=== PATIENT | female | born 1990 | race African-American/Black ===

== ENCOUNTER 2016-05-12 12:18 | Emergency (ER) | payer OTHER ==
[~2016-05-12 12:18] MED LIST: ABIL5TAB; ALBU83IN IN; ALPR0.5T3 OR; AMBI10TA PO; AMBI5TAB; DULO20CA OR; FLOV44AE INH; HYDR25TA8 PO; IBUP600T OR; MOTR200T44 PO; NABU750T PO; PAIN325T OR; PEPC20TA2 PO; PRED20TA PO; PREG50CA OR; SING10TA31 OR; STUACAP PO; TRAM50TA2 OR; TRAZ50TA OR; TYLE325T5 PO; VOLT1GEL EX; ZOLO50TA; ZOLO50TA OR; drisdol PO
[2016-05-12 14:01] LABS: BASO # 0.1 K/mm3 (0.0-0.2); BASO % 1.3 % (0.0-1.0); EOS # 0.1 K/mm3 (0.0-0.50); EOS % 1.2 % (0.0-3.0); LARGE UNSTAINED CELL # 0.1 K/mm3 (0.0-0.4); LARGE UNSTAINED CELL % 2.7 % (0.0-4.0); LYMPH # 1.7 K/mm3 (1.5-6.5); LYMPH % 29.8 % (24.0-44.0); MEAN CORPUSCULAR HEMOGLOBIN 31.4 pg (27.0-33.0); MEAN CORPUSCULAR HGB CONC 33.5 g/dl (32.0-36.5); MEAN CORPUSCULAR VOLUME 93.9 fl (80.0-96.0); MONO # 0.4 K/mm3 (0.0-0.8); MONO % 7.9 % (0.0-5.0); NEUTROPHILS % 57.1 % (36.0-66.0); PLATELET COUNT, AUTOMATED 241 k/mm3 (150-450); RED CELL DISTRIBUTION WIDTH 12.2 % (11.5-14.5); WHITE BLOOD COUNT 5.3 K/mm3 (4.0-10.0)
[2016-05-12 14:22] LABS: ANION GAP 10 MEQ/L (8-16); BLOOD UREA NITROGEN 7 MG/DL (7-18); CALCIUM LEVEL 9.2 MG/DL (8.5-10.1); CARBON DIOXIDE LEVEL 24 MEQ/L (21-32); CHLORIDE LEVEL 105 MEQ/L (98-107); CREATININE FOR GFR 1.09 MG/DL (0.55-1.02); GLOMERULAR FILTRATION RATE > 60.0 (>60); GLUCOSE, FASTING 78 MG/DL (70-105); SODIUM LEVEL 139 MEQ/L (136-145)
--- NOTE | 2016-05-12 14:56 | EDDOCDS ---
Nurse's Notes [facility] Name: Dayna Orantes Age: 26 yrs Sex: Female : 1990 Arrival Date: 05/12/2016 Time: 12:18 Bed D2 Private MD: [facility] - Adults Diagnosis: Shortness of breath;Dizziness and giddiness;Nausea Presentation: 05/12 12:26 Presenting complaint: Patient states: lightheaded, night sweats and chills for 2 days. srm fever last night. feels weak not eating and drinking- nausea. Adult Sepsis Screening: The patient does not have new or worsening altered mentation. Patient's respiratory rate is less than 22. Systolic blood pressure is greater than 100. Patient has a qSOFA score of 0- Negative Sepsis Screen. Suicide/Homicide risk assessment- the patient denies having any suicidal and/or homicidal ideations and does not present with any other emotional, behavioral or mental health complaints. Status: Patient is not a service specialist or dependent. Transition of care: patient was not received from another setting of care. 12:26 Acuity: MIKO Level 4 srm 12:26 Method Of Arrival: Walkin/Carried/Asstd srm Triage Assessment: 12:27 General: Appears in no apparent distress, Behavior is appropriate for age, cooperative. srm Pain: Pain currently is 7 out of 10 on a pain scale. HIV screening NA for this visit Offered previously. RN WOUND: 12:27 LMP 03/30/2016 srm Historical: - Allergies: no known allergies; - Home Meds: 1. none - PMHx: Seasonal Allergies; Asthma; - PSHx: Orthopedic Surgery; - Social history: Smoking status: Patient states former smoker of tobacco. No barriers to communication noted, The patient speaks fluent Croatian, Speaks appropriately for age. - : The pt / caregiver states he / she is not on anticoagulants. Home medication list is obtained from the patient. - Exposure Risk Screening:: None identified. Screenin:55 Screening information is obtained from the patient. Fall risk: No risks identified. mcp Assistance ADL's: requires no assistance with activities of daily living. Abuse/DV Screen: The patient / caregiver reports he/she is: not in a situation that causes fear, pain or injury. Nutritional screening: No deficits noted. Advance Directives: There is no active DNR order. home support is adequate. Assessment: 14:00 General: Mom refusing to have anything done until baby is discharged.. [facility] 14:10 General: Pt stating that we are taking too long and that she is going to leave. [facility] Vital Signs: 12:21 BP 132 / 78; Pulse 110; Resp 18 S; Temp 98.9(O); Pulse Ox 98% on R/A; Weight 70.31 kg gr2 (R); Height 5 ft. 8 in. (172.72 cm) (R); Pain 7/10; 12:21 Body Mass Index 23.57 (70.31 kg, 172.72 cm) 2 Vitals: 12:21 Log In Time: May 12, 2016 at 12:21. gr2 ED Course: 12:20 Patient visited by Tatiana Zavala. gr2 12:20 [facility] is Private Physician. gr2 12:20 Patient moved to Waiting gr2 12:23 Patient visited by Tatiana Zavala. gr2 12:23 Patient moved to Pre RCE gr2 12:27 Triage Initiated srm 13:11 Patient moved to D2 ar3 13:16 Laurie Shelby,RN is Primary Nurse. srm 13:19 Kyle Fairbanks PA-C is PHCP. ar2 13:19 Saul Saldana MD is Attending Physician. ar2 13:19 Patient visited by Kyle Fairbanks PA-C. ar2 14:42 [facility] is Referral Physician. ar2 Order Results: Lab Order: CBC with Diff; SPEC'M 05/12/16 13:46 Test: WHITE BLOOD COUNT; Value: 5.3; Range: 4.0-10.0; Units: K/mm3; Status: F Test: RED BLOOD COUNT; Value: 4.54; Range: 4.00-5.40; Units: M/mm3; Status: F Test: HEMOGLOBIN; Value: 14.3; Range: 12.0-16.0; Units: g/dl; Status: F Test: HEMATOCRIT; Value: 42.7; Range: 36.0-47.0; Units: %; Status: F Test: MEAN CORPUSCULAR VOLUME; Value: 93.9; Range: 80.0-96.0; Units: fl; Status: F Test: MEAN CORPUSCULAR HEMOGLOBIN; Value: 31.4; Range: 27.0-33.0; Units: pg; Status: F Test: MEAN CORPUSCULAR HGB CONC; Value: 33.5; Range: 32.0-36.5; Units: g/dl; Status: F Test: RED CELL DISTRIBUTION WIDTH; Value: 12.2; Range: 11.5-14.5; Units: %; Status: F Test: PLATELET COUNT, AUTOMATED; Value: 241; Range: 150-450; Units: k/mm3; Status: F Test: NEUTROPHILS %; Value: 57.1; Range: 36.0-66.0; Units: %; Status: F Test: LYMPH %; Value: 29.8; Range: 24.0-44.0; Units: %; Status: F Test: MONO %; Value: 7.9; Range: 0.0-5.0; Abnormal: Above high normal; Units: %; Status: F Test: EOS %; Value: 1.2; Range: 0.0-3.0; Units: %; Status: F Test: BASO %; Value: 1.3; Range: 0.0-1.0; Abnormal: Above high normal; Units: %; Status: F Test: LARGE UNSTAINED CELL %; Value: 2.7; Range: 0.0-4.0; Units: %; Status: F Test: NEUTROPHILS #; Value: 3.0; Range: 1.8-7.7; Units: K/mm3; Status: F Test: LYMPH #; Value: 1.7; Range: 1.5-6.5; Units: K/mm3; Status: F Test: MONO #; Value: 0.4; Range: 0.0-0.8; Units: K/mm3; Status: F Test: EOS #; Value: 0.1; Range: 0.0-0.50; Units: K/mm3; Status: F Test: BASO #; Value: 0.1; Range: 0.0-0.2; Units: K/mm3; Status: F Test: LARGE UNSTAINED CELL #; Value: 0.1; Range: 0.0-0.4; Units: K/mm3; Status: F Lab Order: MED Profile; SPEC'M 05/12/16 13:46 Test: GLUCOSE, FASTING; Value: 78; Range: 70-105; Units: MG/DL; Status: F Test: BLOOD UREA NITROGEN; Value: 7; Range: 7-18; Units: MG/DL; Status: F Test: CREATININE FOR GFR; Value: 1.09; Range: 0.55-1.02; Abnormal: Above high normal; Units: MG/DL; Status: F Test: GLOMERULAR FILTRATION RATE; Value: > 60.0; Range: >60; Status: F Test: SODIUM LEVEL; Value: 139; Range: 136-145; Units: MEQ/L; Status: F Test: POTASSIUM SERUM; Value: 4.0; Range: 3.5-5.1; Units: MEQ/L; Status: F Test: CHLORIDE LEVEL; Value: 105; Range: 98-107; Units: MEQ/L; Status: F Test: CARBON DIOXIDE LEVEL; Value: 24; Range: 21-32; Units: MEQ/L; Status: F Test: ANION GAP; Value: 10; Range: 8-16; Units: MEQ/L; Status: F Test: CALCIUM LEVEL; Value: 9.2; Range: 8.5-10.1; Units: MG/DL; Status: F Test Note: ; Units are mL/min/1.73 m2 Chronic Kidney Disease Staging per NKF: Stage I & II GFR >=60 Normal to Mildly Decreased Stage III GFR 30-59 Moderately Decreased Stage IV GFR 15-29 Severely Decreased Stage V GFR <15 Very Little GFR Left ESRD GFR <15 on ADHESION TESTER Lab Order: D-Dimer Quant; SPEC'M 05/12/16 13:46 Test: D-DIMER QUANT; Value: 535.4; Range: <500; Abnormal: Above high normal; Units: ng/ml; Status: F Lab Order: -Influenza A&B Rapid Antigen - Nose; SPEC'M 05/12/16 13:46 Test: INFLUENZA A RAPID SCR by ICA; Value: INFLUENZA A RESULTS NEGATIVE; Status: F Test: INFLUENZA A RAPID SCR by ICA; Value: Comments:; Status: F Test: INFLUENZA B RAPID SCR by ICA; Value: INFLUENZA B RESULTS NEGATIVE; Status: F Test Note: ; The Influenza test is a direct rapid immunoassay for the qualitative detection of Influenza viral antigen. Cell culture (Viral Culture) testing should be considered to confirm NEGATIVE results and to assist in detecting other viruses that can provide similar clinical symptoms. Please contact the lab within 24 hours ([phone]) if confirmatory testing is desired. Outcome: 14:43 Patient left against medical advice. ar2 14:55 The patient is leaving AMA: AMA form signed, Notification of AMA status is made to the [facility] charge nurse, the social welfare clerk, the ED attending physician. 14:56 Patient left the ED. [facility] Signatures: Neda Wells, RN RN [facility] Arlette Wooten RN RN Kyle Duncan PA-C PA-C ar2 Jocelyn Cristina PCA CODING SPECIALIST ar3 Tatiana Zavala gr2 MTDD
--- NOTE | 2016-05-12 14:56 | EDDOCDS ---
Physician Documentation [facility] Name: Dayna Orantes Age: 26 yrs Sex: Female : 1990 Arrival Date: 05/12/2016 Time: 12:18 Bed D2 Private MD: [facility] - Adults Disposition: 05/12/16 14:43 Patient has left against medical advice. Impression: Shortness of breath, Dizziness and giddiness, Nausea. - Patients states they are going to Home/Self Care. - Condition is Unknown. - Discharge Instructions: AMA. Medication Reconciliation, Local Pharmacy Hours form. Follow up: Emergency Department; Reason: Recheck today's complaints, Worsening of conditions. Follow up: [facility] - Adults; When: Call to arrange an appointment; Reason: Continuance of care. - Problem is new. - Symptoms are unchanged. Historical: - Allergies: no known allergies; - Home Meds: 1. none - PMHx: Seasonal Allergies; Asthma; - PSHx: Orthopedic Surgery; - Social history: Smoking status: Patient states former smoker of tobacco. No barriers to communication noted, The patient speaks fluent Bengali, Speaks appropriately for age. - : The pt / caregiver states he / she is not on anticoagulants. Home medication list is obtained from the patient. - Exposure Risk Screening:: None identified. 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 8 in. (172.72 cm) (R); Pain 7/10; 12:21 Body Mass Index 23.57 (70.31 kg, 172.72 cm) gr2 MDM: 13:37 IV Saline Lock ordered. ar2 13:37 Accucheck ordered. ar2 13:37 UCG by Nursing ordered. ar2 13:37 NS 0.9% 1000 ml IV at bolus once ordered. ar2 13:37 Ondansetron 4 mg IVP once ordered. ar2 13:37 Obtain sample by nasopharyngeal swab ordered. ar2 13:37 Urine Toxicology Ordered. EDMS 13:38 CBC with Diff Ordered. EDMS 13:38 MED Profile Ordered. EDMS 13:38 D-Dimer Quant Ordered. EDMS 13:38 -Influenza A&B Rapid Antigen - Nose Ordered. EDMS 14:07 Financial registration complete. lg 14:20 Consult PFS/PSA/International Account Manager: Safety Concerns ordered. ar2 14:20 CBC with Diff Reviewed. ar2 14:20 D-Dimer Quant Reviewed. ar2 14:40 MED Profile Reviewed. ar2 14:40 -Influenza A&B Rapid Antigen - Nose Reviewed. ar2 Signatures: Dispatcher [employer] EDNeda Godoy, RN RN srm Arlette Wooten RN RN mcp Migue Her, Reg Reg lg Kyle Fairbanks, BEATA COTA ar2 MTDD
--- NOTE | 2016-05-14 15:57 | EDDOCDS ---
Nurse's Notes [facility] Name: Dayna Orantes Age: 26 yrs Sex: Female : 1990 Arrival Date: 05/12/2016 Time: 12:18 Bed D2 Private MD: [facility] - Adults Diagnosis: Shortness of breath;Dizziness and giddiness;Nausea Presentation: 05/12 12:26 Presenting complaint: Patient states: lightheaded, night sweats and chills for 2 days. srm fever last night. feels weak not eating and drinking- nausea. Adult Sepsis Screening: The patient does not have new or worsening altered mentation. Patient's respiratory rate is less than 22. Systolic blood pressure is greater than 100. Patient has a qSOFA score of 0- Negative Sepsis Screen. Suicide/Homicide risk assessment- the patient denies having any suicidal and/or homicidal ideations and does not present with any other emotional, behavioral or mental health complaints. Status: Patient is not a correctional food service supervisor or dependent. Transition of care: patient was not received from another setting of care. 12:26 Acuity: MIKO Level 4 srm 12:26 Method Of Arrival: Walkin/Carried/Asstd srm Triage Assessment: 12:27 General: Appears in no apparent distress, Behavior is appropriate for age, cooperative. srm Pain: Pain currently is 7 out of 10 on a pain scale. HIV screening NA for this visit Offered previously. 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 none - PMHx: Seasonal Allergies; Asthma; - PSHx: Orthopedic Surgery; - Social history: Smoking status: Patient states former smoker of tobacco. No barriers to communication noted, The patient speaks fluent Guinean, Speaks appropriately for age. - : The pt / caregiver states he / she is not on anticoagulants. Home medication list is obtained from the patient. - Exposure Risk Screening:: None identified. Screenin:55 Screening information is obtained from the patient. Fall risk: No risks identified. mcp Assistance ADL's: requires no assistance with activities of daily living. Abuse/DV Screen: The patient / caregiver reports he/she is: not in a situation that causes fear, pain or injury. Nutritional screening: No deficits noted. Advance Directives: There is no active DNR order. home support is adequate. Assessment: 14:00 General: Mom refusing to have anything done until baby is discharged.. [facility] 14:10 General: Pt stating that we are taking too long and that she is going to leave. [facility] Social Work Consult: 19:05 Social Work Note: Pt signed out AMA earlier, test show that her D-Dimer was elevated. Phone # listed for pt is out of service. [place] police contacted, went to pt's home and had her call this sql report writer. Pt declines to return to ED, states that she will get this information from her primary doctor tomorrow. No further intervention required at this time. Vital Signs: 12:21 BP 132 / 78; Pulse 110; Resp 18 S; Temp 98.9(O); Pulse Ox 98% on R/A; Weight 70.31 kg gr2 (R); Height 5 ft. 8 in. (172.72 cm) (R); Pain 7/10; 12:21 Body Mass Index 23.57 (70.31 kg, 172.72 cm) gr2 Vitals: 12:21 Log In Time: May 12, 2016 at 12:21. gr2 ED Course: 12:20 Patient visited by Tatiana Zavala. gr2 12:20 [facility] is Private Physician. gr2 12:20 Patient moved to Waiting gr2 12:23 Patient visited by Tatiana Zavala. gr2 12:23 Patient moved to Pre RCE gr2 12:27 Triage Initiated srm 13:11 Patient moved to D2 ar3 13:16 Laurie Shelby,RN is Primary Nurse. srm 13:19 Kyle Fairbanks PA-C is PHCP. ar2 13:19 Saul Saldana MD is Attending Physician. ar2 13:19 Patient visited by Kyle Fairbanks PA-C. ar2 14:42 [facility] is Referral Physician. ar2 16:03 Patient name changed from Dayna\S\\S\Orantes\S\ to Dayna\S\Eleonora\S\Orantes. EDMS 16:04 [facility] Payment Agreement was scanned into [employer] and attached to record. 05/13 09:27 Refusal of Services was scanned into [employer] and attached to record. 09:27 T-Sheet-- Draft Copy was scanned into [employer] and attached to record. gb Attachments: 05/13 09:27 Refusal of Services gb Order Results: Lab Order: CBC with Diff; SPEC'M 05/12/16 13:46 Test: WHITE BLOOD COUNT; Value: 5.3; Range: 4.0-10.0; Units: K/mm3; Status: F Test: RED BLOOD COUNT; Value: 4.54; Range: 4.00-5.40; Units: M/mm3; Status: F Test: HEMOGLOBIN; Value: 14.3; Range: 12.0-16.0; Units: g/dl; Status: F Test: HEMATOCRIT; Value: 42.7; Range: 36.0-47.0; Units: %; Status: F Test: MEAN CORPUSCULAR VOLUME; Value: 93.9; Range: 80.0-96.0; Units: fl; Status: F Test: MEAN CORPUSCULAR HEMOGLOBIN; Value: 31.4; Range: 27.0-33.0; Units: pg; Status: F Test: MEAN CORPUSCULAR HGB CONC; Value: 33.5; Range: 32.0-36.5; Units: g/dl; Status: F Test: RED CELL DISTRIBUTION WIDTH; Value: 12.2; Range: 11.5-14.5; Units: %; Status: F Test: PLATELET COUNT, AUTOMATED; Value: 241; Range: 150-450; Units: k/mm3; Status: F Test: NEUTROPHILS %; Value: 57.1; Range: 36.0-66.0; Units: %; Status: F Test: LYMPH %; Value: 29.8; Range: 24.0-44.0; Units: %; Status: F Test: MONO %; Value: 7.9; Range: 0.0-5.0; Abnormal: Above high normal; Units: %; Status: F Test: EOS %; Value: 1.2; Range: 0.0-3.0; Units: %; Status: F Test: BASO %; Value: 1.3; Range: 0.0-1.0; Abnormal: Above high normal; Units: %; Status: F Test: LARGE UNSTAINED CELL %; Value: 2.7; Range: 0.0-4.0; Units: %; Status: F Test: NEUTROPHILS #; Value: 3.0; Range: 1.8-7.7; Units: K/mm3; Status: F Test: LYMPH #; Value: 1.7; Range: 1.5-6.5; Units: K/mm3; Status: F Test: MONO #; Value: 0.4; Range: 0.0-0.8; Units: K/mm3; Status: F Test: EOS #; Value: 0.1; Range: 0.0-0.50; Units: K/mm3; Status: F Test: BASO #; Value: 0.1; Range: 0.0-0.2; Units: K/mm3; Status: F Test: LARGE UNSTAINED CELL #; Value: 0.1; Range: 0.0-0.4; Units: K/mm3; Status: F Lab Order: MED Profile; [facility]' 05/12/16 13:46 Test: GLUCOSE, FASTING; Value: 78; Range: 70-105; Units: MG/DL; Status: F Test: BLOOD UREA NITROGEN; Value: 7; Range: 7-18; Units: MG/DL; Status: F Test: CREATININE FOR GFR; Value: 1.09; Range: 0.55-1.02; Abnormal: Above high normal; Units: MG/DL; Status: F Test: GLOMERULAR FILTRATION RATE; Value: > 60.0; Range: >60; Status: F Test: SODIUM LEVEL; Value: 139; Range: 136-145; Units: MEQ/L; Status: F Test: POTASSIUM SERUM; Value: 4.0; Range: 3.5-5.1; Units: MEQ/L; Status: F Test: CHLORIDE LEVEL; Value: 105; Range: 98-107; Units: MEQ/L; Status: F Test: CARBON DIOXIDE LEVEL; Value: 24; Range: 21-32; Units: MEQ/L; Status: F Test: ANION GAP; Value: 10; Range: 8-16; Units: MEQ/L; Status: F Test: CALCIUM LEVEL; Value: 9.2; Range: 8.5-10.1; Units: MG/DL; Status: F Test Note: ; Units are mL/min/1.73 m2 Chronic Kidney Disease Staging per NKF: Stage I & II GFR >=60 Normal to Mildly Decreased Stage III GFR 30-59 Moderately Decreased Stage IV GFR 15-29 Severely Decreased Stage V GFR <15 Very Little GFR Left ESRD GFR <15 on NUCLEAR FUELS RESEARCH ENGINEER Lab Order: D-Dimer Quant; SPEC'M 05/12/16 13:46 Test: D-DIMER QUANT; Value: 535.4; Range: <500; Abnormal: Above high normal; Units: ng/ml; Status: F Lab Order: -Influenza A&B Rapid Antigen - Nose; SPEC'M 05/12/16 13:46 Test: INFLUENZA A RAPID SCR by ICA; Value: INFLUENZA A RESULTS NEGATIVE; Status: F Test: INFLUENZA A RAPID SCR by ICA; Value: Comments:; Status: F Test: INFLUENZA B RAPID SCR by ICA; Value: INFLUENZA B RESULTS NEGATIVE; Status: F Test Note: ; The Influenza test is a direct rapid immunoassay for the qualitative detection of Influenza viral antigen. Cell culture (Viral Culture) testing should be considered to confirm NEGATIVE results and to assist in detecting other viruses that can provide similar clinical symptoms. Please contact the lab within 24 hours ([phone]) if confirmatory testing is desired. Outcome: 05/12 14:43 Patient left against medical advice. ar2 14:55 The patient is leaving AMA: AMA form signed, Notification of AMA status is made to the [facility] charge nurse, the social security benefits interviewer, the ED attending physician. 14:56 Patient left the ED. [facility] Signatures: Dispatcher [employer] EDMS Neda Wells RN RN [facility] Arlette Wooten RN RN [facility] Magdiel Griggs, MAURA PSA ac Pricilla Nicole, Reg Reg gb Migue Her, Reg Reg lg Kyle Fairbanks PA-Matteo PAMonica ar2 Jocelyn Cristina, ISAIAS MANAGER ADVERTISING ar3 Tatiana Zavala gr2 Chart Complete MTDD
--- NOTE | 2016-05-14 15:57 | EDDOCDS ---
Physician Documentation [facility] Name: Dayna Orantes Age: 26 yrs Sex: Female : 1990 Arrival Date: 05/12/2016 Time: 12:18 Bed D2 Private MD: [facility] - Adults Disposition: 05/12/16 14:43 Patient has left against medical advice. Impression: Shortness of breath, Dizziness and giddiness, Nausea. - Patients states they are going to Home/Self Care. - Condition is Unknown. - Discharge Instructions: AMA. Medication Reconciliation, Local Pharmacy Hours form. Follow up: Emergency Department; Reason: Recheck today's complaints, Worsening of conditions. Follow up: [facility] - Adults; When: Call to arrange an appointment; Reason: Continuance of care. - Problem is new. - Symptoms are unchanged. Historical: - Allergies: no known allergies; - Home Meds: 1. none - PMHx: Seasonal Allergies; Asthma; - PSHx: Orthopedic Surgery; - Social history: Smoking status: Patient states former smoker of tobacco. No barriers to communication noted, The patient speaks fluent Wolof, Speaks appropriately for age. - : The pt / caregiver states he / she is not on anticoagulants. Home medication list is obtained from the patient. - Exposure Risk Screening:: None identified. 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 8 in. (172.72 cm) (R); Pain 7/10; 12:21 Body Mass Index 23.57 (70.31 kg, 172.72 cm) gr2 MDM: 13:37 IV Saline Lock ordered. ar2 13:37 Accucheck ordered. ar2 13:37 UCG by Nursing ordered. ar2 13:37 NS 0.9% 1000 ml IV at bolus once ordered. ar2 13:37 Ondansetron 4 mg IVP once ordered. ar2 13:37 Obtain sample by nasopharyngeal swab ordered. ar2 13:37 Urine Toxicology Ordered. EDMS 13:38 CBC with Diff Ordered. EDMS 13:38 MED Profile Ordered. EDMS 13:38 D-Dimer Quant Ordered. EDMS 13:38 -Influenza A&B Rapid Antigen - Nose Ordered. EDMS 14:07 Financial registration complete. lg 14:20 Consult PFS/PSA/Breastfeeding Peer Counselor: Safety Concerns ordered. ar2 14:20 CBC with Diff Reviewed. ar2 14:20 D-Dimer Quant Reviewed. ar2 14:40 MED Profile Reviewed. ar2 14:40 -Influenza A&B Rapid Antigen - Nose Reviewed. ar2 16:04 [facility] Payment Agreement was scanned into [email or web address] and attached to record. lg 05/13 09:27 Refusal of Services was scanned into [employer] and attached to record. gb 09:27 T-Sheet-- Draft Copy was scanned into [employer] and attached to record. gb Signatures: Dispatcher [employer] Neda Parra, Arlette Abernathy RN, RN RN mcp Barnhardt, Gloria, Reg Reg gb Migue Her, Reg Reg lg Kyle Fairbanks, BEATA PAMonica ar2 The chart was reviewed and I authenticate all verbal orders and agree with the evaluation and treatment provided.Attachments: 05/12 16:04 [facility] Payment Agreement lg 09:27 T-Sheet-- Draft Copy gb Chart Complete MTDD
--- NOTE | 2016-05-14 15:57 | EDDOCDS ---
Physician Documentation [facility] Name: Dayna Orantes Age: 26 yrs Sex: Female : 1990 Arrival Date: 05/12/2016 Time: 12:18 Bed D2 Private MD: [facility] Disposition: 05/12/16 14:43 Patient has left against medical advice. Impression: Shortness of breath, Dizziness and giddiness, Nausea. - Patients states they are going to Home/Self Care. - Condition is Unknown. - Discharge Instructions: AMA. Medication Reconciliation, Local Pharmacy Hours form. Follow up: Emergency Department; Reason: Recheck today's complaints, Worsening of conditions. Follow up: [facility]; When: Call to arrange an appointment; Reason: Continuance of care. - Problem is new. - Symptoms are unchanged. Historical: - Allergies: no known allergies; - Home Meds: 1. none - PMHx: Seasonal Allergies; Asthma; - PSHx: Orthopedic Surgery; - Social history: Smoking status: Patient states former smoker of tobacco. No barriers to communication noted, The patient speaks fluent Estonian, Speaks appropriately for age. - : The pt / caregiver states he / she is not on anticoagulants. Home medication list is obtained from the patient. - Exposure Risk Screening:: None identified. 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 8 in. (172.72 cm) (R); Pain 7/10; 12:21 Body Mass Index 23.57 (70.31 kg, 172.72 cm) gr2 MDM: 13:37 IV Saline Lock ordered. ar2 13:37 Accucheck ordered. ar2 13:37 UCG by Nursing ordered. ar2 13:37 NS 0.9% 1000 ml IV at bolus once ordered. ar2 13:37 Ondansetron 4 mg IVP once ordered. ar2 13:37 Obtain sample by nasopharyngeal swab ordered. ar2 13:37 Urine Toxicology Ordered. EDMS 13:38 CBC with Diff Ordered. EDMS 13:38 MED Profile Ordered. EDMS 13:38 D-Dimer Quant Ordered. EDMS 13:38 -Influenza A&B Rapid Antigen - Nose Ordered. EDMS 14:07 Financial registration complete. lg 14:20 Consult PFS/PSA/Jail Manager: Safety Concerns ordered. ar2 14:20 CBC with Diff Reviewed. ar2 14:20 D-Dimer Quant Reviewed. ar2 14:40 MED Profile Reviewed. ar2 14:40 -Influenza A&B Rapid Antigen - Nose Reviewed. ar2 16:04 [facility] [place] was scanned into [employer] and attached to record. lg 05/13 09:27 Refusal of Services was scanned into [employer] and attached to record. gb 09:27 T-Sheet-- Draft Copy was scanned into [employer] and attached to record. gb Signatures: Dispatcher [employer] Neda Parra, Arlette Abernathy RN, RN RN mcp Barnhardt, Gloria, Reg Reg gb Migue Her, Reg Reg lg Kyle Fairbanks, BEATA PAMonica ar2 The chart was reviewed and I authenticate all verbal orders and agree with the evaluation and treatment provided.Attachments: 05/12 16:04 [facility] [place] Agreement lg 09:27 T-Sheet-- Draft Copy gb Chart Complete MTDD
== END 2016-05-12 14:13 | disposition left against medical advice (07) ==
LOC: M ED 12:18
DX: R42 Dizziness and giddiness (principal); R11.0 Nausea; R05 Cough; J45.909 Unspecified asthma, uncomplicated; Z87.891 Personal history of nicotine dependence

== ENCOUNTER → 2016-09-01 | Outpatient (CLI) | payer OTHER ==
--- NOTE | 2016-09-02 05:44 | REP ---
Clinical: Paresthesia. Technique: AP, lateral, bilateral oblique views of the right and left hand. Findings: The osseous structures and joint spaces are intact and normal. There is no evidence for acute fracture or dislocation. Surrounding soft tissues are unremarkable. No subcutaneous emphysema or radiodense foreign body. Impression: Normal examination. No acute fracture or dislocation of the right or left hand. Signed by Ryan Bailey MD 09/02/2016 05:35 A
--- NOTE | 2016-09-02 06:15 | REP ---
Clinical: Paresthesia. Technique: AP, lateral, bilateral oblique views right and left wrist. Findings: The carpal bones, surrounding osseous structures, soft tissues, and joint spaces are normal. There is no evidence for acute fracture or dislocation. No subcutaneous emphysema or radiodense foreign body. Impression: Normal wrist series. No acute fracture or dislocation Signed by Ryan Bailey MD 09/02/2016 06:07 A
[2016-09-04 00:06] LABS: Lyme Disease IgG Ab 18 kDa Ban Absent (.); Lyme Disease IgG Ab 23 kDa Ban Present (.); Lyme Disease IgG Ab 28 kDa Ban Absent (.); Lyme Disease IgG Ab 30 kDa Ban Present (.); Lyme Disease IgG Ab 39 kDa Ban Absent (.); Lyme Disease IgG Ab 41 kDa Ban Present (.); Lyme Disease IgG Ab 45 kDa Ban Absent (.); Lyme Disease IgG Ab 58 kDa Ban Absent (.); Lyme Disease IgG Ab 66 kDa Ban Absent (.); Lyme Disease IgG Ab 93 kDa Ban Absent (.); Lyme Disease IgG West Blot Int Negative (.); Lyme Disease IgG/IgM Antibodie <0.91 ISR (0.00-0.90); Lyme Disease IgM Ab 23 kDa Ban Present (.); Lyme Disease IgM Ab 39 kDa Ban Absent (.); Lyme Disease IgM Ab 41 kDa Ban Present (.); Lyme Disease IgM Ab Quantitati 0.97 index (0.00-0.79); Lyme Disease IgM West Blot Int Positive (.)
== END ==
LOC: M LAB 13:08
PROVIDERS: ATTEND Psychiatry & Neurology Neurology
DX: M25.539 Pain in unspecified wrist (principal); R20.2 Paresthesia of skin; M08.9 Juvenile arthritis, unspecified

== ENCOUNTER 2016-09-24 13:41 | Outpatient (RCR) | payer OTHER | END 2016-09-25 | disposition home or self-care (01) | LOC: M PT 13:41 | PROVIDERS: ATTEND Physician Assistant | DX: Z51.89 Encounter for other specified aftercare (principal); M72.2 Plantar fascial fibromatosis; M76.61 Achilles tendinitis, right leg ==

== ENCOUNTER → 2017-02-09 | Outpatient (REF) | payer OTHER ==
[2017-02-09 16:37] LABS: BASO % 0.6 % (0.0-1.0); EOS # 0.2 10^3/uL (0.0-0.50); EOS % 2.9 % (0.0-3.0); IMMATURE GRANULOCYTE % 0.1 % (0-0); LYMPH # 2.5 10^3/uL (1.5-6.5); LYMPH % 37.2 % (24.0-44.0); MEAN CORPUSCULAR HEMOGLOBIN 30.7 pg (27.0-33.0); MEAN CORPUSCULAR HGB CONC 33.4 g/dl (32.0-36.5); MEAN CORPUSCULAR VOLUME 91.7 fl (80.0-96.0); MONO # 0.5 10^3/uL (0.0-0.8); MONO % 6.6 % (0.0-5.0); NEUTROPHILS # 3.6 10^3/uL (1.8-7.7); NEUTROPHILS % 52.6 % (36.0-66.0); PLATELET COUNT, AUTOMATED 268 10^3/uL (150-450); RED CELL DISTRIBUTION WIDTH 12.3 % (11.5-14.5); WHITE BLOOD COUNT 6.8 10^3/uL (4.0-10.0)
[2017-02-09 16:49] LABS: ALBUMIN 4.1 GM/DL (3.2-5.2); ALBUMIN/GLOBULIN RATIO 1.21 (1.00-1.93); ALKALINE PHOSPHATASE 69 U/L (45-117); ALT/SGPT 14 U/L (12-78); ANION GAP 5 MEQ/L (8-16); AST/SGOT 6 U/L (7-37); BILIRUBIN,TOTAL 0.5 MG/DL (0.2-1.0); BLOOD UREA NITROGEN 10 MG/DL (7-18); CARBON DIOXIDE LEVEL 26 MEQ/L (21-32); CHLORIDE LEVEL 109 MEQ/L (98-107); CREATININE FOR GFR 0.89 MG/DL (0.55-1.02); GLOMERULAR FILTRATION RATE > 60.0 (>60); GLUCOSE, FASTING 88 MG/DL (70-105); POTASSIUM SERUM 3.9 MEQ/L (3.5-5.1); SODIUM LEVEL 140 MEQ/L (136-145); TOTAL PROTEIN 7.5 GM/DL (6.4-8.2)
[2017-02-09 17:23] LABS: ERYTHROCYTE SEDIMENTATION RATE 15 mm/hr (0-20)
== END ==
LOC: M LABDRAW1 15:43
PROVIDERS: ATTEND Internal Medicine Infectious Disease
DX: A69.20 Lyme disease, unspecified (principal); R76.8 Other specified abnormal immunological findings in serum

== ENCOUNTER → 2017-02-12 | Outpatient (REF) | payer OTHER | LOC: M SFHCPLAZ 16:08 | PROVIDERS: ATTEND Nurse Practitioner Family | DX: Z00.00 Encounter for general adult medical examination without abnormal findings (principal); E55.9 Vitamin D deficiency, unspecified; F41.8 Other specified anxiety disorders; Z53.9 Procedure and treatment not carried out, unspecified reason ==

== ENCOUNTER 2017-05-18 09:43 | Emergency (ER) | payer OTHER ==
[2017-05-18] MEDS: IPRATROPIUM 0.5MG/ALBUTEROL 2.5MG INH SOL UD 3ML (DUONEB)(J7620) NEB (10:39)
[2017-05-18 10:55] LABS: APPEARANCE, URINE CLEAR (CLEAR); BACTERIA, URINE AUTO NEGATIVE (NEGATIVE); BILIRUBIN, URINE AUTO NEGATIVE (NEGATIVE); BLOOD, URINE BLOOD NEGATIVE (NEGATIVE); COLOR, URINE YELLOW (YELLOW); GLUCOSE, URINE (UA) AUTO NEGATIVE (NEGATIVE); KETONE, URINE AUTO NEGATIVE (NEGATIVE); LEUKOCYTE ESTERASE, URINE AUTO NEGATIVE (NEGATIVE); MUCUS, URINE SMALL (NEGATIVE); NITRITE, URINE AUTO NEGATIVE (NEGATIVE); PROTEIN, URINE AUTO 1+ mg/dL (NEGATIVE); RBC, URINE AUTO 3 /HPF (0-3); SPECIFIC GRAVITY URINE AUTO 1.023 (1.002-1.035); SQUAMOUS EPITHELIAL CELL UR AU 3 /HPF (0-6); UROBILINOGEN, URINE AUTO 0.2 mg/dL (0.0-2.0); WBC, URINE AUTO 2 /HPF (0-3)
[2017-05-18] MEDS: ONDANSETRON 4MG/2ML VIAL (J2405) IV (10:57)
[2017-05-18] MEDS: NS 1,000 ML IV (10:57)
[2017-05-18] MEDS: ACETAMINOPHEN 325 MG TAB PO (10:58)
[2017-05-18 11:06] LABS: BASO % 0.2 % (0.0-1.0); EOS % 0.2 % (0.0-3.0); HEMATOCRIT 40.5 % (36.0-47.0); HEMOGLOBIN 13.8 g/dl (12.0-16.0); IMMATURE GRANULOCYTE % 0.2 % (0-3.0); LYMPH # 1.4 10^3/uL (1.5-6.5); MEAN CORPUSCULAR HEMOGLOBIN 31.2 pg (27.0-33.0); MEAN CORPUSCULAR HGB CONC 34.1 g/dl (32.0-36.5); MEAN CORPUSCULAR VOLUME 91.6 fl (80.0-96.0); MONO # 0.5 10^3/uL (0.0-0.8); MONO % 8.6 % (0.0-5.0); NEUTROPHILS # 3.6 10^3/uL (1.8-7.7); NEUTROPHILS % 65.8 % (36.0-66.0); PLATELET COUNT, AUTOMATED 256 10^3/uL (150-450); RED BLOOD COUNT 4.42 10^6/uL (4.00-5.40); RED CELL DISTRIBUTION WIDTH 12.4 % (11.5-14.5); WHITE BLOOD COUNT 5.5 10^3/uL (4.0-10.0)
[2017-05-18 11:25] LABS: ANION GAP 10 MEQ/L (8-16); BLOOD UREA NITROGEN 9 MG/DL (7-18); CALCIUM LEVEL 8.8 MG/DL (8.5-10.1); CARBON DIOXIDE LEVEL 24 MEQ/L (21-32); CHLORIDE LEVEL 105 MEQ/L (98-107); GLOMERULAR FILTRATION RATE > 60.0 (>60); GLUCOSE, FASTING 89 MG/DL (70-100); POTASSIUM SERUM 3.5 MEQ/L (3.5-5.1); SODIUM LEVEL 139 MEQ/L (136-145)
[2017-05-18 11:32] LABS: LACTIC ACID SEPSIS PROTOCOL 0.8 MMOL/L (0.4-2.0)
[2017-05-18 11:34] LABS: INFLUENZA A AMPLIFICATION NEGATIVE (NEGATIVE); INFLUENZA B AMPLIFICATION POSITIVE (NEGATIVE)
[2017-05-18] MEDS: ALBUTEROL SULFATE 2.5 MG/0.5 ML INH NEB SOLN NEB (11:47)
== END 2017-05-18 12:25 | disposition home or self-care (01) ==
LOC: M ED 09:43
DX: J10.1 Influenza due to other identified influenza virus with other respiratory manifestations (principal); J45.901 Unspecified asthma with (acute) exacerbation; I45.19 Other right bundle-branch block; R51 Headache; R56.9 Unspecified convulsions; Z87.891 Personal history of nicotine dependence; Z79.3 Long term (current) use of hormonal contraceptives
CPT/HCPCS: J2405

== ENCOUNTER 2018-07-30 14:48 | Emergency (ER) | payer OTHER ==
[~2018-07-30] VITALS: Ht 172.7 cm; Wt 88.1 kg
[2018-07-30 14:48] VITALS: BP 158/93
[~2018-07-30 14:48] MED LIST changes: +ALBU83IN INH; +CYMB1CAP4 OR; -DULO20CA OR; +MEDR1VL IM; +NEBUMIS2 XX; +THERPAK PO; +ZOFR4TAB14 PO
[2018-07-30 15:37] LABS: BASO % 0.4 % (0.0-1.0); EOS # 0.2 10^3/uL (0.0-0.50); EOS % 2.8 % (0.0-3.0); HEMATOCRIT 39.1 % (36.0-47.0); HEMOGLOBIN 13.2 g/dl (12.0-15.5); LYMPH # 3.1 10^3/uL (1.5-6.5); LYMPH % 42.2 % (24.0-44.0); MEAN CORPUSCULAR HEMOGLOBIN 31.4 pg (27.0-33.0); MEAN CORPUSCULAR HGB CONC 33.8 g/dl (32.0-36.5); MEAN CORPUSCULAR VOLUME 93.1 fl (80.0-96.0); MONO # 0.5 10^3/uL (0.0-0.8); MONO % 6.5 % (0.0-5.0); NEUTROPHILS # 3.5 10^3/uL (1.8-7.7); NEUTROPHILS % 47.8 % (36.0-66.0); PLATELET COUNT, AUTOMATED 318 10^3/uL (150-450); WHITE BLOOD COUNT 7.4 10^3/uL (4.0-10.0)
[2018-07-30 16:07] LABS: BLOOD UREA NITROGEN 7 MG/DL (7-18); CALCIUM LEVEL 8.7 MG/DL (8.5-10.1); CARBON DIOXIDE LEVEL 23 MEQ/L (21-32); CHLORIDE LEVEL 111 MEQ/L (98-107); CREATININE FOR GFR 1.05 MG/DL (0.55-1.30); GLOMERULAR FILTRATION RATE > 60.0 (>60); GLUCOSE, FASTING 97 MG/DL (70-100); HCG, SERUM QUANTITATIVE < 1.0 MIU/ML; POTASSIUM SERUM 3.9 MEQ/L (3.5-5.1); SODIUM LEVEL 141 MEQ/L (136-145)
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
[2018-07-30 16:18] LABS: APPEARANCE, URINE CLEAR (CLEAR); BACTERIA, URINE AUTO NEGATIVE (NEGATIVE); BILIRUBIN, URINE AUTO NEGATIVE (NEGATIVE); BLOOD, URINE BLOOD NEGATIVE (NEGATIVE); COLOR, URINE YELLOW (YELLOW); GLUCOSE, URINE (UA) AUTO NEGATIVE (NEGATIVE); KETONE, URINE AUTO TRACE mg/dL (NEGATIVE); LEUKOCYTE ESTERASE, URINE AUTO 1+ (NEGATIVE); MUCUS, URINE SMALL (NEGATIVE); NITRITE, URINE AUTO NEGATIVE (NEGATIVE); PROTEIN, URINE AUTO 1+ mg/dL (NEGATIVE); RBC, URINE AUTO 6 /HPF (0-3); SPECIFIC GRAVITY URINE AUTO 1.028 (1.002-1.035); SQUAMOUS EPITHELIAL CELL UR AU 3 /HPF (0-6); UROBILINOGEN, URINE AUTO 0.2 mg/dL (0.0-2.0); WBC, URINE AUTO 2 /HPF (0-3)
== END 2018-07-30 17:00 | disposition left against medical advice (07) ==
LOC: M ED 14:48
DX: R10.2 Pelvic and perineal pain (principal); G43.909 Migraine, unspecified, not intractable, without status migrainosus; J45.909 Unspecified asthma, uncomplicated; F41.9 Anxiety disorder, unspecified; F32.9 Major depressive disorder, single episode, unspecified; F31.9 Bipolar disorder, unspecified; Z79.899 Other long term (current) drug therapy

== ENCOUNTER 2019-06-11 05:21 | Emergency (ER) | payer OTHER ==
[~2019-06-11] VITALS: Ht 172.7 cm; Wt 81.7 kg
[2019-06-11] MEDS ORDERED: NS 1,000 ML IV ONE (07:00)
[2019-06-11] MEDS ORDERED: ONDANSETRON 4MG/2ML VIAL (J2405) IV ONE (07:45)
[2019-06-11 07:46] LABS: BASO % 0.3 % (0.0-1.0); EOS # 0.1 10^3/uL (0.0-0.5); EOS % 1.5 % (0.0-3.0); HEMATOCRIT 40.6 % (36.0-47.0); HEMOGLOBIN 13.5 g/dl (12.0-15.5); MEAN CORPUSCULAR HGB CONC 33.3 g/dl (32.0-36.5); MEAN CORPUSCULAR VOLUME 93.1 fl (80.0-96.0); MONO # 0.6 10^3/uL (0.0-0.8); MONO % 8.1 % (0.0-5.0); NEUTROPHILS # 4.2 10^3/uL (1.5-8.5); NEUTROPHILS % 60.8 % (36.0-66.0); PLATELET COUNT, AUTOMATED 336 10^3/uL (150-450); RED BLOOD COUNT 4.36 10^6/uL (4.00-5.40); WHITE BLOOD COUNT 6.8 10^3/uL (4.0-10.0)
[2019-06-11 08:04] LABS: HCG, SERUM QUALITATIVE NEGATIVE (NEGATIVE)
[2019-06-11 08:11] LABS: INFLUENZA A AMPLIFICATION NEGATIVE (NEGATIVE); INFLUENZA B AMPLIFICATION NEGATIVE (NEGATIVE)
[2019-06-11 08:13] LABS: ALBUMIN 3.8 GM/DL (3.2-5.2); ALT/SGPT 18 U/L (12-78); BILIRUBIN,DIRECT < 0.1 MG/DL (0.0-0.2); BILIRUBIN,TOTAL 0.2 MG/DL (0.2-1.0); BLOOD UREA NITROGEN 9 MG/DL (7-18); CALCIUM LEVEL 8.3 MG/DL (8.5-10.1); CARBON DIOXIDE LEVEL 21 MEQ/L (21-32); CHLORIDE LEVEL 112 MEQ/L (98-107); CK-MB VALUE MASS < 1.0 NG/ML (<3.6); CPK CREATINE PHOSPHOKINASE 93 U/L (26-192); CREATININE FOR GFR 0.94 MG/DL (0.55-1.30); GLOMERULAR FILTRATION RATE > 60.0 (>60); GLUCOSE, FASTING 92 MG/DL (70-100); LIPASE 86 U/L (73-393); MB/CK RELATIVE INDEX 1.08 (< OR =4); SODIUM LEVEL 139 MEQ/L (136-145); TOTAL PROTEIN 7.7 GM/DL (6.4-8.2); TROPONIN I < 0.02 NG/ML (< 0.10)
[2019-06-11] MEDS ORDERED: PANTOPRAZOLE 40MG INJ (PROTONIX) (C9113) IV ONE (09:15)
[2019-06-11] MEDS ORDERED: KETOROLAC 30 MG/ML VIAL (J1885) IV ONE (09:15)
[2019-06-11 09:42] VITALS: BP 133/89
== END 2019-06-11 10:00 | disposition home or self-care (01) ==
LOC: M ED 05:21
DX: R10.84 Generalized abdominal pain (principal); R19.7 Diarrhea, unspecified; Z20.9 Contact with and (suspected) exposure to unspecified communicable disease; A69.20 Lyme disease, unspecified; G43.909 Migraine, unspecified, not intractable, without status migrainosus; F31.9 Bipolar disorder, unspecified; J45.909 Unspecified asthma, uncomplicated; Z87.448 Personal history of other diseases of urinary system
CPT/HCPCS: 80048; 80076; 81001; 82550; 82553; 83690; 84703; 85025; 87502; 96361; 96374; 96375; 99284; C9113; J1885; J2405

== ENCOUNTER → 2019-06-20 | Outpatient (REF) ==
[2019-06-21 08:20] LABS: RUBELLA IgG QUALITATIVE IMMUNE (IMMUNE)
== END ==
LOC: M LAB 14:14
PROVIDERS: ATTEND Nurse Practitioner Adult Health
DX: Z00.00 Encounter for general adult medical examination without abnormal findings (principal)

== ENCOUNTER 2019-09-06 15:03 | Emergency (ER) | payer OTHER ==
[~2019-09-06] VITALS: Ht 172.7 cm; Wt 78.0 kg
[2019-09-06] MEDS ORDERED: ACET-683 PO (15:15)
[2019-09-06] MEDS ORDERED: IBUP200C25 PO (15:15)
[2019-09-06] MEDS ORDERED: CYCL5TAB PO (16:13)
[2019-09-06] MEDS ORDERED: KETO10TAB PO (16:13)
[2019-09-06] MEDS ORDERED: KETOROLAC 60MG 2ML VIAL IM ONE (16:15)
[2019-09-06 16:26] VITALS: BP 146/93
== END 2019-09-06 16:54 | disposition home or self-care (01) ==
LOC: M ED 15:03
DX: M54.31 Sciatica, right side (principal); S86.811A Strain of other muscle(s) and tendon(s) at lower leg level, right leg, initial encounter; Y92.89 Other specified places as the place of occurrence of the external cause; Y93.89 Activity, other specified; Y99.9 Unspecified external cause status
CPT/HCPCS: 96372; 99283; J1885

== ENCOUNTER → 2019-11-09 | Outpatient (CLI) | payer OTHER ==
[~2019-11-09] MED LIST changes: +ACET-683 PO; +AMOX500T; +CYCL5TAB PO; +HYDR-3715 PO; +IBUP200C25 PO; +KETO10TAB PO; +VENTAER INH
--- NOTE | 2019-12-19 08:42 | REP ---
PELVIC ULTRASOUND: HISTORY: Right pelvic pain. FINDINGS: Real time sonographic imaging of the pelvis is performed utilizing transabdominal and endovaginal technique. The bladder measures 6.4 x 5.1 cm. The uterus measures 7.7 x 4.3 x 4.5 cm. Endometrial thickness is 3 mm. There is no endometrial fluid collection. The right ovary is somewhat enlarged, measuring 4.1 x 3.9 x 3.8 cm. The left ovary measures 2.9 x 1.3 x 1.8 cm. There is a complex likely hemorrhagic cyst of the right ovary containing internal echos and septations. This measures 3.8 x 3.3 x 3.5 cm. There is no other evidence of adnexal mass or free fluid. There is no evidence of ovarian torsion with duplex Doppler evaluation. IMPRESSION: Complex cyst right ovary 3.8 cm maximally. No free fluid or torsion. MTDD
== END ==
LOC: M WHC 15:00
PROVIDERS: ATTEND Physician Assistant
DX: N83.201 Unspecified ovarian cyst, right side (principal)

== ENCOUNTER 2020-01-29 15:29 | Emergency (ER) | payer OTHER ==
[~2020-01-29] VITALS: Ht 175.3 cm; Wt 84.7 kg
[~2020-01-29 15:29] MED LIST changes: -AMOX500T; -HYDR-3715 PO; -VENTAER INH
[2020-01-29] MEDS ORDERED: AMOX500T (15:40)
[2020-01-29] MEDS ORDERED: VENTAER INH (15:40)
[2020-01-29] MEDS ORDERED: LIDOCAINE VISCOUS 2% SOLN 15ML UDC SS ONE (16:30)
[2020-01-29] MEDS ORDERED: HYDR-3715 PO (16:59)
[2020-01-29 17:03] VITALS: BP 152/75
== END 2020-01-29 17:34 | disposition home or self-care (01) ==
LOC: M ED 15:29
DX: K08.89 Other specified disorders of teeth and supporting structures (principal); J45.909 Unspecified asthma, uncomplicated; F31.9 Bipolar disorder, unspecified; G43.909 Migraine, unspecified, not intractable, without status migrainosus; F41.9 Anxiety disorder, unspecified

== ENCOUNTER → 2020-02-15 | Outpatient (REF) | payer OTHER, SELFPAY ==
[~2020-02-15] MED LIST changes: +AMOX500T; +HYDR-3715 PO; +VENTAER INH
== END ==
LOC: M LABSMTC 08:00 → EDSTATUS 13:20
PROVIDERS: ATTEND Pediatrics
DX: Z20.828 Contact with and (suspected) exposure to other viral communicable diseases (principal)

== ENCOUNTER 2020-04-14 07:32 | Emergency (ER) | payer OTHER, SELFPAY ==
[~2020-04-14] VITALS: Ht 172.7 cm; Wt 82.0 kg
[2020-04-14 07:33] VITALS: BP 141/94
--- OUTSIDE RECORDS SUMMARY | 2020-04-14 07:43 | CCD ---
Author Author [facility] Organization [facility] Address Unknown Phone Unavailable Care Team Providers Care Rake Operator Name Role Phone Yashira Morgan Unavailable PROBLEMS Type Condition ICD9-CM Code [id number] Code Onset Dates Condition S tatus SNOMED Code Notes Problem Vitamin D deficiency E55.9 Active 27958150 Problem Depression with anxiety F41.8 Active 64589273 6 Problem Lyme disease A69.20 Active 73271095 Problem Unspecified asthma, uncomplicated J45.909 Active 05019173 Problem Migraine without status migr ainosus, not intractable, unspecified migraine type G43.909 Active 22029828 Problem ANTONI (generalized anxiety disorder) F41.1 Activ e 61104159 Problem Rheumatoid factor positive R76.8 Active 98937 9004 Problem Depressive disorder F32.9 Active 79931189 ALLERGIES Allergen (clinical drug ingredient) Drug/Non Drug Allergy do cumented on EMR Reaction Allergy Type Onset Date Status seasonal Unknown Non Drug Allergy Active ENCOUNTERS from 1989 to 2020-02-21 Encounter Location Date Provider Diagnosis [address] [address] Sep, Yashira Eddie Right lower quadrant pain R10.31 ; Lyme disease A69.20 ; ANTONI (generalized anxiety disorder) F41.1 ; Depression with anxiety F41.8 ; Migraine without status migrainosus, not intractable, unspecified migraine type G43.909 ; Rheumatoid factor positive R76.8 ; Unspecified asthma, uncomplicated J45.909 ; Vitamin D deficiency E55.9 and Screening for lipid disorders Z13.220 IMMUNIZATIONS Vaccine Route Administration Date Status Influenza (6mo & up) Fluzone Unknown Feb 12, 2017 Adm inistered SOCIAL HISTORY Tobacco Use: Social History Observation Description Date Details (start date - stop date) Former Smoker Sex Assigned At : Social History Observation Description Sex Assigned At Unknown Audit Question Answer Notes Total Score: 1 Interpretation: Alcohol Education Sexual Hx: Question Answer Notes Had sex in the last 12 months (vaginal, oral, or anal)? Yes LMP: 10/16/2019 Have you ever had an STD? Yes Prevention Strategies discussed: Other with Men only Use protection? Yes Chlamydia? Yes How often? 20% Drug and Alcohol Question Answer Notes Interpretation: No problems reported Total Score: 0 Alcohol Screening: Question Answer Notes Did you have a drink containing alcohol in the past year? Ye s Points 1 Interpretation Negative How often did you have six or more drinks on one occas ion in the past year? Never (0 points) How many drinks did you have on a typica l day when you were drinking in the past year? 1 or 2 (0 points) How often did you have a drink containing alcohol in t he past year? Monthly or less (1 point) Tobacco Use: Question Answer Notes Are you a: former smoker How long has it been since you last smoked? 1-5 years REASON FOR REFERRAL No Information VITAL SIGNS Weight 183.2 lbs Sep, Height 67.5 in Sep, BMI 28.27 kg/m2 Sep, Heart Rate 100 /min Sep, Respiratory Rate 18 /min Sep, Temperature 97.9 degrees Fahrenheit Sep, Oximetry 99 Sep, Blood pressure systolic 120 mm Hg Sep, Blood pressure diastolic 82 mm Hg Sep, MEDICATIONS Medication SIG (Take, Route, Frequency, Duration) Notes Start Da te End Date Status Ibuprofen 200 MG 3 tablet every 4 hours Orally every 4 hours Active Diflucan 150 MG 1 tablet Orally take at onse t of symptoms; repeat after 72 hours if your symptoms persist for 4 days Jan, Active Albuterol Sulfate HFA 108 (90 Base) MCG/ACT 2 puffs In halation as needed for 30 days Sep, Active Hydrocodone-Acetaminophen 5-325 MG 1 tablet as needed Orally three times a day as needed for 5 days Jan, Active Doxycycline Hyclate 100 MG 1 tablet Orally every 12 hrs Jan, Not-Taking Desvenlafaxine Succinate ER 25 MG 2 tablets Orally Once a day Not-Taking Depo-Provera 150 MG/ML 1 ml Intramuscular Not-Taking Cyclobenzaprine HCl 5 MG 1 tablet at bedtime Orally As needed Not-Taking Ibuprofen 800 MG 1 tablet with food or milk a s needed Orally three times a day as needed for 30 days Jan, Active Augmentin 875-125 MG 1 tablet Orally Twice a day for 10 day(s) Jan, Active Ketorolac Tromethamine 10 MG 1 tablet with food or mil k as needed Orally every 6 hrs for 5 day(s) Not-Taking Paxil 20 MG 1 tablet in the morning Orally Once a day Not-Taking PROCEDURES No Information RESULTS REASON FOR VISIT transfer from [facility] MEDICAL (GENERAL) HISTORY Type Description Date Medical History Right ankle/foot pain Medical History Migraine Medical History Depression/anxiety Surgical History Right foot surgery for Ankle Fx Hospitalization History Suicidal ideations in [facility] 03/2010 Goals Section No Information Health Concerns No Information MEDICAL EQUIPMENT No Information MENTAL STATUS No Information FUNCTIONAL STATUS No Information ASSESSMENTS Encounter Date Diagnosis Assessment Notes Treatment Notes Treatm ent Clinical Notes Sep, Right lower quadrant pain (ICD-10 - R10.31) will order ultrasound for patient, if pain worsens, does not go away or patient develops a fever, nausea/vomiting/diarrhea she should go to the ED, patient agrees with the plan Sep, Lyme disease (ICD-10 - A69.20) will check lyme titers today due to patients muscle weakness and fatigue Sep, ANTONI (generalized anxiety disorder) (ICD-10 - F41 .1) chronic, doing well without any medications currently Sep, Depression with anxiety (ICD-10 - F41.8) as above Sep, Migraine without status migr ainosus, not intractable, unspecified migraine type (ICD-10 - G43.909) doing well with OTC medications Sep, Rheumatoid factor positive (ICD-10 - R76.8) will check all rhematologic labs today Sep, Unspecified asthma, uncomplicated (ICD-10 - J45. 909) well controlled Sep, Vitamin D deficiency (ICD-10 - E55.9) will recheck vitamin D levels today Sep, Screening for lipid disorders (ICD-10 - Z13.220) PLAN OF TREATMENT Medication Medication Name Sig Start Date Stop Date Diflucan 150 MG 1 tablet Orally take at onse t of symptoms; repeat after 72 hours if your symptoms persist for 4 days Jan, Augmentin 875-125 MG 1 tablet Orally Twice a day for 10 day(s) 1 0 Jan, 2020 Ibuprofen 800 MG 1 tablet with food or milk a s needed Orally three times a day as needed for 30 days Jan, Hydrocodone-Acetaminophen 5-325 MG 1 tablet as needed Orally three times a day as needed for 5 days Jan, Treatment Notes Assessment Notes Clinical Notes Right lower quadrant pain will order ult rasound for patient, if pain worsens, does not go away or patient develops a fever, nausea/vomiting/diarrhea she should go to the ED, patient agrees with the plan Lyme disease will check lyme tite rs today due to patients muscle weakness and fatigue ANTONI (generalized anxiety disorder) chron ic, doing well without any medications currently Depression with anxiety as above Migraine without status migrainosus, not intractable, unspecified migraine type doing well with OTC medications Rheumatoid factor positive will check al l rhematologic labs today Unspecified asthma, uncomplicated well c ontrolled Vitamin D deficiency will recheck vitami n D levels today Next Appt Details 4 Weeks Reason: Insurance Providers Payer Name Payer Address Payer Phone Insured Name Patient Relati onship to Insured Coverage Start Date Coverage End Date [facility] CORPOR[facility] CLAIMS DEPT [address] [facility] [phone] JEMMA PAEZ self
--- OUTSIDE RECORDS SUMMARY | 2020-04-14 07:43 | CCD ---
Author Author [facility] Organization [facility] Address Unknown Phone Unavailable Care Team Providers Care Field Staff Manager Name Role Phone Albina Nguyen Unavailable PROBLEMS Type Condition ICD9-CM Code [id number] Code Onset Dates Condition S tatus SNOMED Code Notes Problem Vitamin D deficiency E55.9 Active 14382988 Problem Depression with anxiety F41.8 Active 36025830 6 Problem Lyme disease A69.20 Active 36332492 Problem Unspecified asthma, uncomplicated J45.909 Active 38671348 Problem Migraine without status migr ainosus, not intractable, unspecified migraine type G43.909 Active 53465832 Problem ANTONI (generalized anxiety disorder) F41.1 Activ e 61532739 Problem Rheumatoid factor positive R76.8 Active 94226 9004 Problem Depressive disorder F32.9 Active 92499454 ALLERGIES Allergen (clinical drug ingredient) Drug/Non Drug Allergy do cumented on EMR Reaction Allergy Type Onset Date Status seasonal Unknown Non Drug Allergy Active ENCOUNTERS from 1990 to 2020-02-17 Encounter Location Date Provider Diagnosis [address] [address] Jan, Albinamirta Nguyen IMMUNIZATIONS Vaccine Route Administration Date Status Influenza [...] 20% Drug and Alcohol Question Answer Notes Total Score: 0 Interpretation: No problems reported Alcohol Screening: Question Answer Notes Did you [...] REASON FOR REFERRAL No Information VITAL SIGNS No information MEDICATIONS Medication SIG (Take, Route, Frequency, Duration) [...] a day Not-Taking PROCEDURES No Information RESULTS No Results REASON FOR VISIT need answers MEDICAL (GENERAL) HISTORY Type Description Date Medical History Right ankle/foot pain Medical History Migraine Medical History Depression/anxiety Surgical History Right foot surgery for Ankle Fx Hospitalization History Suicidal ideations in [facility] 03/2010 Goals Section No Information Health Concerns No Information MEDICAL EQUIPMENT No Information MENTAL STATUS No Information FUNCTIONAL STATUS No Information ASSESSMENTS No Information PLAN OF TREATMENT Medication Medication Name Sig [...] a day as needed for 30 days 10 Jan, 2020 Hydrocodone-Acetaminophen 5-325 MG 1 tablet as needed Orally three times a day as needed for 5 days Jan, Insurance Providers Payer Name Payer Address Payer Phone Insured Name Patient Relati onship to Insured Coverage Start Date Coverage End Date [facility] CORPORATE CLAIMS DEPT [address] [place] [phone] JEMMA PAEZ self
--- OUTSIDE RECORDS SUMMARY | 2020-04-14 07:43 | CCD ---
Author Author [facility] Organization [facility] Address Unknown Phone Unavailable Care Team Providers Care Bindery Machine Setter/Set Up Operator Name Role Phone Raven Edwards Unavailable PROBLEMS Type Condition ICD9-CM Code [id number] Code Onset Dates Condition S tatus SNOMED Code Notes Problem Vitamin D deficiency E55.9 Active 97725817 Problem Depression with anxiety F41.8 Active 52279152 6 Problem Lyme disease A69.20 Active 73879925 Problem Unspecified asthma, uncomplicated J45.909 Active 73111578 Problem Migraine without status migr ainosus, not intractable, unspecified migraine type G43.909 Active 24394161 Problem ANTONI (generalized anxiety disorder) F41.1 Activ e 62989820 Problem Rheumatoid factor positive R76.8 Active 56383 9004 Problem Depressive disorder F32.9 Active 05998402 ALLERGIES Allergen (clinical drug ingredient) Drug/Non Drug Allergy do cumented on EMR Reaction Allergy Type Onset Date Status seasonal Unknown Non Drug Allergy Active ENCOUNTERS from 1990 to 2020-02-09 Encounter Location Date Provider Diagnosis [address] [address] Jan, Raven Edwards Tooth pain K08.89 and Dental infection K 04.7 IMMUNIZATIONS Vaccine Route Administration Date Status Influenza [...] FOR REFERRAL No Information VITAL SIGNS Weight 179.4 lbs Jan, Height 67.5 in Jan, BMI 27.68 kg/m2 Jan, Heart Rate 104 /min Jan, Respiratory Rate 18 /min Jan, Temperature 98.3 degrees Fahrenheit Jan, Oximetry 97 Jan, Blood pressure systolic 124 mm Hg Jan, Blood pressure diastolic 80 mm Hg Jan, MEDICATIONS Medication SIG (Take, Route, Frequency, Duration) Start Date En d Date Status Ibuprofen 200 MG 3 tablet every 4 hours Orally every 4 hours Active Diflucan 150 MG 1 tablet Orally take at onse t of symptoms; repeat after 72 hours if your symptoms persist for 4 days Jan, Acti ve Albuterol Sulfate HFA 108 (90 Base) MCG/ACT [...] Orally Twice a day for 10 day(s) 10 N 2019 Active Ketorolac Tromethamine 10 MG 1 tablet with food or mil k as needed Orally every 6 hrs for 5 day(s) Not-Taking Paxil 20 MG 1 tablet in the morning Orally Once a day Not-Taking PROCEDURES No Information RESULTS No Results REASON FOR VISIT mouth pain MEDICAL (GENERAL) HISTORY Type Description Date Medical History Right ankle/foot pain Medical History Migraine Medical History Depression/anxiety Surgical History Right foot surgery for Ankle Fx Hospitalization History Suicidal ideations in [facility] 03/2010 Goals Section No Information Health Concerns No Information MEDICAL EQUIPMENT No Information MENTAL STATUS No Information FUNCTIONAL STATUS No Information ASSESSMENTS Encounter Date Diagnosis Notes Jan, Tooth pain (ICD-10 - K08.89) Jan, Dental infection (ICD-10 - K04.7) PLAN OF TREATMENT Medication Medication Name Sig [...] Jan, Treatment Notes Assessment Notes Clinical Notes Tooth pain Will start antibioticsContin ue Ibuprofen as needed; make sure to take with foodWill refill Vicodin. Avoid additional Tylenol; make sure to increase dietary fiber to avoid constipationPt to f/u with dentist as scheduledF/u with PCP for recheck and to go over labs Next Appt Details f/u labs with Yashira Reason: Provider Name:Yashira Eddie 2020-02-15 03 :15:00 PM, [address] [place], [address], Insurance Providers Payer Name Payer Address Payer Phone Insured Name Patient Relati onship to Insured Coverage Start Date Coverage End Date [facility] CORPORATE CLAIMS DEPT [place] [phone] JEMMA PAEZ self
--- OUTSIDE RECORDS SUMMARY | 2020-04-14 07:43 | CCD ---
Author Author [facility] Organization [facility] Address Unknown Phone Unavailable Care Team Providers Care Call Center Recruiter Name Role Phone Raven Edwards Unavailable PROBLEMS Type Condition ICD9-CM Code [id number] Code Onset Dates Condition S tatus SNOMED Code Notes Problem Vitamin D deficiency E55.9 Active 44822945 Problem Depression with anxiety F41.8 Active 82733937 6 Problem Lyme disease A69.20 Active 92020649 Problem Unspecified asthma, uncomplicated J45.909 Active 11898775 Problem Migraine without status migr ainosus, not intractable, unspecified migraine type G43.909 Active 77131490 Problem ANTONI (generalized anxiety disorder) F41.1 Activ e 16497737 Problem Rheumatoid factor positive R76.8 Active 76980 9004 Problem Depressive disorder F32.9 Active 16902459 ALLERGIES Allergen (clinical drug ingredient) Drug/Non Drug Allergy do cumented on EMR Reaction Allergy Type Onset Date Status seasonal Unknown Non Drug Allergy Active ENCOUNTERS from 1990 to 2020-02-06 Encounter Location Date Provider Diagnosis [address] [address] Jan, Raven Edwards IMMUNIZATIONS Vaccine Route Administration Date Status Influenza [...] 1 tablet Orally every 12 hrs Jan, 7 Not-Taking Desvenlafaxine Succinate ER 25 MG 2 [...] Twice a day for 10 day(s) 10 2019 Active Ketorolac Tromethamine 10 MG 1 tablet with food or mil k as needed Orally every 6 hrs for 5 day(s) Not-Taking Paxil 20 MG 1 tablet in the morning Orally Once a day Not-Taking PROCEDURES No Information RESULTS No Results REASON FOR VISIT Mouth pain MEDICAL (GENERAL) HISTORY Type Description Date Medical History Right ankle/foot pain Medical History Migraine Medical History Depression/anxiety Surgical History Right foot surgery for Ankle Fx Hospitalization History Suicidal ideations in [facility] 03/2010 Goals Section No Information Health [...] day as needed for 5 days Jan, Next Appt Details Provider Name:Yashira Morgan, 2020-02-15 03 :15:00 PM, [address] [place] [address], [phone], Insurance Providers Payer Name Payer Address Payer Phone Insured Name Patient Relati onship to Insured Coverage Start Date Coverage End Date [facility] CORPORATE CLAIMS DEPT [address] [facility] [phone] JEMMA PAEZ self
--- OUTSIDE RECORDS SUMMARY | 2020-04-14 07:43 | CCD ---
Author Author [facility] Organization [facility] Address Unknown Phone Unavailable Care Team Providers Care Alodize Machine Operator Name Role Phone Yashira Morgan Unavailable PROBLEMS Type Condition ICD9-CM Code [id number] Code Onset Dates Condition S tatus SNOMED Code Notes Problem Vitamin D deficiency E55.9 Active 80319863 Problem Depression with anxiety F41.8 Active 60089045 6 Problem Lyme disease A69.20 Active 60031356 Problem Unspecified asthma, uncomplicated J45.909 Active 43511354 Problem Migraine without status migr ainosus, not intractable, unspecified migraine type G43.909 Active 20742530 Problem ANTONI (generalized anxiety disorder) F41.1 Activ e 34345341 Problem Rheumatoid factor positive R76.8 Active 35491 9004 Problem Depressive disorder F32.9 Active 34977847 ALLERGIES Allergen (clinical drug ingredient) Drug/Non Drug Allergy do cumented on EMR Reaction Allergy Type Onset Date Status seasonal Unknown Non Drug Allergy Active ENCOUNTERS from 1990 to 2020-03-02 Encounter Location Date Provider Diagnosis [address] [address] Feb, Yashira Morgan IMMUNIZATIONS Vaccine Route Administration Date Status Influenza [...] Information RESULTS No Results REASON FOR VISIT form? MEDICAL (GENERAL) HISTORY Type Description Date Medical History Right ankle/foot pain Medical History Migraine Medical History Depression/anxiety Surgical History Right foot surgery for Ankle Fx Hospitalization History Suicidal ideations in [facility] 03/2010 Goals Section No Information [...] Insured Coverage Start Date Coverage End Date [facility] CORPORATE CLAIMS DEPT [address] [facility] [phone] JEMMA PAEZ self
--- OUTSIDE RECORDS SUMMARY | 2020-04-14 07:43 | CCD | Continuity of Care Document ---
Author Author [facility] Organization [facility] Address Unknown Phone Unavailable Care Team Providers Care Can Carrier Name Role Phone Candie CUEVAS, Tasha Unavailable Unavailabl e Allergies, Adverse Reactions, Alerts Substance Reaction Status Criticality No Known Allergies Active No Information Medications Medication Instructions Dosage Effective Dates (start - stop) Sta tus Comments multivitamin tablet - Active ALBUTEROL SULFATE HFA (unknown strength) inhale 2 puff by inhalation route every 4 - 6 hours as needed Not Available - Active Problems Condition Effective Dates (start - stop) Clinical Status C omments Body mass index (BMI) 29.0-29.9, adult - Encntr screen for infections w sexl mode of transmiss Encounter for screening for human immunodeficiency virus Encounter for test, result negative Encounter for oth general cnsl and advice on contraception Human immunodeficiency virus [HIV] counseling Other sex counseling 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 Encounter for test, result negative Other sex counseling Human immunodeficiency virus [HIV] counseling Encounter for screening for human immunodeficiency virus Encntr screen for infections w sexl mode of transmiss Encounter for oth general cnsl and advice on contraception Acute vaginitis Encounter for test, result negative Encntr screen for infections w sexl mode of transmiss High risk heterosexual behavior Other sex counseling Encounter for oth general cnsl and advice on contraception Encounter for initial prescription of vagnl ring Acute vaginitis Encounter for test, result negative Encntr screen for infections w sexl mode of transmiss High risk heterosexual behavior Human immunodeficiency virus [HIV] counseling Other sex counseling Encounter for oth general cnsl and advice on contraception Encounter for prescription of emergency contraception Candidiasis of vulva and vagina Encounter for test, result negative Human immunodeficiency virus [HIV] counseling Encntr screen for infections w sexl mode of transmiss High risk heterosexual behavior Encounter for screening for human immunodeficiency virus Other sex counseling Encounter for ot general cnsl and advice on contraception Acute vaginitis Encounter for prescription of emergency contraception Contact w and exposure to infect w a sexl mode of transmiss Encntr screen for infections w sexl mode of transmiss High risk heterosexual behavior Other sex counseling Encounter for ot general cnsl and advice on contraception Candidiasis of vulva and vagina Frequency of micturition Encounter for test, result negative Encounter for surveillance of injectable contraceptive Encntr screen for infections w sexl mode of transmiss Encounter for screening for human immunodeficiency virus High risk heterosexual behavior Human immunodeficiency virus [HIV] counseling Other sex counseling Encounter for ot general cnsl and advice on contraception 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 Encounter for surveillance of injectable contraceptive Encounter for surveillance of injectable contraceptive Encounter for surveillance of injectable contraceptive Encounter for surveillance of injectable contraceptive Human immunodeficiency virus [HIV] counseling Encounter for test, result negative Encounter for screening for human immunodeficiency virus Encntr screen for infections w sexl mode of transmiss High risk heterosexual behavior Encounter for ot general cnsl and advice on contraception Encounter for surveillance of injectable contraceptive 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 Encounter for surveillance of injectable contraceptive Encounter for surveillance of injectable contraceptive Human immunodeficiency virus [HIV] counseling Encounter for ot general cnsl and advice on contraception Encounter for screening for human immunodeficiency virus Encntr screen for infections w sexl mode of transmiss High risk heterosexual behavior Encounter for test, result negative Dysuria 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 Encounter for screening for malignant neoplasm of cervix Encounter for ot general cnsl and advice on contraception Encounter for surveillance of injectable contraceptive Human immunodeficiency virus [HIV] counseling Encounter for surveillance of injectable contraceptive Human immunodeficiency virus [HIV] counseling Encounter for test, result negative Abnormal uterine and vaginal bleeding, unspecified Other specified abnormal uterine and vaginal bleeding 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 Encounter for ot general cnsl and advice on contraception Encntr screen for infections w sexl mode of transmiss High risk heterosexual behavior Acute vaginitis Encounter for screening for human immunodeficiency virus Encounter for test, result negative Encounter for initial prescription of injectable contracep Encounter for oth general cnsl and advice on contraception Encounter for test, result negative Human immunodeficiency virus [HIV] counseling Encntr screen for infections w sexl mode of transmiss Encounter for screening for human immunodeficiency virus High risk heterosexual behavior 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 Height/Weight CVR Med.Svc. Thyroid Palp. CVR Med.Svc. Heart/Lung Ausc. CVR Med.Svc. Breast Exam CVR Med.Svc. Abdominal Palp. CVR Marine Meteorologist.Svc. Contraceptive CVR Marine Meteorologist.Svc. Other CVR Marine Meteorologist.Svc. STI / H Results Test Name Date and Time Measure Units Reference Range Abnormal Flag St atus Comments Panel Description: Cytology report of Ce rvical or vaginal smear or scraping Cyto stain Final ThinPrep/HPV Combo-Thin Prep 00:00:00 NIL N Final SPECIMEN ADEQUACY: Satisfactory for evaluationEndocervical/transformation zone component present.INTERPRETATION:Negative for Intraepithelial Lesion or Malignancy = NoCollected by = Bela Leon NPMarsi Reason for Exam = ROUTINEPrevious Abnormal Dx = ASC-USHormone Rx = NoPost = NoPost Menopause = NoPost Hysterectomy = NoPrevious abnormal biopsy = NoAbnormal bleeding = NoFamily history of jet dyeing machine operator cancer = NoCervix bleeds on contact = NoAnatomical Site = ENDOCERVIXINTERPRETATION VERIFIED & ELECTRONICALLY SIGNED BY:JfMELISSA Dorado(ASCP) ILJThe Pap test is a screening technique to assist in the detection ofpremalignant and malignant lesions of the cervix. It is not a diagnosticprocedure. False negative and false positive results can occur.Diagnosis of any lesion should be made by biopsy, unlesscontraindicated.

Performed by:
CDPriti ([id number])

Panel Description: Thin Prep/HPV Combo - HPV Final Thin Prep/HPV Combo - HPV 00:00:00 Negative N Final HPV: 16 High Risk : NegativeHPV: 18 High Risk : NegativeHPV: Other High Risk : NegativeThe deysi Human Papillomavirus (HPV) assay is a qualitative test for the detection of the 14 highrisk HPV types in patient specimens. The test specifically identifies high risk HPV type 16 and highrisk HPV type 18 while concurrently detecting the 12 other high risk HPV types (31, 3 3, 35, 39,45,51, 52, 56, 58, 59, 66, and 68). If a specimen tests positive for the other high risk HPV types, thepatient is positive for one or more of the 12 other high risk types listed previously. This test iscleared by the FDA as a first-line primary screening test for cervical cancer in women 25 andolder. High risk HPV test results are an adjunct to clinical diagnosis and must be interpreted incontext with patient history, clinical findings, and other laboratory tests including cytology andhistology. False negative and false positive results, while typically unlikely, may occur due topatient or e nvironmental factors which are not well defined.This assay was performed using the Deysi HPV test developed by [employer]. The test utilizesamplification of target DNA by the Polymerase Chain Reaction (PCR) and Nucleic Acid Hybridization(NAH) for the detection of 14 high risk HPV types.: No

Performed by:
CDD ([id number])

Panel Description: HIV-1/HIV-2 Ag/Ab Final HIV-1/HIV-2 Ag/Ab 00:00:00 HIV-1/2 Non-reactive N Final The HIV Antigen (Ag)/Antibody (Ab) Combo ChemiluminescentMicroparticle Immunoassay (CMIA) is used for the simultaneousdetection of both the HIV-1 p24 Antigen and Antibodyto HIV-1 and for the Antibody to HIV-2.

Performed by:
CDD ([id number])

Panel Description: Chlamydia trachomatis rRNA [Presence] in Unspecified specimen by NATALIA with probe detection Final [place] Amplified CT/GC Combo - CT 00:00:00 Negative N Final Performed by:
CDD ([id number])

Panel Description: Neisseria gonorrhoeae rRNA [Presence] in Unspecified specimen by NATALIA with probe detection Final [place] Amplified CT/GC Combo - GC 00:00:00 Negative N Final Performed by:
CDD ([id number])

Panel Description: Syphilis Final Syphilis 00:00:00 NENITA Non-reactive N F inal Infection with T. pallidum (cause of syphilis) unlikely (earlyprimary syphilis cannot be excluded). Requestadditional testing if syphilis is clinically suspected.NENITA: Chemiluminescence immunoassay: No

Performed by:
CDD ([id number])

Panel Description: High Sensitivity Urine Test Fi nal High Sensitivity Urine Test 13:34:30 N egativeLot: [id number]: 02/25/2021 Final Advance Directives Directive Yes / No Effective Date File Name No Information Encounters Encounter Description Practice Location Reason(s) For Visit Diagnose s Date Provider Providers Copied on Encounter PREV VISIT, EST, AGE 18-39 [facility], [address], [place], [id number], [place] tel:[phone] [facility] Prevent ative Visit (chief complaint) Encntr screen for infections w sexl mode of transmissEncounter for screening for human immunodeficiency virusEncounter for test, result negativeEncounter for oth general cnsl and advice on contraceptionHuman immunodeficiency virus [HIV] counselingOther sex counseling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 Candie Cordova. [address] [place] [address], [id number], [place]. tel:[phone] Referring Provider: Tasha polk, [address] [place] [address], [id number]. tel:[phone] [facility], [address] [place] [address], [id number], [place] tel:[phone] [facility] Encounter for pregn marcus test, result negativeOther sex counselingHuman immunodeficiency virus [HIV] counselingEncounter for screening for human immunodeficiency virusEncntr screen for infections w sexl mode of transmissEncounter for oth general cnsl and advice on contraceptionAcute vaginitis Flavia Ybarra. [address] [place], [place], [id number], [place]. tel:[phone] Referring Provider: Amada Alejandro, [address] [place] [address], [id number]. tel:[phone] [facility], [address] [place] [address], [id number], [place] tel:[phone] [facility] Encounter for pregn marcus test, result negativeEncntr screen for infections w sexl mode of transmissHigh risk heterosexual behaviorOther sex counselingEncounter for oth general cnsl and advice on contraceptionEncounter for initial prescription of vagnl ringAcute vaginitis Flavia Ybarra. [address] [place], [place], [id number], [place]. tel:[phone] Referring Provider: Amada Alejandro, [address] [place], [place], [id number]. tel:[phone] [facility], [address] [place] [address], [id number], [place] tel:[phone] [facility] Encounter for pregn marcus test, result negativeEncntr screen for infections w sexl mode of transmissHigh risk heterosexual behaviorHuman immunodeficiency virus [HIV] counselingOther sex counselingEncounter for oth general cnsl and advice on contraceptionEncounter for prescription of emergency contraceptionCandidiasis of vulva and vagina Kaylyn Rosado. [address] [place] [address], [id number], [place]. tel:[phone] Referring Provider: Ashlee Patiño, [address] [place] [address], [id number]. tel:[phone] [facility], [address] [place] [address], [id number], [place] tel:[phone] [facility] Encounter for pregn marcus test, result negativeHuman immunodeficiency virus [HIV] counselingEncntr screen for infections w sexl mode of transmissHigh risk heterosexual behaviorEncounter for screening for human immunodeficiency virusOther sex counselingEncounter for oth general cnsl and advice on contraceptionAcute vaginitisEncounter for prescription of emergency contraceptionContact w and exposure to infect w a sexl mode of transmiss Bart Mckeon. [address] [place] [address], [id number], [place]. tel:[phone] Referring Provider: Linda Arriaga, [address] [place], [place], [id number]. tel:[phone] [facility], [address] [place] [address], [id number], [place] tel:[phone] [facility] Encntr screen for i nfections w sexl mode of transmissHigh risk heterosexual behaviorOther sex counselingEncounter for oth general cnsl and advice on contraceptionCandidiasis of vulva and vaginaFrequency of micturitionEncounter for test, result negative Kaylyn Rosado. [address] [place] [address], [id number], [place]. tel:[phone] Referring Provider: Ashlee Patiño, [address] [place] [address], [id number]. tel:[phone] [facility], [address] [place] [address], [id number], tel:[phone] [facility] Encounter for surve illance of injectable contraceptiveEncntr screen for infections w sexl mode of transmissEncounter for screening for human immunodeficiency virusHigh risk heterosexual behaviorHuman immunodeficiency virus [HIV] counselingOther sex counselingEncounter for oth general cnsl and advice on contraception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Body mass index (BMI) 29.0-29.9, adult Bart Mckeon. [address] [place] [address], [address] [place] [address], . tel:[phone] Referring Provider: Linda Arriaga, [address] [place] [address], [address] [place] [address]. tel:[phone] [facility], [address] [place] [address], [address] [place] [address], tel:[phone] [facility] Encounter for surve illance of injectable contraceptive Bart Mckeon. [address] [place] [address], [address] [place] [address], . tel:[phone] Referring Provider: Linda Arriaga, [address] [place], [place], [id number]. tel:[phone] Provider: PALMIRA Nurse/CA. [facility], [address] [place] [address], [address] [place] [address], tel:[phone] [facility] Encounter for surve illance of injectable contraceptive Kaylyn Rosado. [address] [place] [address], [id number], . tel:[phone] Referring Provider: Ashlee Patiño, [address] [place] [address], [address] [place] [address]. tel:[phone] Provider: PALMIRA Nurse/CA. [facility], [address], [place], [id number], [place] tel:[phone] [facility] Encounter for surve illance of injectable contraceptive Bart Mckeon. [address] [place], [place], [id number], [place]. tel:[phone] Referring Provider: Linda Arriaga, [address] [place], [place], [id number]. tel:[phone] Provider: PALMIRA Nurse/CA. [facility], [address], [place], [id number], [place] tel:[phone] [facility] Encounter for surve illance of injectable contraceptive Kp Melendez. [address] [facility], [place], [place], [id number], [place]. tel:[phone] Referring Provider: Nora Goodrich, [address] [place], [place], [id number]. tel:[phone] Provider: PALMIRA Nurse/CA. [facility], [address] [place] [address], [id number], [place] tel:[phone] [facility] Human immunodeficie ncy virus [HIV] counselingEncounter for test, result negativeEncounter for screening for human immunodeficiency virusEncntr screen for infections w sexl mode of transmissHigh risk heterosexual behaviorEncounter for oth general cnsl and advice on contraceptionEncounter for surveillance of injectable contraceptive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 Kp Melendez. [address], [place] , [id number], [place]. tel:[phone] Referring Provider: Nora Goodrich, [address] [place], [place], [id number]. tel:[phone] [facility], [address] [place] [address], [id number], [place] tel:[phone] [facility] Encounter for surve illance of injectable contraceptive Artemio Andujar. [address] [place], [place], [id number]. tel:[phone] Referring Provider: Pratima Ulloa, [address] [place], [place], [id number]. tel:[phone] Provider: PALMIRA Nurse/CA. [facility], [address] [place] [address], [id number], [place] tel:[phone] [facility] Encounter for surve illance of injectable contraceptiveHuman immunodeficiency virus [HIV] counselingEncounter for oth general cnsl and advice on contraceptionEncounter for screening for human immunodeficiency virusEncntr screen for infections w sexl mode of transmissHigh risk heterosexual behaviorEncounter for test, result negativeDysuria Kp Melendez. [address] [place] [address] , [id number], [place]. tel:[phone] Referring Provider: Nora Goodrich, [address] [place], [place], [id number]. tel:[phone] [facility], [address] [place] [address], [id number], [place] tel:[phone] [facility] 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Encounter for screening for malignant neoplasm of cervixEncounter for oth general cnsl and advice on contraceptionEncounter for surveillance of injectable contraceptive Artemio Andujar . [address] [place] [address], [id number]. tel:[phone] Referring Provider: Pratima Ulloa, [address] [place] [address], [id number]. tel:[phone] [facility], [address] [place] [address], [id number], [place] tel:[phone] [facility] Human immunodeficie ncy virus [HIV] counseling Torres Longoria. [address] [place] [address], [id number], [place]. tel:[phone] Referring Provider: Swati Flores , [address] [place] [address], [id number]. tel:[phone] Provider: PALMIRA Nurse/CA. [facility], [address] [place] [address], [id number], [place] tel:[phone] [facility] Encounter for surve illance of injectable contraceptiveHuman immunodeficiency virus [HIV] counselingEncounter for test, result negativeAbnormal uterine and vaginal bleeding, unspecifiedOther specified abnormal uterine and vaginal bleeding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Encounter for oth general cnsl and advice on contraceptionEncntr screen for infections w sexl mode of transmissHigh risk heterosexual behaviorAcute vaginitisEncounter for screening for human immunodeficiency virus Torres Longoria. [address] [place] [address], [address] [place] [address], [place]. tel:[phone] Referring Provider: Swati Flores , [address] [place] [address], [id number]. tel:[phone] [facility], [address] [place] [address], [id number], [place] tel:[phone] [facility] Encounter for pregn marcus test, result negativeEncounter for initial prescription of injectable contracepEncounter for oth general cnsl and advice on contraception Artemio Crowley. [address] [place] [address], [id number]. tel:[phone] Referring Provider: Pratima Ulloa, [address] [place] [address], [id number]. tel:[phone] [facility], [address] [place] [address], [id number], [place] tel:[phone] [facility] Encounter for pregn marcus test, result negativeHuman immunodeficiency virus [HIV] counselingEncntr screen for infections w sexl mode of transmissEncounter for screening for human immunodeficiency virusHigh risk heterosexual behavior King Jessica. [address] [place] [address], [address] [place] [address]. tel:[phone] Referring Provider: Jessica Judge, [address] [place] [address], [address] [place] [address]. tel:[phone] [facility], [address] [place] [address], [address] [place] [address], tel:[phone] [facility] No Information Montez Sudhakar Morales. [address] [place] [address], [id number], . 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 [address] [place] [address], [id number], . tel:[phone] Family History Family Member Diagnosis Age At Onset Sister No history of Stroke Father No history of Stroke 1st degree relative No hx of venous thromboembolism Father No history of Myocardial infarction 1st degree relative No hx of cancer of breast, colon, endome trium or ovary Mother Alzheimer's Disease Brother No history of Stroke Sister Osteoporosis 11 Mother No history of Stroke Sister No history of Myocardial infarction Sister Osteoporosis 8 Sister Alcoholism 1st degree relative No hx of coronary heart disease (female <65, male <55) Mother No history of Myocardial infarction Brother No history of Myocardial infarction Immunizations Vaccine Date Status Comments No Information Payers Payer name Insurance type Covered constitution party ID Authorization(s ) Rasta QUEEN [facility] CI [id number] Social History Type Description Quantity Date Captured Comments Alcohol Use Details Unknown Caffeine Use Details Unknown Tobacco Use Status No Information Smoking Status Never smoker Sex Female Vital Signs Date / Time: Height Weight BMI Pulse Rate Blood Pressure Temperatu re Respiratory Rate Body Surface Area Head Circumference BMI percentile Pulse Ox In haled Ox 1:12 PM 68.00 in 175.40 lbs 26.67 kg/meter(2) 122/62 m m[Hg] Chief Complaint And Reason For Visit Most recent encounter only, dated 01/17/2020 12:50'. Preventative Visit (chief complaint) Reason For Referral Reason For Referral No Information Plan Of Treatment Date Type Action Status Goal Dietary management education, gu idance, and counseling completed History Of Present Illness Encounter Date Complaint History Of Present I llness No Information Functional Status Date Functional Assessment No Information Medications Administered Medication Instructions Dosage Effective Dates (start - stop) Sta tus Comments No Information Instructions Date Instruction Additional Informati on Dietary management education, guidance, and counseling Related to Body mass index (BMI) 29.0-29.9, adult Assessments Type Assessment Date assessment Encntr screen for infections w sexl mode of transmiss assessment Encounter for screening for human immuno deficiency virus assessment Encounter for test, result neg ative assessment Encounter for oth general cnsl and advic e on contraception assessment Human immunodeficiency virus [HIV] couns eling assessment Other sex counseling assessment 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 Anterior palpation - Normal. No abdominal tenderness. No hepatic enlargement. No splenic enlargement. No palpable mass. Cardiovascular Normal Heart rate - Regular rate. Rhythm - Regular. Heart sounds - Normal S1, Normal S2. Murmurs - None. Extremities - No edema. Extremity Normal No Cyanosis. No Nomi a. Neck Exam Normal Inspection - Normal. Palpation - Normal. Thyroid gland - Normal. Cervical lymph nodes - Normal. Neurological Normal Level of consciousne ss - Normal. Orientation - Normal. Respiratory Normal Inspection - Normal. Auscultation - Normal. Effort - Normal. Skin Normal Inspection - Normal. Palpation/texture - Normal. Breast Normal Inspection - Bilater al: Normal. Palpation - Bilateral: Normal. Nipples - Bilateral: Normal. Lymph nodes - Normal. Genitourinary Normal Urethral meatus - No rmal. External genitalia - Normal. Glands - Normal. Perineum - Normal. Vagina - Normal. Cervix - Normal. Genitourinary Comments Bimanual exam not in dicated.
--- OUTSIDE RECORDS SUMMARY | 2020-04-14 07:43 | CCD ---
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 Name Role Phone Yashira Morgan Unavailable PROBLEMS Type Condition ICD9-CM Code [id number] Code Onset Dates Condition S tatus SNOMED Code Notes Problem Vitamin D deficiency E55.9 Active 16238303 Problem Depression with anxiety F41.8 Active 87144650 6 Problem Lyme disease A69.20 Active 70654342 Problem Unspecified asthma, uncomplicated J45.909 Active 07133551 Problem Migraine without status migr ainosus, not intractable, unspecified migraine type G43.909 Active 49326667 Problem ANTONI (generalized anxiety disorder) F41.1 Activ e 58648558 Problem Rheumatoid factor positive R76.8 Active 10505 9004 Problem Depressive disorder F32.9 Active 10940603 ALLERGIES Allergen (clinical drug ingredient) Drug/Non Drug Allergy do cumented on EMR Reaction Allergy Type Onset Date Status seasonal Unknown Non Drug Allergy Active ENCOUNTERS from 1989 to 2020-03-01 Encounter Location Date Provider Diagnosis [address] [address] Jan, Yashira Eddie IMMUNIZATIONS Vaccine Route Administration Date Status Influenza [...] Information RESULTS No Results REASON FOR VISIT no show MEDICAL (GENERAL) HISTORY Type Description Date Medical History Right ankle/foot pain Medical History Migraine Medical History Depression/anxiety Surgical History Right foot surgery for Ankle Fx Hospitalization History Suicidal ideations in [facility] 03/2010 Goals Section No [...] Insured Coverage Start Date Coverage End Date [facility] [employer] [employer] DEPT [address] [place] [phone] JEMMA PAEZ self
--- OUTSIDE RECORDS SUMMARY | 2020-04-14 07:44 | CCD ---
Author Author [facility] Organization [facility] Address Unknown Phone Unavailable Care Team Providers Care Honeycomb Decapper Name Role Phone Marsha Kuo MD Unavailable Unavailable Marsha Kuo MD Unavailable Unavailable Marsha Kuo MD Unavailable Unavailable Marsha Kuo MD Unavailable Unavailable Marsha Kuo MD Unavailable Unavailable Marsha Kuo MD Unavailable Unavailable Marsha Kuo MD Unavailable Unavailable Marsha Kuo MD Unavailable Unavailable Marsha Kuo MD Unavailable Unavailable Marsha Kuo MD Unavailable Unavailable Marsha Kuo MD Unavailable Unavailable Marsha Kuo MD Unavailable Unavailable Marsha Kuo MD Unavailable Unavailable Marsha Kuo MD Unavailable Unavailable Marsha Kuo MD Unavailable Unavailable Marsha Kuo MD Unavailable Unavailable Ayaan, Marsha Subramanian MD Unavailable Unavailable Ayaan, Marsha Subramanian MD Unavailable Unavailable Ayaan, Marsha Subramanian MD Unavailable Unavailable Ayaan, Marsha Subramanian MD Unavailable Unavailable Ayaan, Marsha Subramanian MD Unavailable Unavailable Ayaan, Marsha Subramanian MD Unavailable Unavailable Ayaan, Marsha Subramanian MD Unavailable Unavailable Ayaan, Marsha Subramanian MD Unavailable Unavailable Ayaan, Marsha Subramanian MD Unavailable Unavailable Ayaan, Marsha Subramanian MD Unavailable Unavailable Ayaan, Marsha Subramanian MD Unavailable Unavailable Ayaan, Marsha Subramanian MD Unavailable Unavailable Ayaan, A Marilynn LARA Unavailable Unavailable Ayaan, Marsha Subramanian MD Unavailable Unavailable Ayaan, Marsha Subramanian MD Unavailable Unavailable Ayaan, Marsah Subramanian MD Unavailable Unavailable Ayaan, Marsha Subramanian MD Unavailable Unavailable Ayaan, A Marilynn LARA Unavailable Unavailable Ayaan, A Marilynn LARA Unavailable Unavailable Ayaan, A Marilynn LARA Unavailable Unavailable Ayaan, A Marilynn LARA Unavailable Unavailable Ayaan, A Marilynn LARA Unavailable Unavailable Ayaan, A Marilynn LARA Unavailable Unavailable Ayaan, Marsha Subramanian MD Unavailable Unavailable Ayaan, A Marilynn LARA Unavailable Unavailable Ayaan, A Marilynn LARA Unavailable Unavailable Ayaan, A Marilynn ALRA Unavailable Unavailable Ayaan, A Marilynn LARA Unavailable Unavailable Ayaan, A Marilynn LARA Unavailable Unavailable Ayaan, Marsha Subramanian MD Unavailable Unavailable Ayaan, Marsha Subramanian MD Unavailable Unavailable Ayaan, Marsha Subramanian MD Unavailable Unavailable Ayaan, A Mrailynn LARA Unavailable Unavailable Ayaan, A Marilynn LARA Unavailable Unavailable Ayaan, A Marilynn LARA Unavailable Unavailable Ayaan, A Marilynn LARA Unavailable Unavailable Ayaan, A Marilynn LARA Unavailable Unavailable Ayaan, Marsha Subramanian MD Unavailable Unavailable Ayaan, Marsha Subramanian MD Unavailable Unavailable Ayaan, Marsha Subramanian MD Unavailable Unavailable Ayaan, Marsha Subramanian MD Unavailable Unavailable Ayaan, Marsha Subramanian MD Unavailable Unavailable Ayaan, Marsha Subramanian MD Unavailable Unavailable Ayaan, Marsha Subramanian MD Unavailable Unavailable Ayaan, Marsha Subramanian MD Unavailable Unavailable Ayaan, Marsha Subramanian MD Unavailable Unavailable Ayaan, Marsha Subramanian MD Unavailable Unavailable Ayaan, Marsha Subramanian MD Unavailable Unavailable Ayaan, Marsha Subramanian MD Unavailable Unavailable Ayaan, Marsha Subramanian MD Unavailable Unavailable Ayaan, A Marilynn LARA Unavailable Unavailable Ayaan, A Marilynn LARA Unavailable Unavailable Ayaan, A Marilynn LARA Unavailable Unavailable Ayaan, Marsha Subramanian MD Unavailable Unavailable Ayaan, Marsha Subramanian MD Unavailable Unavailable Ayaan, Marsha Subramanian MD Unavailable Unavailable Ayaan, Marsha Subramanian MD Unavailable Unavailable Ayaan, Marsha Subramanian MD Unavailable Unavailable Ayaan, Marsha Subramanian MD Unavailable Unavailable Priti Singh MD Unavailable Unavailable Francisco, Priti Arambula MD Unavailable Unavailable Priti Singh MD Unavailable Unavailable Priti Singh MD Unavailable Unavailable Priti Singh MD Unavailable Unavailable Priti Singh MD Unavailable Unavailable Priti Singh MD Unavailable Unavailable Priti Singh MD Unavailable Unavailable Priti Singh MD Unavailable Unavailable Priti Singh MD Unavailable Unavailable Priti Singh MD Unavailable Unavailable Priti Singh MD Unavailable Unavailable Priti Singh MD Unavailable Unavailable Priti Singh MD Unavailable Unavailable Priti Singh MD Unavailable Unavailable Priti Singh MD Unavailable Unavailable Priti Singh MD Unavailable Unavailable Priti Singh MD Unavailable Unavailable Priti Singh MD Unavailable Unavailable Priti Singh MD Unavailable Unavailable Priti Singh MD Unavailable Unavailable Priti Singh MD Unavailable Unavailable Priti Singh MD Unavailable Unavailable Priti Singh MD Unavailable Unavailable Priti Singh MD Unavailable Unavailable Priti Singh MD Unavailable Unavailable Priti Singh MD Unavailable Unavailable Priti Singh MD Unavailable Unavailable Priti Singh MD Unavailable Unavailable Priti Singh MD Unavailable Unavailable Priti Singh MD Unavailable Unavailable Priti Singh MD Unavailable Unavailable Priti Singh MD Unavailable Unavailable Priti Singh MD Unavailable Unavailable Priti Singh MD Unavailable Unavailable Priti Singh MD Unavailable Unavailable Priti Singh MD Unavailable Unavailable Priti Singh MD Unavailable Unavailable Priti Singh MD Unavailable Unavailable Priti Singh MD Unavailable Unavailable Priti Singh MD Unavailable Unavailable Priti Singh MD Unavailable Unavailable Priti Singh MD Unavailable Unavailable Priti Singh MD Unavailable Unavailable Priti Singh MD Unavailable Unavailable Priti Singh MD Unavailable Unavailable Priti Singh MD Unavailable Unavailable Priti Singh MD Unavailable Unavailable Priti Singh MD Unavailable Unavailable Priti Singh MD Unavailable Unavailable Priti Singh MD Unavailable Unavailable Priti Singh MD Unavailable Unavailable Priti Singh MD Unavailable Unavailable Priti Singh MD Unavailable Unavailable Priti Singh MD Unavailable Unavailable Priti Singh MD Unavailable Unavailable Priti Singh MD Unavailable Unavailable Priti Singh MD Unavailable Unavailable Priti Singh MD Unavailable Unavailable Priti Singh MD Unavailable Unavailable Priti Singh MD Unavailable Unavailable Priti Singh MD Unavailable Unavailable Priti Singh MD Unavailable Unavailable Priti Singh MD Unavailable Unavailable Priti Singh MD Unavailable Unavailable Priti Singh MD Unavailable Unavailable Priti Singh MD Unavailable Unavailable Priti Singh MD Unavailable Unavailable Priti Singh MD Unavailable Unavailable Priti Singh MD Unavailable Unavailable Priti Singh MD Unavailable Unavailable Priti Singh MD Unavailable Unavailable Priti Singh MD Unavailable Unavailable Priti Singh MD Unavailable Unavailable Priti Singh MD Unavailable Unavailable Priti Singh MD Unavailable Unavailable Priti Singh MD Unavailable Unavailable Priti Singh MD Unavailable Unavailable Priti Singh MD Unavailable Unavailable Priti Singh MD Unavailable Unavailable Priti Singh MD Unavailable Unavailable Priti Singh MD Unavailable Unavailable Priti Singh MD Unavailable Unavailable Priti Singh MD Unavailable Unavailable Priti Singh MD Unavailable Unavailable Priti Singh MD Unavailable Unavailable Priti Singh MD Unavailable Unavailable Priti Singh MD Unavailable Unavailable Priti Singh MD Unavailable Unavailable [place], J Amada PA Unavailable Unavailable [place], J Amada PA Unavailable Unavailable [place], J Amada PA Unavailable Unavailable [place], J Amada PA Unavailable Unavailable [place], J Amada PA Unavailable Unavailable [place], J Amada PA Unavailable Unavailable [place], J Amada PA Unavailable Unavailable [place], J Amada PA Unavailable Unavailable [place], J Amada PA Unavailable Unavailable [place], J Amada PA Unavailable Unavailable [place], J Amada PA Unavailable Unavailable [place], J Amada PA Unavailable Unavailable [place], J Amada PA Unavailable Unavailable [place], J Amada PA Unavailable Unavailable [place], J Amada PA Unavailable Unavailable [place], J Amada PA Unavailable Unavailable [place], J Amada PA Unavailable Unavailable [place], J Amada PA Unavailable Unavailable [place], J Amada PA Unavailable Unavailable [place], J Amada PA Unavailable Unavailable [place], J Amada PA Unavailable Unavailable [place], J Amada PA Unavailable Unavailable DUANA, H NEDA MASON APPRENTICE Unavailable Unavailable DUANA, H NEDA MASON APPRENTICE Unavailable Unavailable DUANA, H NEDA MASON APPRENTICE Unavailable Unavailable DUANA, H NEDA MASON APPRENTICE Unavailable Unavailable DUANA, H NEDA MASON APPRENTICE Unavailable Unavailable DUANA, H NEDA MASON APPRENTICE Unavailable Unavailable DUANA, H NEDA MASON APPRENTICE Unavailable Unavailable DUANA, H NEDA MASON APPRENTICE Unavailable Unavailable DUANA, H NEDA [place] APPRENTICE Unavailable Unavailable DUANA, H NEDA MASON APPRENTICE Unavailable Unavailable DUANA, H NEDA MASON APPRENTICE Unavailable Unavailable DUANA, H NEDA MASON APPRENTICE Unavailable Unavailable DUANA, H NEDA MASON APPRENTICE Unavailable Unavailable Helen-Edwards, Tasha CNM Unavailable Unavailab le Deneen-Edwards, Tasha CNM Unavailable Unavailab le Helen-Edwards, Tasha CNM Unavailable Unavailab le Helen-Edwards, Tasha CNM Unavailable Unavailab le Deneen-Edwards, Tasha CNM Unavailable Unavailab le Helen-Edwards, Tasha CNM Unavailable Unavailab le Re-disclosure Warning The records that you are about to access may contain information from federally-assisted alcohol or drug abuse programs. If such information is present, then the following federally mandated warning applies: This information has been disclosed to you from records protected by federal confidentiality rules (42 CFR part 2). The federal rules prohibit you from making any further disclosure of this information unless further disclosure is expressly permitted by the written consent of the person to whom it pertains or as otherwise permitted by 42 CFR part 2. A general authorization for the release of medical or other information is NOT sufficient for this purpose. The Federal rules restrict any use of the information to criminally investigate or prosecute any alcohol or drug abuse patient.The records that you are about to access may contain highly sensitive health information, the redisclosure of which is protected by Article 27-F of the [facility] Public Health law. If you continue you may have access to information: Regarding HIV / AIDS; Provided by facilities licensed or operated by the [facility] Office of Mental Health; or Provided by the [facility] Office for People With Developmental Disabilities. If such information is present, then the following [facility] mandated warning applies: This information has been disclosed to you from confidential records which are protected by state law. State law prohibits you from making any further disclosure of this information without the specific written consent of the person to whom it pertains, or as otherwise permitted by law. Any unauthorized further disclosure in violation of state law may result in a fine or fci sentence or both. A general authorization for the release of medical or other information is NOT sufficient authorization for further disc losure. Allergies and Adverse Reactions Type Description Substance Reaction Status Data Source(s ) Food allergy SEASONAL SEAS[place]AL [place] [facility] Family History Family Member Name Family Member Gender Family Member Status Date o f Status Description Data Source(s) Unknown Female Diagnosis 06/08/2018 12:00:00 AM EDT [facility] ([facility]) Unknown Female Diagnosis 04/17/2016 12:00:00 AM EST [facility] ([facility]) Unknown Female Diagnosis 01/31/2016 12:00:00 AM EDT [facility] ([facility]) Unknown Female Diagnosis 01/31/2016 12:00:00 AM EDT [facility] ([facility]) Unknown Female Diagnosis 12/26/2012 12:00:00 AM EDT [facility] ([facility]) Unknown Female Problem [facility] ([facility]) Encounters Encounter Providers Location Date Indications Data Source(s ) [place] [address] [facility] [address] 02/29/2020 12:00:00 AM EST eCW1 ([facility]) [place] [address] [facility] [address] 02/16/2020 12:00:00 AM EST eCW1 ([facility]) [place] [address] [facility] [address] 02/15/2020 12:00:00 AM EST eCW1 ([facility]) Out[place] [address] [facility] [address] 02/06/2020 12:00:00 AM EST eCW1 ([facility]) Outpatient Attender: Ralf Singh MD FP 02/05/2020 03:48:00 PM [facility] [place] [address] [facility] [address] 02/05/2020 12:00:00 AM EST eCW1 ([facility]) Outpatient Attender: Ralf Singh MD FP 02/01/2020 03:42:01 PM [facility] Outpatient Attender: Ralf Singh MD FP 02/01/2020 03:41:01 PM [facility] Outpatient Attender: Ralf Singh MD FP 02/01/2020 12:02:09 AM [facility] Outpatient Attender: Rlaf Singh MD FP 02/01/2020 12:00:09 AM [facility] Outpatient Attender: Ralf Singh MD FP 01/31/2020 02:08:01 PM [facility] Outpatient Attender: Ralf Singh MD FP 01/31/2020 12:14:01 PM [facility] Outpatient Attender: Ralf Singh MD FP 01/31/2020 10:02:00 AM [facility] Outpatient Attender: Ralf Singh MD FP 01/31/2020 08:51:01 AM [facility] OutpatientPREV VISIT, EST, AGE 18-39 Attender: Tasha Pandey CNM PPNCNY [place] 01/17/2020 12:50:00 PM EDT - 01/17/2020 12:50:00 PM ED T 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) w/o abn findingsOther sex counselingHuman immunodeficiency virus [HIV] counselingEncounter for oth general cnsl and advice on contraceptionEncounter for test, result negativeEncounter for screening for human immunodeficiency virusEncntr screen for infections w sexl mode of transmiss [facility] ([facility]) 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) w/o abn findings Other sex counseling Human immunodeficiency virus [HIV] couns eling Encounter for oth general cnsl and advic e on contraception Encounter for test, result neg ative Encounter for screening for human immuno deficiency virus Encntr screen for infections w sexl mode of transmiss Outpatient Attender: Ralf ALFARO 11/23/2019 11:02:01 AM EDT [facility] Attender: Marilynn Kuo MD MAGALY Drummond 02:41:00 PM EDT - 10/20/2019 02:41:00 PM EDT [facility] ([facility] [place] [address] [facility] [address] 10/17/2019 12:00:00 AM EDT eCW1 ([facility]) Outpatient Attender: Ralf ALFARO 09/05/2019 07:47:44 PM EDT [facility] OutpatientOFFICE VISIT, EST Attender: Amada christian 08/30/2019 03:50:00 PM EDT - 08/30/2019 03:50:00 PM EDT Acute vaginitisEncounter for oth general cnsl and advice on contraceptionEncntr screen for infections w sexl mode of transmissEncounter for screening for human immunodeficiency virusHuman immunodeficiency virus [HIV] counselingOther sex counselingEncounter for test, result negative [facility] ([facility]) Acute vaginitis Encounter for oth general cnsl and advic e on contraception Encntr screen for infections w sexl mode of transmiss Encounter for screening for human immuno deficiency virus Human immunodeficiency virus [HIV] couns eling Other sex counseling Encounter for test, result neg ative Outpatient Attender: Ralf Singh MD FP 06/13/2019 03:19:00 PM EDT [facility] Outpatient Attender: Ralf Singh MD FP 06/13/2019 03:15:01 PM EDT [facility] Attender: Amada GALEAS PPMAGALY Gazra 03/29 02:15:00 PM EST - 04/13/2019 02:15:00 PM EST Acute vaginitisEncounter for initial pre scription of vagnl ringEncounter for oth general cnsl and advice on contraceptionOther sex counselingHigh risk heterosexual behaviorEncntr screen for infections w sexl mode of transmissEncounter for test, result negative [facility] ([facility]) Acute vaginitis Encounter for initial prescription of va gnl ring Encounter for oth general cnsl and advic e on contraception Other sex counseling High risk heterosexual behavior Encntr screen for infections w sexl mode of transmiss Encounter for test, result neg ative Attender: NEDA CHAVIS Drummond 05/2018 09:30:00 AM EST - 02/28/2019 09:30:00 AM EST Candidiasis of vulva and vaginaEncounter for prescription of emergency contraceptionEncounter for oth general cnsl and advice on contraceptionOther sex counselingHuman immunodeficiency virus [HIV] co unselingHigh risk heterosexual behaviorEncntr screen for infections w sexl mode of transmissEncounter for test, result negative [facility] Candidiasis of vulva and vagina Encounter for prescription of emergency contraception Encounter for oth general cnsl and advic e on contraception Other sex counseling Human immunodeficiency virus [HIV] couns eling High risk heterosexual behavior Encntr screen for infections w sexl mode of transmiss Encounter for test, result neg ative Medications Medication Brand Name Start Date Product Form Dose Route Admi nistrative Instructions Pharmacy Instructions Status Indications Reaction Description Data Source(s) Acetaminophen 325 MG / Hydrocodone Zak trate 5 MG Oral Tablet Hydrocodone- Acetaminophen 5-325 MG Hydrocodone-Acetaminophen 5-325 MG 02/06/2020 12:00:00 AM EST 1.0 {tablet_as_needed} active Hydrocodone-Acetaminophen 5-325 MG eCW1 ([facility]) Acetaminophen 325 MG / Hydrocodone Zak trate 5 MG Oral Tablet Hydrocodone- Acetaminophen 5-325 MG Hydrocodone-Acetaminophen 5-325 MG 02/06/2020 12:00:00 AM EST 1.0 {tablet_as_needed} active Hydrocodone-Acetaminophen 5-325 MG eCW1 ([facility]) Ibuprofen 800 MG Oral Tablet Ibuprofen 800 MG 02/06/2020 12:00:[address] active Ibuprofen 800 MG [facility]CW1 ([facility]) Ibuprofen 800 MG Oral Tablet Ibuprofen 800 MG 02/06/2020 12:00:[address] active Ibuprofen 800 MG eCW1 ([facility]) Fluconazole 150 MG Oral Tablet [Diflucan] Diflucan 150 MG Di flucan 150 MG 02/06/2020 12:00:00 AM EST 1.0 {tablet} active Diflucan 150 MG eCW1 ([facility]) Acetaminophen 325 MG / Hydrocodone Zak trate 5 MG Oral Tablet Hydrocodone- Acetaminophen 5-325 MG Hydrocodone-Acetaminophen 5-325 MG 02/06/2020 12:00:00 AM EST 1.0 {tablet_as_needed} active Hydrocodone-Acetaminophen 5-325 MG eCW1 ([facility]) Fluconazole 150 MG Oral Tablet [Diflucan] Diflucan 150 MG Di flucan 150 MG 02/06/2020 12:00:00 AM EST 1.0 {tablet} active Diflucan 150 MG eCW1 ([facility]) Augmentin 875-125 MG UNK 02/06/2020 12:00:00 AM EST 1.0 {tablet } active Augmentin 875-125 MG eCW1 ([facility]) Ibuprofen 800 MG Oral Tablet Ibuprofen 800 MG 02/06/2020 12:00:[address] active Ibuprofen 800 MG eCW1 ([facility]) Fluconazole 150 MG Oral Tablet [Diflucan] Diflucan 150 MG Di flucan 150 MG 02/06/2020 12:00:00 AM EST 1.0 {tablet} active Diflucan 150 MG eCW1 ([facility]) Acetaminophen 325 MG / Hydrocodone Zak trate 5 MG Oral Tablet Hydrocodone- Acetaminophen 5-325 MG Hydrocodone-Acetaminophen 5-325 MG 02/06/2020 12:00:00 AM EST 1.0 {tablet_as_needed} active Hydrocodone-Acetaminophen 5-325 MG eCW1 ([facility]) Ibuprofen 800 MG Oral Tablet Ibuprofen 800 MG 02/06/2020 12:00:[address] active Ibuprofen 800 MG eCW1 ([facility]) Acetaminophen 325 MG / Hydrocodone Zak trate 5 MG Oral Tablet Hydrocodone- Acetaminophen 5-325 MG Hydrocodone-Acetaminophen 5-325 MG 02/06/2020 12:00:00 AM EST 1.0 {tablet_as_needed} active Hydrocodone-Acetaminophen 5-325 MG eCW1 ([facility]) Fluconazole 150 MG Oral Tablet [Diflucan] Diflucan 150 MG Di flucan 150 MG 02/06/2020 12:00:00 AM EST 1.0 {tablet} active Diflucan 150 MG eCW1 ([facility]) Acetaminophen 325 MG / Hydrocodone Zak trate 5 MG Oral Tablet Hydrocodone- Acetaminophen 5-325 MG Hydrocodone-Acetaminophen 5-325 MG 02/06/2020 12:00:00 AM EST 1.0 {tablet_as_needed} active Hydrocodone-Acetaminophen 5-325 MG eCW1 ([facility]) Fluconazole 150 MG Oral Tablet [Diflucan] Diflucan 150 MG Di flucan 150 MG 02/06/2020 12:00:00 AM EST 1.0 {tablet} active Diflucan 150 MG eCW1 ([facility]) Augmentin 875-125 MG UNK 02/06/2020 12:00:00 AM EST 1.0 {tablet } active Augmentin 875-125 MG eCW1 ([facility]) Fluconazole 150 MG Oral Tablet [Diflucan] Diflucan 150 MG Di flucan 150 MG 02/06/2020 12:00:00 AM EST 1.0 {tablet} active Diflucan 150 MG eCW1 ([facility]) Augmentin 875-125 MG UNK 02/06/2020 12:00:00 AM EST 1.0 {tablet } active Augmentin 875-125 MG eCW1 ([facility]) Ibuprofen 800 MG Oral Tablet Ibuprofen 800 MG 02/06/2020 12:00:[address] active Ibuprofen 800 MG eCW1 ([facility]) Augmentin 875-125 MG UNK 02/06/2020 12:00:00 AM EST 1.0 {tablet } active Augmentin 875-125 MG eCW1 ([facility]) Augmentin 875-125 MG UNK 02/06/2020 12:00:00 AM EST 1.0 {tablet } active Augmentin 875-125 MG eCW1 ([facility]) Ibuprofen 800 MG Oral Tablet Ibuprofen 800 MG 02/06/2020 12:00:[address] active Ibuprofen 800 MG eCW1 ([facility]) Augmentin 875-125 MG UNK 02/06/2020 12:00:00 AM EST 1.0 {tablet } active Augmentin 875-125 MG eCW1 ([facility]) Metronidazole 0.0075 MG/MG Vaginal Gel [MetroGel] Metr ogel Vaginal 0.75 % Metrogel Vaginal 0.75 % 08/30/2019 12:00:00 AM EDT active Metronidazole 0.0075 MG/MG Vaginal Gel [MetroGel] NextGen ([facility]) 1.5 mg 07/26/2019 12:00:00 AM EDT tablet 1 TAKE BY MOUTH DIRECTED TAKE BY MOUTH DIRECTED SOLD: 07/26/2019 [facility] 1.5 mg 05/21/2019 12:00:00 AM EST tablet 1 TAKE BY MOUTH DIRECTED TAKE BY MOUTH DIRECTED SOLD: 05/21/2019 [facility] 0.12-0.015 mg/24 hr 05/08/2019 12:00:00 AM EST ring 2 INSERT ONE RING VAGINALLY FOR 3 WEEKS, THEN OUT FOR ONE WEEK INSERT ONE RING VAGINALLY FOR 3 WEEKS, THEN OUT FOR ONE WEEK SOLD: 05/21/2019 [facility] 0.75 % 05/08/2019 12:00:00 AM EST gel 70 INSERT ONE APPLICATORFUL VAGINALLY AT BEDTIME FOR 5 DAYS INSERT ONE APPLICATORFUL VAGINALLY AT BEDTIME FOR 5 DA YS SOLD: 05/08/2019 [facility] Insurance Providers Payer name Policy type / Coverage type Policy ID Covered green party ID Covered green party's relationship to martines Policy [place] Plan Information SELF PAY ONLY SELF PAY UNAVAILABLE UNAVAILA BLE RASTA [id number] SP [id number] Managed Care [place] P [id number] S [id number] Medicaid S [id number] S [id number] [place] O [id number] S [id number] Managed Care - [facility] Community Plan P [id number] S [id number] RASTA [id number] SP [id number] UNHC COMMUNITY PLAN MCDHMO [id number] SP [id number] Managed Care - Community Plan United Healthcare P [id number] S [id number] ANSI-Medicaid [id number] ANSI-Not a Secondary Insurance [id number] MEDICAID [id number] SP [id number] ANSI-Medicaid [id number] ANSI-Not a Secondary Insurance [id number] UNITED HEALTHCARE(MCAID) O [id number] S [id number] UNHC COMMUNITY PLAN MCDHMO [id number] SP [id number] UNHC COMMUNITY PLAN MCDO [id number] SP [id number] UNITED HE[employer]CARE(MCAID) O [id number] S [id number] UNHC COMMUNITY PLAN MCDHMO [id number] SP [id number] UNHC COMMUNITY PLAN MCDHMO [id number] SP [id number] Managed Care - Community Plan [facility] P [id number] S [id number] Medicaid [place] Medigap Part B [id number] Self [id number] [facility] Community Plan Commercial [id number] Self [id number] [place] B Self [facility] Community Plan Commercial Self MEDICAID [id number] SP [id number] UNHC COMMUNITY PLAN MCDHMO [id number] SP [id number] MEDICAID M [id number] S [id number] NCO EPALS O [id number] S [id number] NCO EPALS [id number] SP [id number] [place] O [id number] S [id number] Problems, Conditions, and Diagnoses Code Display Name Description Problem Type Effective Dates Data Source(s) 521.03 DENTAL CARIES EXTENDING INTO PULP DENTAL CARIES EXTEND ING INTO PULP 01/31/2020 02:07:25 PM EST [facility] J45.909 Asthma without status asthmaticus Unspecified as thma, uncomplicated Problem 10/17/2019 12:00:00 AM EDT eCW1 ([facility]) Surgeries/Procedures Procedure Description Date Indications Data Source(s) CVR Technical Applications Scientist.Svc. STI / H 01/17/2020 12:00:00 AM EDT - 01/17/2020 12:00:00 AM EDT NextGen ([facility]) CVR Technical Applications Scientist.Svc. Other 01/17/2020 12:00:00 AM EDT - 2019 12:00:00 AM EDT NextGen ([facility]) CVR Technical Applications Scientist.Svc. Contraceptive 01/17/2020 12 :00:00 AM EDT - 01/17/2020 12:00:00 AM EDT NextGen ([facility]) CVR Med.Svc. Abdominal Palp. 01/17/2020 12:00:00 AM EDT - 01/17/2020 12:00:00 AM EDT NextGen ([facility]) CVR Med.Svc. Breast Exam 01/17/2020 12:0 0:00 AM EDT - 01/17/2020 12:00:00 AM EDT NextGen ([facility]) CVR Med.Svc.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
--- OUTSIDE RECORDS SUMMARY | 2020-04-14 08:02 | CCD ---
Author Author [facility] Organization [facility] Address Unknown Phone Unavailable Care Team Providers Care Business Control Manager Name Role Phone Marhsa Kuo MD Unavailable Unavailable Marsha Kuo MD [...] Ayaan, Marsha Subramanian MD Unavailable Unavailable Ayaan, Marhsa Subramanian MD Unavailable Unavailable Ayaan, Marsha Subramanian [...] Unavailable Unavailable Priti Singh MD Unavailable Unavailable [place], J Amada PA Unavailable Unavailable [place], J Aamda PA Unavailable Unavailable [place], J Amada PA Unavailable Unavailable [place], J Amada PA Unavailable Unavailable [place], J Amada PA Unavailable Unavailable [place], J Amada PA Unavailable Unavailable [place], J Amada PA Unavailable Unavailable [place], J Amada PA Unavailable Unavailable [place], J Amada PA Unavailable Unavailable [place], J Amada PA Unavailable Unavailable [place], J Amada PA Unavailable Unavailable [place], J Amada PA Unavailable Unavailable [place], J Amada PA Unavailable Unavailable [place], J Amada PA Unavailable Unavailable [place], J Amada PA Unavailable Unavailable [place], J Amada PA Unavailable Unavailable [place], J Amada PA Unavailable Unavailable [place], J Amada PA Unavailable Unavailable [place], J Amada PA Unavailable Unavailable [place], J Amada PA Unavailable Unavailable [place], J Amada PA Unavailable Unavailable [place], J Amada PA Unavailable Unavailable DUANA, H NEDA DRY PAN CHARGER Unavailable Unavailable DUANA, H NEDA DRY PAN CHARGER Unavailable Unavailable DUANA, H NEDA DRY PAN CHARGER Unavailable Unavailable DUANA, H NEDA DRY PAN CHARGER Unavailable Unavailable DUANA, H NEDA DRY PAN CHARGER Unavailable Unavailable DUANA, H NEDA DRY PAN CHARGER Unavailable Unavailable DUANA, H NEDA DRY PAN CHARGER Unavailable Unavailable DUANA, H NEDA DRY PAN CHARGER Unavailable Unavailable DUANA, H NEDA DRY PAN CHARGER Unavailable Unavailable DUANA, H NEDA DRY PAN CHARGER Unavailable Unavailable DUANA, H NEDA DRY PAN CHARGER Unavailable Unavailable DUANA, H NEDA DRY PAN CHARGER Unavailable Unavailable DUANA, H NEDA DRY PAN CHARGER Unavailable Unavailable [place]ilwood-Edwards, Tasha CNM Unavailable Unavailab le Deneen-Edwards, Tasha CNM Unavailable Unavailab le [place]ilwood-Edwards, Tasha CNM Unavailable Unavailab le [place]ilwood-Edwards, Tasha CNM Unavailable Unavailab le Deneen-Edwards, Tasha CNM Unavailable Unavailab le Heilwood-Edwards, Tasha CNM Unavailable Unavailab le Re-disclosure Warning [...] is protected by Article 27-F of the [facility] Public Health law. If you continue you may have access to information: Regarding HIV / AIDS; Provided by facilities licensed or operated by the [facility] Office of Mental Health; or Provided by the [facility] Office for People With Developmental Disabilities. If such information is present, then the following [facility] mandated warning applies: This information has been [...] law may result in a fine or prison sentence or both. A general authorization for [...] AM EDT [facility] ([facility]) Unknown Female Diagnosis 04/17/2016 12:00:00 AM EST [facility] ([facility]) Unknown Female Diagnosis 01/31/2016 12:00:00 AM EDT [facility] ([facility]) Unknown Female Diagnosis 01/31/2016 12:00:00 AM EDT [facility] ([facility]) Unknown Female Diagnosis 12/26/2012 12:00:00 AM EDT [facility] ([facility]) Unknown Female Problem [facility] ([facility]) Encounters Encounter Providers Location Date Indications Data Source(s ) [place] [address] [facility] [facility] [address] 02/29/2020 12:00:00 AM EST eCW1 ([facility]) [place] [address] [facility] [address] 02/16/2020 12:00:00 AM EST eCW1 ([facility]) [place] [address] [address] 02/15/2020 12:00:00 AM EST eCW1 ([facility]) Out[place] [address] [facility] [address] 02/06/2020 12:00:00 AM EST eCW1 ([facility]) Outpatient Attender: Ralf Singh MD FP 02/05/2020 03:48:00 PM [facility] Unknown [address] [address] [facility] [address] 02/05/2020 12:00:00 AM EST eCW1 ([facility]) Outpatient Attender: Ralf Singh MD FP 02/01/2020 03:42:01 PM [facility] Outpatient Attender: Ralf Singh MD FP 02/01/2020 03:41:01 PM [facility] Outpatient Attender: Ralf Singh MD FP 02/01/2020 12:02:09 AM [facility] Outpatient Attender: Ralf Singh MD FP 02/01/2020 12:00:09 AM [facility] Outpatient Attender: Ralf Singh MD FP 01/31/2020 02:08:01 PM [facility] Outpatient Attender: Ralf Singh MD FP 01/31/2020 12:14:01 PM [facility] Outpatient Attender: Ralf Singh MD FP 01/31/2020 10:02:00 AM [facility] Outpatient Attender: Ralf Singh MD FP 01/31/2020 08:51:01 AM [facility] OutpatientPREV VISIT, EST, AGE 18-39 Attender: Tasha Pandey CNM PPNCNY [place] 01/17/2020 12:50:00 PM EDT - 01/17/2020 12:50:00 PM ED T Encntr for carbon brushes assembler 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) (routine) w/o abn findingsOther sex counselingHuman immunodeficiency virus [HIV] counselingEncounter for oth general cnsl and advice on contraceptionEncounter for test, result negativeEncounter for screening for human immunodeficiency virusEncntr screen for infections w sexl mode of transmiss [facility] ([facility]) Encntr for carbon brushes assembler 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) (routine) w/o abn findings Other sex counseling Human immunodeficiency virus [HIV] couns eling Encounter for oth general cnsl and advic e on contraception Encounter for test, result neg ative Encounter for screening for human immuno deficiency virus Encntr screen for infections w sexl mode of transmiss Outpatient Attender: Ralf ALFARO 11/23/2019 11:02:01 AM EDT [facility] Attender: Marilynn Kuo MD MAGALY [place] 02:41:00 PM EDT - 10/20/2019 02:41:00 PM EDT [facility] ([facility]) [place] [address] [facility] [address] [address] 10/17/2019 12:00:00 AM EDT eCW1 ([facility]) Outpatient Attender: Ralf ALFARO 09/05/2019 07:47:44 PM EDT [facility] OutpatientOFFICE VISIT, EST Attender: Amada christian 08/30/2019 03:50:00 PM EDT - 08/30/2019 03:50:00 PM EDT Acute vaginitisEncounter for oth general cnsl and advice on contraceptionEncntr screen for infections w sexl mode of transmissEncounter for screening for human immunodeficiency virusHuman immunodeficiency virus [HIV] counselingOther sex counselingEncounter for test, result negative [facility] ([facility]) Acute vaginitis Encounter for oth general cnsl and advic e on contraception Encntr screen for infections w sexl mode of transmiss Encounter for screening for human immuno deficiency virus Human immunodeficiency virus [HIV] couns eling Other sex counseling Encounter for test, result neg ative Outpatient Attender: Ralf Singh MD FP 06/13/2019 03:19:00 PM EDT [facility] Outpatient Attender: Ralf Singh MD FP 06/13/2019 03:15:01 PM EDT [facility] Attender: Amada GALEAS PPMAGALY Garza 03/29 02:15:00 PM EST - 04/13/2019 02:15:00 [...] test, result neg ative Attender: NEDA CHAVIS [place] 05/2018 09:30:00 AM EST - 02/28/2019 09:30:00 AM EST Candidiasis of vulva and vaginaEncounter for prescription of emergency contraceptionEncounter for oth general cnsl and advice on contraceptionOther sex counselingHuman immunodeficiency virus [HIV] co unselingHigh risk heterosexual behaviorEncntr screen for infections w sexl mode of transmissEncounter for test, result negative [facility]) Candidiasis of vulva and vagina Encounter for [...] 1.0 {tablet_as_needed} active Hydrocodone-Acetaminophen 5-325 MG eCW1 ([facility]) Acetaminophen 325 MG / Hydrocodone Zak trate 5 MG Oral Tablet Hydrocodone- Acetaminophen 5-325 MG Hydrocodone-Acetaminophen 5-325 MG 02/06/2020 12:00:00 AM EST 1.0 {tablet_as_needed} active Hydrocodone-Acetaminophen 5-325 MG eCW1 ([facility]) Ibuprofen 800 MG Oral Tablet Ibuprofen 800 [...] 1.0 {tablet} active Diflucan 150 MG eCW1 ([facility]) Acetaminophen 325 MG / Hydrocodone Zak trate 5 MG Oral Tablet Hydrocodone- Acetaminophen 5-325 MG Hydrocodone-Acetaminophen 5-325 MG 02/06/2020 12:00:00 AM EST 1.0 {tablet_as_needed} active Hydrocodone-Acetaminophen 5-325 MG eCW1 ([facility]) Fluconazole 150 MG Oral Tablet [Diflucan] Diflucan 150 MG Di flucan 150 MG 02/06/2020 12:00:00 AM EST 1.0 {tablet} active Diflucan 150 MG eCW1 ([facility]) Augmentin 875-125 MG UNK 02/06/2020 12:00:00 AM EST 1.0 {tablet } active Augmentin 875-125 MG eCW1 ([facility]) Ibuprofen 800 MG Oral Tablet Ibuprofen 800 MG 02/06/2020 12:00:[address] active Ibuprofen 800 MG eCW1 ([facility]) Fluconazole 150 MG Oral Tablet [Diflucan] Diflucan 150 MG Di flucan 150 MG 02/06/2020 12:00:00 AM EST 1.0 {tablet} active Diflucan 150 MG eCW1 ([facility]) Acetaminophen 325 MG / Hydrocodone Zak trate 5 MG Oral Tablet Hydrocodone- Acetaminophen 5-325 MG Hydrocodone-Acetaminophen 5-325 MG 02/06/2020 12:00:00 AM EST 1.0 {tablet_as_needed} active Hydrocodone-Acetaminophen 5-325 MG eCW1 ([facility]) Ibuprofen 800 MG Oral Tablet Ibuprofen 800 MG 02/06/2020 12:00:[address] active Ibuprofen 800 MG eCW1 ([facility]) Acetaminophen 325 MG / Hydrocodone Zak trate 5 MG Oral Tablet Hydrocodone- Acetaminophen 5-325 MG Hydrocodone-Acetaminophen 5-325 MG 02/06/2020 12:00:00 AM EST 1.0 {tablet_as_needed} active Hydrocodone-Acetaminophen 5-325 MG eCW1 ([facility]) Fluconazole 150 MG Oral Tablet [Diflucan] Diflucan 150 MG Di flucan 150 MG 02/06/2020 12:00:00 AM EST 1.0 {tablet} active Diflucan 150 MG eCW1 ([facility]) Acetaminophen 325 MG / Hydrocodone Zak trate 5 MG Oral Tablet Hydrocodone- Acetaminophen 5-325 MG Hydrocodone-Acetaminophen 5-325 MG 02/06/2020 12:00:00 AM EST 1.0 {tablet_as_needed} active Hydrocodone-Acetaminophen 5-325 MG eCW1 ([facility]) Fluconazole 150 MG Oral Tablet [Diflucan] Diflucan 150 MG Di flucan 150 MG 02/06/2020 12:00:00 AM EST 1.0 {tablet} active Diflucan 150 MG eCW1 ([facility]) Augmentin 875-125 MG UNK 02/06/2020 12:00:00 AM EST 1.0 {tablet } active Augmentin 875-125 MG eCW1 ([facility]) Fluconazole 150 MG Oral Tablet [Diflucan] Diflucan 150 MG Di flucan 150 MG 02/06/2020 12:00:00 AM EST 1.0 {tablet} active Diflucan 150 MG eCW1 ([facility]) Augmentin 875-125 MG UNK 02/06/2020 12:00:00 AM EST 1.0 {tablet } active Augmentin 875-125 MG eCW1 ([facility]) Ibuprofen 800 MG Oral Tablet Ibuprofen 800 MG 02/06/2020 12:00:[address] active Ibuprofen 800 MG eCW1 ([facility]) Augmentin 875-125 MG UNK 02/06/2020 12:00:00 AM EST 1.0 {tablet } active Augmentin 875-125 MG eCW1 ([facility]) Augmentin 875-125 MG UNK 02/06/2020 12:00:00 AM EST 1.0 {tablet } active Augmentin 875-125 MG eCW1 ([facility]) Ibuprofen 800 MG Oral Tablet Ibuprofen 800 MG 02/06/2020 12:00:[address] active Ibuprofen 800 MG eCW1 ([facility]) Augmentin 875-125 MG UNK 02/06/2020 12:00:00 AM EST 1.0 {tablet } active Augmentin 875-125 MG eCW1 ([facility]) Metronidazole 0.0075 MG/MG Vaginal Gel [MetroGel] Metr ogel Vaginal 0.75 % Metrogel Vaginal 0.75 % 08/30/2019 12:00:00 AM EDT active Metronidazole 0.0075 MG/MG Vaginal Gel [MetroGel] [facility] ([facility]) 1.5 mg 07/26/2019 12:00:00 AM EDT [...] type / Coverage type Policy ID Covered republican ID Covered republican's relationship to martines Policy Martines Plan Information SELF PAY ONLY [id number] SP [id number] SELF PAY UNAVAILABLE UNAVAILA BLE RASTA [id number] SP [id number] Managed Care [place] P [id number] S [id number] Medicaid S [id number] S [id number] [place] O [id number] S [id number] Managed Care - [facility] Community Plan P [id number] S [id number] RASTA [id number] SP [id number] UNHC COMMUNITY PLAN MCDHMO [id number] SP [id number] Managed Care - Community Plan [facility] P [id number] S [id number] ANSI-Medicaid [id number] ANSI-Not a Secondary Insurance [id number] MEDICAID [id number] SP [id number] ANSI-Medicaid [id number] ANSI-Not a Secondary Insurance [id number] UNITED HEALTHCARE(MCAID) O [id number] S [id number] UNHC COMMUNITY PLAN MCDHMO [id number] SP [id number] UNHC COMMUNITY PLAN MCDHMO [id number] SP [id number] UNITED HE[employer]CARE(MCAID) O [id number] S [id number] UNHC COMMUNITY PLAN MCDHMO [id number] SP [id number] UNHC COMMUNITY PLAN MCDHMO [id number] SP [id number] Managed Care - Community Plan [facility] P [id number] S [id number] [place] Medig[place] Part B [id number] Self [id number] [facility] Community Plan Commercial [id number] Self [id number] [place]ig[place] Part B Self [facility] Community Plan Commercial Self MEDICAID [id number] SP [id number] UNHC COMMUNITY PLAN MCDO [id number] SP [id number] MEDICAID M [id number] S [id number] NCO EPALS O [id number] S [id number] NCO EPALS [id number] SP [id number] [place] O [id number] S [id number] Problems, Conditions, and Diagnoses Code Display Name Description Problem Type Effective Dates Data Source(s) 521.03 DENTAL CARIES EXTENDING INTO PULP DENTAL CARIES EXTEND ING INTO PULP 01/31/2020 02:07:25 PM EST [facility] J45.909 Asthma without status asthmaticus Unspecified as thma, uncomplicated Problem 10/17/2019 12:00:00 AM EDT eCW1 ([facility]) Surgeries/Procedures Procedure Description Date Indications Data Source(s) CVR Lockstitch Shoulder Joiner.Svc. STI / H 01/17/2020 12:00:00 AM EDT - 01/17/2020 12:00:00 AM EDT [facility] ([facility]) CVR Lockstitch Shoulder Joiner.Svc. Other 01/17/2020 12:00:00 AM EDT - 2019 12:00:00 AM EDT [facility] ([facility]) CVR Lockstitch Shoulder Joiner.Svc. Contraceptive 01/17/2020 12 :00:00 AM EDT - 01/17/2020 12:00:00 AM EDT [facility] ([facility]) CVR Med.Svc. Abdominal Palp. 01/17/2020 12:00:00 AM EDT - 01/17/2020 12:00:00 AM EDT [facility] ([facility]) CVR Med.Svc. Breast Exam 01/17/2020 12:0 0:00 AM EDT - 01/17/2020 12:00:00 AM EDT [facility] ([facility]) CVR Med.Svc. Heart/Lung Ausc. 01/17/2020 12:00:00 AM EDT - 01/17/2020 12:00:00 AM EDT [facility] ([facility]) CVR Med.Svc. Thyroid Palp. 01/17/2020 12 :00:00 AM EDT - 01/17/2020 12:00:00 AM EDT [facility] ([facility]) CVR Med.Svc. Height/Weight 01/17/2020 12 :00:00 AM EDT - 01/17/2020 12:00:00 AM EDT [facility] ([facility]) CVR Blood Pressure 01/17/2020 12:00:00 AM EDT - 2019 12:00:00 AM EDT [facility] ([facility]) N.GONORRHOEAE, Pharyngeal 01/17/2020 12: 00:00 AM EDT - 01/17/2020 12:00:00 AM EDT [facility] ([facility]) CHYLMD TRACH, Pharyngeal 01/17/2020 12:0 0:00 AM EDT - 01/17/2020 12:00:00 AM EDT [facility] ([facility]) CYTOPATH, C/V, THIN LAYER 01/17/2020 12: 00:00 AM EDT - 01/17/2020 12:00:00 AM EDT [facility] ([facility]) SYPHILLIS BLOOD SEROLOGY, QUALITATIVE 12:00:00 AM EDT - 01/17/2020 12:00:00 AM EDT [facility] ([facility]) HTLV/HIV CONFIRMATORY TEST 01/17/2020 12 :00:00 AM EDT - 01/17/2020 12:00:00 AM EDT [facility] ([facility]) HEPATITIS C AB TEST 01/17/2020 12:00:00 AM EDT - 01/16 12:00:00 AM EDT [facility] ([facility]) N.GONORRHOEAE, SWAB 01/17/2020 12:00:00 AM EDT - 01/16 12:00:00 AM EDT [facility] ([facility]) CHYLMD TRACH, SWAB 01/17/2020 12:00:00 AM EDT - 2019 12:00:00 AM EDT [facility] ([facility]) PREV VISIT, EST, AGE 18-39 01/17/2020 12 :00:00 AM EDT - 01/17/2020 12:00:00 AM EDT [facility] ([facility]) URINE TEST 01/17/2020 12:00:00 AM EDT - 01/17/2020 12:00:00 AM EDT [facility] ([facility]) CVR Lockstitch Shoulder Joiner.Svc. STI / H 08/30/2019 12:00:00 AM EDT - 08/30/2019 12:00:00 AM EDT [facility] ([facility]) CVR Lockstitch Shoulder Joiner.Svc. Other 08/30/2019 12:00:00 AM EDT - 2019 12:00:00 AM EDT [facility] ([facility]) CVR Med.Svc. Vaginitis Rx 08/30/2019 12: 00:00 AM EDT - 08/30/2019 12:00:00 AM EDT [facility] ([facility]) CVR Med.Svc. Height/Weight 08/30/2019 12 :00:00 AM EDT - 08/30/2019 12:00:00 AM EDT [facility] ([facility]) CVR Blood Pressure 08/30/2019 12:00:00 AM EDT - 2019 12:00:00 AM EDT [facility] ([facility]) CVR Med.Svc. Other 08/30/2019 12:00:00 AM EDT - 2019 12:00:00 AM EDT [facility] ([facility]) SMEAR, WET MOUNT, SALINE/INK 08/30/2019 12:00:00 AM EDT - 08/30/2019 12:00:00 AM EDT [facility] ([facility]) ASSAY OF BODY FLUID ACIDITY 08/30/2019 1 2:00:00 AM EDT - 08/30/2019 12:00:00 AM EDT [facility] ([facility]) OFFICE VISIT, EST 08/30/2019 12:00:00 AM EDT - 020 12:00:00 AM EDT [facility] ([facility]) N.GONORRHOEAE, Pharyngeal 08/30/2019 12: 00:00 AM EDT - 08/30/2019 12:00:00 AM EDT [facility] ([facility]) CHYLMD TRACH, Pharyngeal 08/30/2019 12:0 0:00 AM EDT - 08/30/2019 12:00:00 AM EDT [facility] ([facility]) SYPHILLIS BLOOD SEROLOGY, QUALITATIVE 12:00:00 AM EDT - 08/30/2019 12:00:00 AM EDT [facility] ([facility]) HTLV/HIV CONFIRMATORY TEST 08/30/2019 12 :00:00 AM EDT - 08/30/2019 12:00:00 AM EDT [facility] ([facility]) HEPATITIS C AB TEST 08/30/2019 12:00:00 AM EDT - 08/29 12:00:00 AM EDT [facility] ([facility]) N.GONORRHOEAE, SWAB 08/30/2019 12:00:00 AM EDT - 08/29 12:00:00 AM EDT [facility] ([facility]) CHYLMD TRACH, SWAB 08/30/2019 12:00:00 AM EDT - 2019 12:00:00 AM EDT [facility] ([facility]) URINE TEST 08/30/2019 12:00:00 AM EDT - 08/30/2019 12:00:00 AM EDT [facility] ([facility]) Results ID Date Data Source [id number] 02/15/2020 12:00:00 AM EST [facility] Name Value Range Interpretation Code Description Data Kelsey rce(s) Supporting Document(s) 2019-nCoV RNA XXX NATALIA+probe-Imp [facility] This lab was ordered by [facility] and reported by [employer]. ID Date Data Source [id number] 01/31/2020 08:57:30 AM [facility] Vital SignsBlood Pressure: 121/78 Patient History Medical History:AsthmaDepressionRheumatoid arthritisSurgical History:Right FootFamily History:Hypertension (Mother)Bipolar disorder (Mother)Rheumatoid arthritis (Mother)Diabetes (Maternal Grandmother)Social/Personal History: Smoking Status: current some day smokerCurrent Problems: Streptococcal pharyngitis (ICD10- J02.0)Tremor (ICD-781.0) (BOX34-M12.1)Ankle joint pain (ICD-719.47) (ICD10- M25.579)Lyme disease (ICD-088.81) (HGP92-G80.20)Renal insufficiency, mild (ICD- 585.2) (RUK48-D94.9)Otitis media - right (ICD-382.9) (RJQ20-Z77.91)Viral upper respiratory tract infection (ICD-465.9) (LYZ13-D82.9)Other Specified Depressive Disorder (ICD-311) (GNJ26-G67.9)General Adult Medical Exam WITH Abnormal Findings (over 18) (ICD-V70.0) (YUM70-B63.01)Sleep apnea (ICD-780.57) (ICD10- G47.30)Asthma NOS (ICD-493.90) (PXT97-T07.909)ANXIETY DISORDER, GENERALIZED (ICD-300.02) (TUL83-P00.1)Depression, major, moderate (ICD-296.22) (ICD10- F32.1)Joint pain, hand (ICD-719.44) (LTO90-X34.643)Current Medications: AMOXICILLIN 500 MG ORAL CAPSULE (AMOXICILLIN) [...] by Coleen Wang RDH) T - (D2750) [place], 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 CC: My jaw has been hurting for about 3 weeks.Reviewed Xrays. OCS: WNL, IO/ EO completed, No significant hard findings upon clinical exam.Pt went to [facility] and they said that she had fractures [...] elected not to do surgery. OS in [place] stated that the jaw healed correctly.No evidence [...] setting, N95, surgical mask, hair covering, gown. [facility] with patient. Pt. is in severe pain [...] and holding her jaw. NV- Comp exam/prophy/fillingWatson Coleen ARNOLD by [place] (01/31/2020 11:00 AM): Tooth Notes and Watches: Medication Changes:Removed:DIFLUCAN 150 MG ORAL TABLET-One po times one. may repeat in one week if symptoms persist. Name Value Range Interpretation Code Description Data Kelsey rce(s) Supporting Document(s) ID Date Data Source [id number] 01/17/2020 01:34:30 PM EDT [facility] ([facility]) Name Value Range Interpretation Code Description Data Kelsey rce(s) Supporting Document(s) NegativeLot: [id number]: 02/25/2021 High Sensitivity Urine Test [facility] ([facility]) ID Date Data Source [id number] 01/17/2020 12:00:00 AM EDT [facility] ([facility]) Name Value Range Interpretation Code Description Data Kelsey rce(s) Supporting Document(s) NENITA Non-reactive Normal (applies to non-numeric results) Syphilis [facility] ([facility]) Infection with T. pallidum (cause of syp hilis) unlikely (earlyprimary syphilis cannot be excluded). Requestadditional testing if syphilis is clinically suspected.NENITA: Chemiluminescence immunoassay: No Performed by: DANIEL ([id number]) ID Date Data Source [id number] 01/17/2020 12:00:00 AM EDT [facility] ([facility]) Name Value Range Interpretation Code Description Data Kelsey rce(s) Supporting Document(s) Negative Normal (applies to non-numer ic results) [place] Amplified CT/GC Combo - GC [facility] ([facility]) ID Date Data Source [id number] 01/17/2020 12:00:00 AM EDT [facility] ([facility]) Name Value Range Interpretation Code Description Data Kelsey rce(s) Supporting Document(s) Negative Normal (applies to non-numer ic results) [place] Amplified CT/GC Combo - CT [facility] ([facility]) ID Date Data Source [id number] 01/17/2020 12:00:00 AM EDT [facility] ([facility]) Name Value Range Interpretation Code Description Data Kelsey rce(s) Supporting Document(s) HIV-1/2 Non-reactive Normal (applies to n on-numeric results) HIV-1/HIV-2 Ag/Ab NextGen ([facility]) The HIV Antigen (Ag)/Antibody (Ab) Combo ChemiluminescentMicroparticle Immunoassay (CMIA) is used for the simultaneousdetection of both the HIV-1 p24 Antigen and Antibodyto HIV-1 and for the Antibody to HIV-2. Performed by: DANIEL ([id number]) ID Date Data Source [id number] 01/17/2020 12:00:00 AM EDT NextGen ([facility]) Name Value Range Interpretation Code Description Data Kelsey rce(s) Supporting Document(s) Negative Normal (applies to non-numeric resul ts) Thin Prep/HPV Combo - HPV NextGen ([facility]) HPV: 16 High Risk : Negative HPV: [...] risk HPV types.: No Performed by: DANIEL ([id number]) ID Date Data Source [id number] 01/17/2020 12:00:00 AM EDT NextGen ([facility]) Name Value Range Interpretation Code Description Data Kelsey rce(s) Supporting Document(s) NIL Normal (applies to non-numeric resul ts) ThinPrep/HPV Combo-Thin Prep NextGen ([facility]) SPECIMEN ADEQUACY: Satisfactory for eval uationEndocervical/transformation zone component present.INTERPRETATION:Negative for Intraepithelial Lesion or Malignancy = NoCollected by = Bela Leon NPPafe Reason for Exam = ROUTINEPrevious Abnormal Dx = ASC-USHormone Rx = NoPost = NoPost Menopause = NoPost Hysterectomy = NoPrevious abnormal biopsy = NoAbnormal bleeding = NoFamily history of carbon brushes assembler cancer = NoCervix bleeds on contact = NoAnatomical Site = ENDOCERVIXINTERPRETATION VERIFIED & ELECTRONICALLY SIGNED BY:MELISSA Kruger(ASCP) ILJThe Pap test is a screening technique to assist in the detection ofpremalignant and malignant lesions of the cervix. It is not a diagnosticprocedure. False negative and false positive results can occur.Diagnosis of any lesion should be made by biopsy, unlesscontraindicated.

Performed by:
CDD ([id number])

ID Date Data Source RHEUMATOID FACTOR QUANT 10/17/2019 12:00:00 AM EDT eCW1 ([facility]) Name Value Range Interpretation Code Description Data Kelsey rce(s) Supporting Document(s) 16.8 <15.0 eCW1 ([facility]) ID Date Data Source VITAMIN D 25-HYDROXY 10/17/2019 12:00:00 AM EDT eCW1 ([facility]) Name Value Range Interpretation Code Description Data Kelsey rce(s) Supporting Document(s) 18.1 30.0-100.0 eCW1 ([facility]) ID Date Data Source FREE T4 & TSH PANEL 10/17/2019 12:00:00 AM EDT eCW1 ([facility]) Name Value Range Interpretation Code Description Data Kelsey rce(s) Supporting Document(s) 0.839 0.358-3.740 eCW1 ([facility]) 0.97 0.76-1.46 eCW1 ([facility]) ID Date Data Source LIPID PANEL (CARDIAC RISK) 10/17/2019 12:00:00 AM EDT eCW1 ( [facility]) Name Value Range Interpretation Code Description Data Kelsey rce(s) Supporting Document(s) Cholesterol in LDL [Mass/volume] in Serum or Plasma by calculation 64 <100 eCW1 ([facility]) Triglyceride [Mass/volume] in Serum or Plasma by calculation 48 <150 eCW1 ([facility]) Cholesterol [Moles/volume] in Serum or Plasma 126 <200 eCW1 ([facility]) Cholesterol in HDL [Moles/volume] in Serum or Plasma 52 >40 eCW1 ([facility]) 2.423 <5 eCW1 ([facility]) 74 eCW1 ([facility]) ID Date Data Source ERYTHROCYTE SEDIMENTATION RATE 10/17/2019 12:00:00 AM EDT eC W1 ([facility]) Name Value Range Interpretation Code Description Data Kelsey rce(s) Supporting Document(s) 10 0-20 eCW1 ([facility]) ID Date Data Source LYME DISEASE SCRN WITH CONFIRM 10/17/2019 12:00:00 AM EDT eC W1 ([facility]) Name Value Range Interpretation Code Description Data Kelsey rce(s) Supporting Document(s) See Separate Report eCW1 ([facility]) ID Date Data Source CYCLIC CITRULLINATED PEPTIDE 10/17/2019 12:00:00 AM EDT eCW1 ([facility]) Name Value Range Interpretation Code Description Data Kelsey rce(s) Supporting Document(s) See Separate Report eCW1 ([facility]) ID Date Data Source C REACTIVE PROTEIN QUANTITATIV (At [facility]) 10/17/2019 12:00 :00 AM EDT eCW1 ([facility]) Name Value Range Interpretation Code Description Data Kelsey rce(s) Supporting Document(s) < 0.30 0.00-0.30 eCW1 ([facility]) ID Date Data Source CBC - Complete Blood Count 10/17/2019 12:00:00 AM EDT eCW1 ( [facility]) Name Value Range Interpretation Code Description Data Kelsey rce(s) Supporting Document(s) 4.16 4.00-5.40 eCW1 ([facility]) 13.0 12.0-15.5 eCW1 ([facility]) 7.0 4.0-10.0 eCW1 ([facility]) 95.7 80.0-96.0 eCW1 ([facility]) 12.5 11.5-14.5 eCW1 ([facility]) 39.8 36.0-47.0 eCW1 ([facility]) 32.7 32.0-36.5 eCW1 ([facility]) 31.3 27.0-33.0 eCW1 ([facility]) 308 150-450 eCW1 ([facility]) ID Date Data Source LAKESHA 10/17/2019 12:00:00 AM EDT eCW1 ([facility]) Name Value Range Interpretation Code Description Data Kelsey rce(s) Supporting Document(s) See Separate Report eCW1 ([facility]) See Separate Report eCW1 ([facility]) See Separate Report eCW1 ([facility]) See Separate Report eCW1 ([facility]) See Separate Report eCW1 ([facility]) See Separate Report eCW1 ([facility]) See Separate Report eCW1 ([facility]) ID Date Data Source [id number] 08/30/2019 05:08:10 PM EDT NextGen ([facility]) Name Value Range Interpretation Code Description Data Kelsey rce(s) Supporting Document(s) Hyphae/Isabel: noBudding y east: noTrich: noClue cells: yes (>=20%)WBCs: yes (few)Amine/Whiff test: positivepH: 6.0 [place] NextGen ([facility]) ID Date Data Source [id number] 08/30/2019 05:07:53 PM EDT NextGen ([facility]) Name Value Range Interpretation Code Description Data Kelsey rce(s) Supporting Document(s) pH: 6.0. Vaginal pH NextGen ([facility]) ID Date Data Source [id number] 08/30/2019 04:39:24 PM EDT NextGen ([facility]) Name Value Range Interpretation Code Description Data Kelsey rce(s) Supporting Document(s) NegativeLot: [id number]: 01/26/2021 High Sensitivity Urine Test NextGen ([facility]) Procedure Social History Code Duration Value Status Description Data Source(s ) Smoking 02/06/2020 12:00:00 AM EST Former Smoker completed Former Smoker eCW1 ([facility]) Smoking 02/06/2020 12:00:00 AM EST Former Smoker completed Former Smoker eCW1 ([facility]) Smoking 02/06/2020 12:00:00 AM EST Former Smoker completed Former Smoker eCW1 ([facility]) Smoking 02/06/2020 12:00:00 AM EST Former Smoker completed Former Smoker eCW1 ([facility]) Smoking 02/06/2020 12:00:00 AM EST Former Smoker completed Former Smoker eCW1 ([facility]) Smoking 02/06/2020 12:00:00 AM EST Former Smoker completed Former Smoker eCW1 ([facility]) Smoking 01/17/2020 12:00:00 AM EDT Never smoker completed Never s moker NextGen ([facility]) Vital Signs ID Date Data Source UNK Name Value Range Interpretation Code Description Data Source(s) Diastolic blood pressure 80 mm[Hg] 80 mm[Hg] eCW1 ([facility]) Systolic blood pressure 124 mm[Hg] 124 mm[Hg] e CW1 ([facility]) Body temperature 98.3 [degF] 98.3 [degF] eCW1 ( [facility]) Respiratory rate 18 /min 18 /min eCW1 ([facility]) Heart rate 104 /min 104 /min eCW1 ([facility]) Body mass index (BMI) [Ratio] 27.68 kg/m2 27.68 kg/m2 W1 ([facility]) Body height 67.5 [in_i] 67.5 [in_i] eCW1 ([facility]) Body weight 179.4 [lb_av] 179.4 [lb_av] eCW1 ([facility]) Body mass index (BMI) [Ratio] 26.67 kg/m2 Overweight 26.67 kg/m2 NextGen ([facility]) Diastolic blood pressure 62 mm[Hg] 62 mm[Hg] NextGen ([facility]) Systolic blood pressure 122 mm[Hg] 122 mm[Hg] N extGen ([facility]) Body weight 79.560 kg 79.560 kg NextGen ([facility]) Body height 172.72 cm 172.72 cm NextGen ([facility]) Diastolic blood pressure 82 mm[Hg] 82 mm[Hg] eCW1 ([facility]) Systolic blood pressure 120 mm[Hg] 120 mm[Hg] e CW1 ([facility]) Body temperature 97.9 [degF] 97.9 [degF] eCW1 ( [facility]) Respiratory rate 18 /min 18 /min eCW1 ([facility]) Heart rate 100 /min 100 /min eCW1 ([facility]) Body mass index (BMI) [Ratio] 28.27 kg/m2 28.27 kg/m2 W1 ([facility]) Body height 67.5 [in_i] 67.5 [in_i] eCW1 ([facility]) Body weight 183.2 [lb_av] 183.2 [lb_av] eCW1 ([facility]) Body mass index (BMI) [Ratio] 26.46 kg/m2 Overweight 26.46 kg/m2 NextGen ([facility]) Heart rate 89 /min 89 /min NextGen ([facility]) Diastolic blood pressure 79 mm[Hg] 79 mm[Hg] NextGen ([facility]) Systolic blood pressure 126 mm[Hg] 126 mm[Hg] N extGen ([facility]) Body weight 78.925 kg 78.925 kg NextGen ([facility]) Body height 172.72 cm 172.72 cm NextGen ([facility]) Patient Treatment Plan of Care Planned Activity Planned Date Details Description Data Source (s) Augmentin 875-125 MG 02/06/2020 12:00:00 AM EST eCW1 ([facility]) Ibuprofen 800 MG Oral Tablet 02/06/2020 12:00:00 AM EST eCW1 ([facility]) Acetaminophen 325 MG / Hydrocodone Bitartrate 5 MG Ora l Tablet 02/06/2020 12:00:00 AM EST eCW1 ([facility]) Fluconazole 150 MG Oral Tablet [Diflucan] 02/06/2020 12:00:00 AM ES T eCW1 ([facility]) Augmentin 875-125 MG 02/06/2020 12:00:00 AM EST eCW1 ([facility]) Ibuprofen 800 MG Oral Tablet 02/06/2020 12:00:00 AM EST eCW1 ([facility]) Acetaminophen 325 MG / Hydrocodone Bitartrate 5 MG Ora l Tablet 02/06/2020 12:00:00 AM EST eCW1 ([facility]) Fluconazole 150 MG Oral Tablet [Diflucan] 02/06/2020 12:00:00 AM ES T eCW1 ([facility]) Augmentin 875-125 MG 02/06/2020 12:00:00 AM EST eCW1 ([facility]) Ibuprofen 800 MG Oral Tablet 02/06/2020 12:00:00 AM EST eCW1 ([facility]) Acetaminophen 325 MG / Hydrocodone Bitartrate 5 MG Ora l Tablet 02/06/2020 12:00:00 AM EST eCW1 ([facility]) Fluconazole 150 MG Oral Tablet [Diflucan] 02/06/2020 12:00:00 AM ES T eCW1 ([facility]) Augmentin 875-125 MG 02/06/2020 12:00:00 AM EST eCW1 ([facility]) Ibuprofen 800 MG Oral Tablet 02/06/2020 12:00:00 AM EST eCW1 ([facility]) Acetaminophen 325 MG / Hydrocodone Bitartrate 5 MG Ora l Tablet 02/06/2020 12:00:00 AM EST eCW1 ([facility]) Fluconazole 150 MG Oral Tablet [Diflucan] 02/06/2020 12:00:00 AM ES T eCW1 ([facility]) Augmentin 875-125 MG 02/06/2020 12:00:00 AM EST eCW1 ([facility]) Ibuprofen 800 MG Oral Tablet 02/06/2020 12:00:00 AM EST eCW1 ([facility]) Acetaminophen 325 MG / Hydrocodone Bitartrate 5 MG Ora l Tablet 02/06/2020 12:00:00 AM EST eCW1 ([facility]) Fluconazole 150 MG Oral Tablet [Diflucan] 02/06/2020 12:00:00 AM ES T eCW1 ([facility]) Augmentin 875-125 MG 02/06/2020 12:00:00 AM EST eCW1 ([facility]) Ibuprofen 800 MG Oral Tablet 02/06/2020 12:00:00 AM EST eCW1 ([facility]) Acetaminophen 325 MG / Hydrocodone Bitartrate 5 MG Ora l Tablet 02/06/2020 12:00:00 AM EST eCW1 ([facility]) Fluconazole 150 MG Oral Tablet [Diflucan] 02/06/2020 12:00:00 AM ES T eCW1 ([facility]) Metronidazole 0.0075 MG/MG Vaginal Gel [MetroGel] 08/30/2019 12: 00:00 AM EDT NextGen ([facility])
== END 2020-04-14 07:56 | disposition left against medical advice (07) ==
LOC: M ED 07:32
DX: R10.31 Right lower quadrant pain (principal); Z53.9 Procedure and treatment not carried out, unspecified reason; G43.909 Migraine, unspecified, not intractable, without status migrainosus

== ENCOUNTER → 2020-06-18 | Outpatient (CLI) | payer OTHER ==
--- NOTE | 2020-06-18 18:11 | REP ---
INDICATION: ENCOUNTER FOR TEST,DATING AND VIABILTY. COMPARISON: None. TECHNIQUE: Transabdominal and transvaginal scanning. FINDINGS: Transabdominal and transvaginal scanning demonstrates a single living intrauterine gestation in a free-floating lie. There is a gestational sac in the uterus with the yolk sac and embryonic pole. The embryonic pole measures 3 mm in crown-rump length consistent with a 5 week 6 day gestational age estimate. A 1.5 cm sac size diameter corresponds with 5 weeks 5 days. heart rate is recorded at 124 beats per minute. There is a 1.5 x 1.1 x 2.8 cm hypoechoic collection adjacent to the sac consistent with subchorionic hemorrhage. IMPRESSION: Findings consistent with a viable single intrauterine gestation at 5 weeks 6 days by crown-rump length. NAY by sonography February 12, 2021. A 2.8 x 1.5 x 1.1 cm subchorionic hemorrhage appears to be present. <Electronically signed by Josr Mendez > 06/18/20 [id number]
== END ==
LOC: M RAD 15:39
PROVIDERS: ATTEND Physician Assistant Medical
DX: Z32.01 Encounter for pregnancy test, result positive (principal); Z3A.01 Less than 8 weeks gestation of pregnancy

== ENCOUNTER 2020-08-14 14:27 | Inpatient (IN) | payer OTHER ==
[~2020-08-14] VITALS: Ht 172.7 cm; Wt 83.8 kg
[2020-08-14] MEDS ORDERED: ACET-910 PO (15:00)
[2020-08-14] MEDS ORDERED: PANTOPRAZOLE 40MG VIAL (C9113 PER 1) IV ONE (15:10)
[2020-08-14] MEDS ORDERED: ONDANSETRON 4MG/2ML VIAL IV ONE (15:10)
[2020-08-14] MEDS ORDERED: ACETAMINOPHEN 325 MG TAB PO ONE (15:10)
[2020-08-14] MEDS ORDERED: NS 1,000 ML IV ONE (15:10)
[2020-08-14] MEDS: COMBIVENT RESPIMAT 100-20MCG INHALER 4GM INH SCH ×3 (15:26→15:55)
[2020-08-14 15:37] LABS: HEMATOCRIT 45.9 % (36.0-47.0); HEMOGLOBIN 15.3 g/dl (12.0-15.5); MEAN CORPUSCULAR HEMOGLOBIN 31.8 pg (27.0-33.0); MEAN CORPUSCULAR HGB CONC 33.3 g/dl (32.0-36.5); MEAN CORPUSCULAR VOLUME 95.4 fl (80.0-96.0); RED BLOOD COUNT 4.81 10^6/uL (4.00-5.40); WHITE BLOOD COUNT 4.4 10^3/uL (4.0-10.0)
--- NOTE | 2020-08-14 15:43 | REP ---
INDICATION: Abdominal Pain COMPARISON: 05/18/2017. TECHNIQUE: PA/Lateral FINDINGS: Lungs: There are bibasilar infiltrates. Heart: Normal in size. Mediastinum: Mediastinal silhouette unremarkable. Pleural angles: Unremarkable.. Bones and soft tissues: Unremarkable. IMPRESSION: Bibasilar infiltrates. <Electronically signed by Manoj Delvalle > 08/14/20 [id number]
[2020-08-14 15:56] LABS: PLATELET COUNT, AUTOMATED 94 10^3/uL (150-450)
[2020-08-14 15:57] LABS: ABG BASE EXCESS -2.6 (-2.0-2.0); ABG HCO3 20.1 MEQ/L (22.0-26.0); ABG O2 SATURATION 96.7 % (95.0-99.0); ABG PARTIAL PRESSURE O2 85.4 mmHg (75.0-100.0); ABG STANDARD HCO3 22.3 MEQ/L (22.0-26.0); ABG TOTAL CO2 21.1 MEQ/L (22.0-29.0); ABG pH (ARTERIAL) 7.445 UNITS (7.350-7.450)
[2020-08-14 16:05] LABS: ALBUMIN 3.6 GM/DL (3.2-5.2); ALT/SGPT 27 U/L (12-78); BILIRUBIN,DIRECT 0.2 MG/DL (0.0-0.2); BILIRUBIN,TOTAL 0.2 MG/DL (0.2-1.0); BLOOD UREA NITROGEN 7 MG/DL (7-18); CALCIUM LEVEL 8.2 MG/DL (8.5-10.1); CARBON DIOXIDE LEVEL 22 MEQ/L (21-32); CHLORIDE LEVEL 103 MEQ/L (98-107); CK-MB VALUE MASS < 1.0 NG/ML (<3.6); CPK CREATINE PHOSPHOKINASE 103 U/L (26-192); CREATININE FOR GFR 1.05 MG/DL (0.55-1.30); GLOMERULAR FILTRATION RATE > 60.0 (>60); GLUCOSE, FASTING 103 MG/DL (70-100); LIPASE 180 U/L (73-393); MB/CK RELATIVE INDEX 0.97 (< OR =4); POTASSIUM SERUM 3.3 MEQ/L (3.5-5.1); SODIUM LEVEL 136 MEQ/L (136-145); TOTAL PROTEIN 7.4 GM/DL (6.4-8.2); TROPONIN I < 0.02 NG/ML (< 0.10)
[2020-08-14 16:09] LABS: ATYPICAL LYMPH 10 % (0-5); BASOPHILS 1 % (0-1); LYMPHOCYTES 28 % (16-44); MONOCYTES 1 % (0-5); NEUTROPHILS 50 % (28-66); PLATELET ESTIMATE DECREASED (NORMAL)
[2020-08-14] MEDS ORDERED: POTASSIUM CHLORIDE 10 MEQ SR TABLET PO ONE (17:15)
[2020-08-14] MEDS ORDERED: SUMAtriptan SUCCINATE 6 MG/0.5 ML VIAL SC ONE (17:25)
--- NOTE | 2020-08-14 17:32 | HPEPDOC ---
[facility] [place] Medical History & Physical Date of Admission August 14, 2020 Date of Service: August 14, 2020 History and Physical CHIEF COMPLAINT: Shortness of breath HISTORY OF PRESENT ILLNESS: 30 year old female hx of asthma. Diagnosed with COVID 19 infection past Wednesday (3 days ago). Presents to the ED complaining of SOB. Wednesday morning headaches started. Wednesday woke up with chills. Got tested Wednesday morning positive for COVID. Headaches still on and off since Wednesday. Has diarrhea since Wednesday on and off. Appetite low since Wednesday and not drinking or eating much. Denies loss of taste or smell. No cough or sputum production. Says body aches is one of her biggest concerns she feels like shes been hit by a truck. In the emergency department patient was ambulated and her saturation on room air dropped to 84%. During the exam she appeared anxious when I asked her whether she tells me she feels very anxious because she is left her 4-year-old at home and she is worried about her Covid infection. Patient will be admitted to the medical service for observation due to hypoxia secondary to Covid. PAST MEDICAL/SURGICAL HISTORY: Asthma Migraine headaches Right foot surgery SOCIAL HISTORY: Drinks alcohol socially Denies tobacco use Denies illicit drug use Lives at home with son who is 4 years old FAMILY HISTORY: Reviewed and none contributory to this admission ALLERGIES: Please see below. REVIEW OF SYSTEMS: 10 point review of systems complete all negative otherwise stated in HPI HOME MEDICATIONS: Please see below. PHYSICAL EXAMINATION: Constitutional: Awake and alert, appears anxious ENT: Sclera are clear. Mucosa is moist. Respiratory: Lungs diminished breath sounds bilaterally. No respiratory dis tress. No use of accessory muscles. Cardiovascular: RRR S1 and S2 are normal, no murmur Gastrointestinal: Abdomen is soft, non distended, non tender, BS present. Musculoskeletal: No lower extremity edema. Neurologic: No focal neurological deficit. Mental Status: A&O x3, normal affect Skin: Warm, dry LABORATORY DATA: See below. IMAGING: See chart MICROBIOLOGY: Please see below. ASSESSMENT/PLAN 30F hx Asthma admitted for hypoxia on exertion 2/2 COVID 19 infection # Hypoxic respiratory failure 2/2 Covid 19 infection: Obtain inflammatory markers. Trend inflammatory markers. IV Decadron daily. Lovenox COVID prophylactic dosing due to obesity. Continue supplemental oxygen O2 target 90% or better. Start Rimdasivir. Follow up procalcitonin to rule out superimposed bacterial infection. No susption of that at this time, no leukocytosis. Walk test tomorrow to determine need for home o2. # Hypokalemia: likely from diarrhea. Replace. Monitor. # Dehydration: from poor appetite and diarrhea form COVID. IVFs. # Anxiety: Likely related to fear of having Covid 19 infection. Low-dose benzodiazepine as needed. # Asthma: home inhalers as needed # DVT prophylaxis: Lovenox COVID prophylactic dose A [facility] Vital Signs Vital Signs Date Time Temp Pulse Resp B/P (MAP) Pulse Ox O2 Delivery O2 Flow Rate FiO2 08/14/20 16:59 84 Room Air 08/14/20 15:45 99.9 98 19 128/67 (87) 3.0 Laboratory Data Labs 24H Laboratory Tests 2 08/14/20 14:27: Blood Gas Bicarbonate Standard 22.3, Arterial Blood pH 7.445, Arterial Blood Partial Pressure CO2 30.0L, Arterial Blood Partial Pressure O2 85.4, Arterial Blood Total CO2 21.1L, Arterial Blood HCO3 20.1L, Arterial Blood Base Excess - 2.6L, Arterial Blood Oxygen Saturation 96.7 08/14/20 15:10: Neutrophils (%) (Auto) , Nucleated Red Blood Cells % (auto) 0.0, Neutrophils 50, Band Neutrophils 10, Lymphocytes (Manual) 28, Monocytes (Manual) 1, Basophils (Manual) 1, Atypical Lymphocytes 10H, Platelet Estimate DECREASED, Immature Platelet Fraction 4.3, Anion Gap 11, Glomerular Filtration Rate > 60.0, Lactic Acid Level 1.2, Calcium Level 8.2L, Total Bilirubin 0.2, Direct Bilirubin 0.2, Aspartate Amino Transf (AST/SGOT) 31, Alanine Aminotransferase (ALT/SGPT) 27, Alkaline Phosphatase 60, Total Creatine Kinase 103, Creatine Kinase MB < 1.0, Creatine Kinase MB Relative Index 0.97, Troponin I < 0.02, Total Protein 7.4, Albumin 3.6, Albumin/Globulin Ratio 0.9L, Lipase 180 CBC/BMP Laboratory Tests 08/14/20 15:10 Home Medications Scheduled PRN Acetaminophen (Acetaminophen) 325 Mg Tablet, 650 MG PO Q6H PRN for PAIN / FEVER Albuterol Sulfate (Ventolin Hfa) 18 Gm Hfa.aer.ad, 2 PUFF INH Q4H PRN for wheezing Ibuprofen (Ibuprofen) 200 Mg Capsule, 800 MG PO Q8H PRN for PAIN / FEVER Allergies Coded Allergies: No Known Drug Allergies (Verified Allergy, Unknown, 07/30/18) A-FIB/CHADSVASC A-FIB History Current/History of A-Fib/PAF?: No HILARY GUIDO MD August 14, 2020 17:32
[2020-08-14] MEDS ORDERED: DEBL1TAB PO (17:58)
[2020-08-14] MEDS ORDERED: PRED20TA PO (17:58)
[2020-08-14] MEDS: ALPRAZolam 0.5 MG TAB PO PRN (18:35)
[2020-08-14 18:49] LABS: INR 0.94; PROTHROMBIN TIME 12.8 SECONDS (12.5-14.3)
[2020-08-14 18:50] LABS: PARTIAL THROMBOPLASTIN TIME 36.5 SECONDS (24.2-38.5)
[2020-08-14 18:52] LABS: D-DIMER QUANT 1123.56 ng/ml (<500)
[2020-08-14 18:54] LABS: ALBUMIN 3.5 GM/DL (3.2-5.2); ALT/SGPT 26 U/L (12-78); BILIRUBIN,DIRECT < 0.1 MG/DL (0.0-0.2); BILIRUBIN,TOTAL 0.2 MG/DL (0.2-1.0); C REACTIVE PROTEIN QUANTITATIV 4.44 MG/DL (0.00-0.30); FERRITIN 380 NG/ML (8-252); LDH LACTATE DEHYDROGENASE 351 U/L (84-246)
--- NOTE | 2020-08-14 20:28 | ECGEPIP ---
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
[2020-08-14] MEDS ORDERED: REMDESIVIR 200 MG in NS 250 ML IV ONE (21:00)
[2020-08-14 21:20] VITALS: BP 131/74; O2SAT 92
[2020-08-14] MEDS: ENOXAPARIN 40MG/0.4ML SYRINGE (J1650 PER 10MG) SC SCH (22:22)
[2020-08-14] MEDS: CYCLOBENZAPRINE 5MG TABLET PO PRN (22:23)
[2020-08-14] MEDS: ACETAMINOPHEN TAB 650MG DOSE (2X325MG) PO PRN (22:23)
[2020-08-14] MEDS ORDERED: SODIUM CHLORIDE 0.9% INJ 10 ML SYR IV ONE (23:00)
[2020-08-15] VITALS (14 sets, daily range): BP systolic 96–108; BP diastolic 51–65; O2SAT 83–97
[2020-08-15] MEDS: ACETAMINOPHEN TAB 650MG DOSE (2X325MG) PO PRN ×2 (02:48→08:33)
[2020-08-15] MEDS: IBUPROFEN 400MG TAB PO PRN ×2 (04:30→13:21)
[2020-08-15 08:03] LABS: HEMATOCRIT 39.9 % (36.0-47.0); HEMOGLOBIN 13.4 g/dl (12.0-15.5); MEAN CORPUSCULAR HEMOGLOBIN 31.4 pg (27.0-33.0); MEAN CORPUSCULAR HGB CONC 33.6 g/dl (32.0-36.5); MEAN CORPUSCULAR VOLUME 93.4 fl (80.0-96.0); PLATELET COUNT, AUTOMATED 170 10^3/uL (150-450); RED BLOOD COUNT 4.27 10^6/uL (4.00-5.40)
--- NOTE | 2020-08-15 08:10 | ECGEPIP ---
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
[2020-08-15 08:21] LABS: BLOOD UREA NITROGEN 5 MG/DL (7-18); CALCIUM LEVEL 7.2 MG/DL (8.5-10.1); CARBON DIOXIDE LEVEL 21 MEQ/L (21-32); CHLORIDE LEVEL 107 MEQ/L (98-107); CREATININE FOR GFR 0.88 MG/DL (0.55-1.30); GLOMERULAR FILTRATION RATE > 60.0 (>60); GLUCOSE, FASTING 93 MG/DL (70-100); MAGNESIUM LEVEL 1.7 MG/DL (1.8-2.4); POTASSIUM SERUM 3.8 MEQ/L (3.5-5.1); SODIUM LEVEL 137 MEQ/L (136-145)
[2020-08-15 08:25] LABS: ATYPICAL LYMPH 5 % (0-5); EOSINOPHILS 1 % (0-3); LYMPHOCYTES 27 % (16-44); MONOCYTES 3 % (0-5); NEUTROPHILS 64 % (28-66); PLATELET ESTIMATE NORMAL (NORMAL)
[2020-08-15] MEDS: dexameTHASONE 4 MG/ML 1ML VIAL (J1100 PER 1MG) IV SCH (08:33)
[2020-08-15] MEDS: ENOXAPARIN 40MG/0.4ML SYRINGE (J1650 PER 10MG) SC SCH ×3 (08:33→19:38)
[2020-08-15] MEDS ORDERED: MAGNESIUM OXIDE 400MG TAB (MAG-OX) PO ONE (11:45)
--- NOTE | 2020-08-15 12:44 | IPNPDOC ---
Text Note Date of Service The patient was seen on 08/15/20. NOTE Subjective: Patient was seen and examined this morning at bedside. In the morning she was feeling more anxious and started becoming more tachypneic and her oxygen levels dropped about 80-85% she was placed on Vapotherm. Currently she is a lot more relaxed she says her breathing feels lot better especially when she is in the prone position. She saturating at 98%. She says the antianxiety medications help her relax. She denies chest pain. Says the diarrhea is better now. Still doesn't have an appetite hasn't been able to eat or drink much. No acute overnight events reported to me. Objective: Constitutional: Awake and alert, appears anxious ENT: Sclera are clear. Mucosa is moist. Respiratory: Lungs diminished breath sounds bilaterally. Some mild respiratory distress compared to yesterday she is more tachypneic however this improved with introduction of Vapotherm. No use of accessory muscles. Cardiovascular: RRR S1 and S2 are normal, no murmur Gastrointestinal: Abdomen is soft, non distended, non tender, BS present. Musculoskeletal: No lower extremity edema. Neurologic: No focal neurological deficit. Mental Status: A&O x3, normal affect Skin: Warm, dry Assessment/plan: 30F hx Asthma admitted for hypoxia on exertion 2/2 COVID 19 infection # Hypoxic respiratory failure 2/2 Covid 19 pneumonia infection: Now requiring Vapotherm. Trend inflammatory markers. IV Decadron daily. Lovenox COVID prophylactic dosing due to obesity. Continue Vapotherm target 90% or better. Continue Rimdasivir. Procalcitonin <0.05 which effectively rules out superimposed bacterial infection. No leukocytosis. Because of her worsening she was switched from observation to inpatient status. # Hypokalemia: likely from diarrhea. Replace. Monitor. # Dehydration: from poor appetite and diarrhea form COVID. IVFs. # Anxiety: Likely related to fear of having Covid 19 infection. Low-dose benzodiazepine as needed. Anxiety appears worse today but has improved after Xanax administration. # Asthma: home inhalers as needed # DVT prophylaxis: Lovenox COVID prophylactic dose A [facility] Hospitalist VS,Patricia, I+O VS, Yolae, I+O Laboratory Tests 08/14/20 15:10 08/15/20 06:42 Vital Signs Date Time Temp Pulse Resp B/P (MAP) Pulse Ox O2 Delivery O2 Flow Rate FiO2 08/15/20 10:46 97 HVNI-Vapotherm 30.0 60 08/15/20 08:35 98.9 88 20 101/60 (74) I&O- Last 24 Hours up to 6 AM 08/15/20 06:00 Intake Total 0 ml Output Total 0 ml Balance 0 ml HILARY GUIDO MD August 15, 2020 12:44
[2020-08-15] MEDS: ALPRAZolam 0.5 MG TAB PO PRN ×2 (13:30→20:00)
[2020-08-15] MEDS: REMDESIVIR 100 MG in NS 250 ML IV SCH (19:28)
[2020-08-15] MEDS: SODIUM CHLORIDE 0.9% INJ 10 ML SYR IV SCH (19:29)
[2020-08-15] MEDS ORDERED: MULTIVITAMINS/MINERALS THERAP 1 TAB PO ONE (20:25)
[2020-08-15] MEDS ORDERED: COMBIVENT RESPIMAT 100-20MCG INHALER 4GM INH PRN (20:30)
[2020-08-15] MEDS ORDERED: ASCORBIC ACID 250 MG TAB PO SCH (21:00)
[2020-08-15] MEDS ORDERED: ASCORBIC ACID 250 MG TAB PO ONE (21:30)
[2020-08-16] VITALS (11 sets, daily range): BP systolic 92–119; BP diastolic 51–63; O2SAT 90–97
[2020-08-16] MEDS: CYCLOBENZAPRINE 5MG TABLET PO PRN ×2 (02:08→21:17)
[2020-08-16] MEDS: IBUPROFEN 400MG TAB PO PRN ×2 (02:09→21:18)
[2020-08-16] MEDS: ASCORBIC ACID 250 MG TAB PO SCH (08:49)
[2020-08-16] MEDS: dexameTHASONE 4 MG/ML 1ML VIAL (J1100 PER 1MG) IV SCH (08:50)
[2020-08-16] MEDS: ENOXAPARIN 40MG/0.4ML SYRINGE (J1650 PER 10MG) SC SCH ×2 (08:50→21:00)
[2020-08-16] MEDS ORDERED: ASCORBIC ACID 250 MG TAB PO SCH (09:00)
[2020-08-16 09:41] LABS: HEMATOCRIT 42.4 % (36.0-47.0); HEMOGLOBIN 14.1 g/dl (12.0-15.5); LYMPH # 1.2 10^3/uL (1.5-5.0); LYMPH % 27.3 % (24.0-44.0); MEAN CORPUSCULAR HGB CONC 33.3 g/dl (32.0-36.5); MEAN CORPUSCULAR VOLUME 93.2 fl (80.0-96.0); MONO # 0.2 10^3/uL (0.0-0.8); MONO % 5.4 % (2.0-8.0); NEUTROPHILS # 2.9 10^3/uL (1.5-8.5); NEUTROPHILS % 67.1 % (36.0-66.0); PLATELET COUNT, AUTOMATED 192 10^3/uL (150-450); RED BLOOD COUNT 4.55 10^6/uL (4.00-5.40); WHITE BLOOD COUNT 4.3 10^3/uL (4.0-10.0)
[2020-08-16 09:51] LABS: INR 0.89; PROTHROMBIN TIME 12.2 SECONDS (12.5-14.3)
[2020-08-16 09:52] LABS: PARTIAL THROMBOPLASTIN TIME 31.6 SECONDS (24.2-38.5)
[2020-08-16 10:48] LABS: ALT/SGPT 24 U/L (12-78); BILIRUBIN,DIRECT < 0.1 MG/DL (0.0-0.2); BILIRUBIN,TOTAL 0.2 MG/DL (0.2-1.0); BLOOD UREA NITROGEN 10 MG/DL (7-18); CALCIUM LEVEL 8.6 MG/DL (8.5-10.1); CARBON DIOXIDE LEVEL 22 MEQ/L (21-32); CHLORIDE LEVEL 109 MEQ/L (98-107); CPK CREATINE PHOSPHOKINASE 161 U/L (26-192); CREATININE FOR GFR 0.76 MG/DL (0.55-1.30); FERRITIN 726 NG/ML (8-252); GLOMERULAR FILTRATION RATE > 60.0 (>60); GLUCOSE, FASTING 91 MG/DL (70-100); LDH LACTATE DEHYDROGENASE 436 U/L (84-246); MAGNESIUM LEVEL 2.3 MG/DL (1.8-2.4); NT-PRO BNP 58 PG/ML (<125); POTASSIUM SERUM 4.2 MEQ/L (3.5-5.1); SODIUM LEVEL 138 MEQ/L (136-145); TOTAL PROTEIN 6.3 GM/DL (6.4-8.2)
[2020-08-16] MEDS: ACETAMINOPHEN TAB 650MG DOSE (2X325MG) PO PRN (14:08)
--- NOTE | 2020-08-16 16:38 | IPNPDOC ---
Text Note Date of Service The patient was seen on 08/16/20. NOTE Subjective: Patient was seen and examined this morning at bedside. Tells me she's feeling a lot less anxious today. She finds that laying in her prone position has been the most helpful and brings up her oxygen saturation. However any exertion drops her oxygen such as sitting in the commode down to the 80s. Overall she does feel better and she was able to eat her breakfast this morning her appetite is slowly coming back diarrhea is also better. There is no acute overnight events reported to me she says her fevers are better and she hasn't felt febrile for the past 1 day Objective: Constitutional: Awake and alert, appears anxious ENT: Sclera are clear. Mucosa is moist. Respiratory: Lungs diminished breath sounds bilaterally. Some mild respiratory distress compared to yesterday she is more tachypneic however this improved with introduction of Vapotherm. No use of accessory muscles. Cardiovascular: RRR S1 and S2 are normal, no murmur Gastrointestinal: Abdomen is soft, non distended, non tender, BS present. Musculoskeletal: No lower extremity edema. Neurologic: No focal neurological deficit. Mental Status: A&O x3, normal affect Skin: Warm, dry Assessment/plan: 30F hx Asthma admitted for hypoxia on exertion 2/2 COVID 19 infection # Hypoxic respiratory failure 2/2 Covid 19 pneumonia infection: requiring Vapotherm. Attempt to wean off of Vapotherm. Trend inflammatory markers. IV Decadron daily. Lovenox COVID prophylactic dosing due to obesity. Continue Vapotherm target 90% or better. Continue Rimdasivir. Procalcitonin <0.05 which effectively rules out superimposed bacterial infection. No leukocytosis. Because of her worsening she was switched from observation to inpatient status. Continue prone positioning as tolerated. # Hypokalemia: likely from diarrhea. Replace. Monitor. Resolved. # Dehydration: from poor appetite and diarrhea form COVID. IVFs. That is now improving diarrhea is better. # Anxiety: Likely related to fear of having Covid 19 infection. Low-dose benzodiazepine as needed. Anxiety better today # Asthma: home inhalers as needed # DVT prophylaxis: Lovenox COVID prophylactic dose A [facility] VS,Fishbone, I+O VS, Fishbone, I+O Laboratory Tests 08/16/20 09:05 Vital Signs Date Time Temp Pulse Resp B/P (MAP) Pulse Ox O2 Delivery O2 Flow Rate FiO2 08/16/20 14:00 98.1 76 19 110/61 (28) 94 HVNI-Vapotherm 36.0 80 I&O- Last 24 Hours up to 6 AM 08/16/20 06:00 Intake Total 1190 ml Output Total 600 ml Balance 590 ml HILARY GUIDO MD August 16, 2020 16:38
[2020-08-16] MEDS: REMDESIVIR 100 MG in NS 250 ML IV SCH (21:14)
[2020-08-16] MEDS: SODIUM CHLORIDE 0.9% INJ 10 ML SYR IV SCH (21:23)
[2020-08-16] MEDS ORDERED: MULTIVITAMINS/MINERALS THERAP 1 TAB PO ONE (22:25)
[2020-08-17] VITALS (9 sets, daily range): BP systolic 103–123; BP diastolic 53–70; O2SAT 92–98
[2020-08-17] MEDS ORDERED: hydrOXYzine 25 MG TAB PO PRN (08:40)
[2020-08-17] MEDS ORDERED: ALBUTEROL 90 MCG/ACT 8GM HFA INHALER INH PRN (08:40)
[2020-08-17] MEDS: BENZONATATE 100 MG CAP PO PRN ×2 (09:20→14:42)
[2020-08-17] MEDS: MULTIVITAMINS/MINERALS THERAP 1 TAB PO SCH (09:21)
[2020-08-17] MEDS: ASCORBIC ACID 250 MG TAB PO SCH (09:21)
[2020-08-17] MEDS: dexameTHASONE 4 MG/ML 1ML VIAL (J1100 PER 1MG) IV SCH (09:21)
[2020-08-17] MEDS: ENOXAPARIN 40MG/0.4ML SYRINGE (J1650 PER 10MG) SC SCH ×2 (09:22→20:52)
[2020-08-17 10:40] LABS: BASO % 0.1 % (0.0-1.0); EOS % 0.1 % (0.0-3.0); HEMATOCRIT 39.8 % (36.0-47.0); HEMOGLOBIN 13.5 g/dl (12.0-15.5); LYMPH # 1.2 10^3/uL (1.5-5.0); LYMPH % 17.2 % (24.0-44.0); MEAN CORPUSCULAR HEMOGLOBIN 31.5 pg (27.0-33.0); MEAN CORPUSCULAR HGB CONC 33.9 g/dl (32.0-36.5); MONO # 0.3 10^3/uL (0.0-0.8); MONO % 4.5 % (2.0-8.0); NEUTROPHILS # 5.2 10^3/uL (1.5-8.5); NEUTROPHILS % 77.7 % (36.0-66.0); PLATELET COUNT, AUTOMATED 206 10^3/uL (150-450); RED BLOOD COUNT 4.28 10^6/uL (4.00-5.40); WHITE BLOOD COUNT 6.7 10^3/uL (4.0-10.0)
[2020-08-17 11:11] LABS: BLOOD UREA NITROGEN 12 MG/DL (7-18); CALCIUM LEVEL 8.1 MG/DL (8.5-10.1); CARBON DIOXIDE LEVEL 24 MEQ/L (21-32); CHLORIDE LEVEL 110 MEQ/L (98-107); CREATININE FOR GFR 0.72 MG/DL (0.55-1.30); GLOMERULAR FILTRATION RATE > 60.0 (>60); GLUCOSE, FASTING 107 MG/DL (70-100); MAGNESIUM LEVEL 2.1 MG/DL (1.8-2.4); SODIUM LEVEL 139 MEQ/L (136-145)
--- NOTE | 2020-08-17 13:04 | IPNPDOC ---
Text Note Date of Service The patient was seen on 08/17/20. NOTE Subjective: -No acute overnight events Objective: Constitutional: Awake and alert, appears anxious ENT: Sclera are clear. Mucosa is moist. Respiratory: Diminished breath sounds bilaterally. No use of accessory muscles. Cardiovascular: RRR S1 and S2 are normal, no murmur Gastrointestinal: Abdomen is soft, non distended, non tender, normoactive sounds Extremities: No lower extremity edema, WWP Neurologic: No focal neurological deficit. Mental Status: A&O x3, normal affect Skin: Warm, dry Labs: WBC 4.3 Platelets 192 Hgb 14.1 na 138 Cr 4.2 Cr 0.76 Assessment: 30 W with a history of Asthma who presented with SOB and admitted for acute hypoxemic respiratory failure 2/2 COVID 19 PNA. # Acute hypoxemc respiratory failure 2/2 Covid 19 pneumonia infection: -requiring Vapotherm. -Trend inflammatory markers. -6mg IV Decadron daily, day 3. -Lovenox COVID prophylactic dosing due to obesity and high D-dimer. -Day 3 of 5 of remedesivir -Procalcitonin <0.05 which effectively rules out superimposed bacterial infection. No leukocytosis. -Continue prone positioning as tolerated. -Incentive spirometry -combivent mdi PRN -tessalon perls TIDP for coughing # Hypokalemia: likely from diarrhea. Resolved. # Dehydration: from poor appetite and diarrhea from COVID. s/p IVFs. Diarrhea is resolving # Anxiety: Likely related to fear of having Covid 19 infection. DC be nzodiazepine and give hydoxyzine as needed. # Asthma: combivent # DVT prophylaxis: Lovenox COVID prophylactic dose VS,Fishbone, I+O VS, Fishbone, I+O Laboratory Tests 08/16/20 09:05 Vital Signs Date Time Temp Pulse Resp B/P (MAP) Pulse Ox O2 Delivery O2 Flow Rate FiO2 08/17/20 05:56 94 35.0 80 08/17/20 05:53 HVNI-Vapotherm 08/17/20 05:52 56 18 123/70 (87) 08/16/20 21:20 98.1 I&O- Last 24 Hours up to 6 AM 08/17/20 06:00 Intake Total 1270 ml Output Total 500 ml Balance 770 ml MIGUE JIMENES MD August 17, 2020 08:40
[2020-08-17] MEDS: REMDESIVIR 100 MG in NS 250 ML IV SCH (20:43)
[2020-08-17] MEDS: CYCLOBENZAPRINE 5MG TABLET PO PRN (20:44)
[2020-08-17] MEDS: IBUPROFEN 400MG TAB PO PRN (20:46)
[2020-08-17] MEDS: SODIUM CHLORIDE 0.9% INJ 10 ML SYR IV SCH (20:51)
[2020-08-18] VITALS (13 sets, daily range): BP systolic 113–119; BP diastolic 62–77; O2SAT 92–99
[2020-08-18] MEDS: BENZONATATE 100 MG CAP PO PRN (08:58)
[2020-08-18] MEDS: dexameTHASONE 4 MG/ML 1ML VIAL (J1100 PER 1MG) IV SCH (08:58)
[2020-08-18] MEDS: ASCORBIC ACID 250 MG TAB PO SCH (08:58)
[2020-08-18] MEDS: MULTIVITAMINS/MINERALS THERAP 1 TAB PO SCH (08:58)
[2020-08-18] MEDS: ENOXAPARIN 40MG/0.4ML SYRINGE (J1650 PER 10MG) SC SCH (08:59)
--- NOTE | 2020-08-18 15:21 | IPNPDOC ---
Text Note Date of Service The patient was seen on 08/18/20. NOTE Subjective: -No acute overnight events -Now on 65% FIO2 and 20L/min -complaining of some pleurisy pain with deep breathing with rib pain from coughing. Though she does note improvement in cough since Tessalon Perls TID was added. -She is very concerned about being discharged tomorrow nomatter her health status, because she will not have childcare for her 4 year old son. I told her that we would do our best to safely wean her oxygen and there is a possibility that I would be sending her home with oxygen therapy if she is still significantly hypoxemic. Objective: Constitutional: Awake and alert, ill appearing ENT: Sclera are clear. Mucosa is moist. Respiratory: Diminished breath sounds bilaterally. No use of accessory muscles. On vapotherm Cardiovascular: RRR S1 and S2 are normal, no murmur Gastrointestinal: Abdomen is soft, non distended, non tender, normoactive sounds Extremities: No lower extremity edema, WWP Neurologic: No focal neurological deficit. Mental Status: A&O x3, normal affect Skin: Warm, dry Labs: pending AM labs Assessment: 30 W with a history of Asthma who presented with SOB and admitted for acute hypoxemic respiratory failure 2/2 COVID 19 PNA. # Acute hypoxemc respiratory failure 2/2 Covid 19 pneumonia infection: -requiring Vapotherm. -Trend inflammatory markers. -6mg IV Decadron daily, day 4. -Lovenox 40mg daily for DVT ppx, refused BID dosing that she was initially placed on -Day 4 of 5 of remedesivir -Procalcitonin <0.05 which effectively rules out superimposed bacterial infection. No leukocytosis. -Continue prone positioning as tolerated. -Incentive spirometry -combivent mdi PRN -tessalon perls TIDP for coughing # Hypokalemia: likely from diarrhea. Resolved. # Dehydration: from poor appetite and diarrhea from COVID. s/p IVFs. Diarrhea is resolving # Anxiety: Likely related to fear of having Covid 19 infection. Continue hydoxyzine as needed. # Asthma: combivent # DVT prophylaxis: Lovenox 40mg daily SC VS,Fishbone, I+O VS, Fishbone, I+O Laboratory Tests 08/17/20 10:22 Vital Signs Date Time Temp Pulse Resp B/P (MAP) Pulse Ox O2 Delivery O2 Flow Rate FiO2 08/18/20 07:47 95 HVNI-Vapotherm 20.0 65 08/18/20 05:30 97.8 60 18 118/71 (87) I&O- Last 24 Hours up to 6 AM 08/18/20 06:00 Intake Total 1240 ml Output Total 0 ml Balance 1240 ml MIGUE JIMENES MD August 18, 2020 08:44
[2020-08-18] MEDS: CYCLOBENZAPRINE 5MG TABLET PO PRN (21:12)
[2020-08-18] MEDS: IBUPROFEN 400MG TAB PO PRN (21:12)
[2020-08-18] MEDS: REMDESIVIR 100 MG in NS 250 ML IV SCH (21:15)
[2020-08-18] MEDS: SODIUM CHLORIDE 0.9% INJ 10 ML SYR IV SCH (23:27)
[2020-08-19] VITALS: O2SAT 98
[2020-08-19 03:30] VITALS: BP 107/59
[2020-08-19 04:00] VITALS: O2SAT 98
--- NOTE | 2020-08-19 07:42 | DS.PDOC ---
Discharge Summary General Date of Admission August 14, 2020 at 17:32 Date of Discharge 08/19/2020 Attending Physician: MIGUE JIMENES MD Discharge Summary PROCEDURES PERFORMED DURING STAY: None ADMITTING DIAGNOSES: Covid-19 PNA DISCHARGE DIAGNOSES: COvid-19 PNA Hypoxemic respiratory failure Asthma exacerbation in the setting of covid-19 PNA COMPLICATIONS/CHIEF COMPLAINT: Covid +, Exertional Dyspnea. HISTORY OF PRESENT ILLNESS: 30 year old W with a hx of asthma who was diagnosed with COVID 19 infection 3 days prior to presentation, who presented to the ED complaining of SOB, fever, chills and diarrhea. HOSPITAL COURSE: In the emergency department the patient was ambulated and her saturation on room air dropped to 84% but she was otherwise hemodynamically stable. She was admitted for covid-19 infection. Her course was complicated by worsening hypoxemia requiring vapotherm with high oxygen requirements that eventually improved with remdesevir and decadron. She is now back on room air and is being discharged home where she will continue to self isolate for at least 2 weeks or until all symptoms have resolved. DISCHARGE MEDICATIONS: Please see below. ALLERGIES: Please see below. PHYSICAL EXAMINATION ON DISCHARGE: VITAL SIGNS: Please see below. Constitutional: Awake and alert, ill appearing ENT: Sclera are clear. Mucosa is moist. Respiratory: Diminished breath sounds bilaterally. No use of accessory muscles. No wheezing or crackles. Breathing comfortably on room air Cardiovascular: RRR S1 and S2 are normal, no murmur Gastrointestinal: Abdomen is soft, non distended, non tender, normoactive sounds Extremities: No lower extremity edema, WWP Neurologic: No focal neurological deficit. Mental Status: A&O x3, normal affect Skin: Warm, dry LABORATORY DATA: Please see below. IMAGING: CXR: Lungs: There are bibasilar infiltrates. Heart: Normal in size. Mediastinum: Mediastinal silhouette unremarkable. Pleural angles: Unremarkable.. Bones and soft tissues: Unremarkable. IMPRESSION: Bibasilar infiltrates. PROGNOSIS: Good ACTIVITY: As tolerated DIET: Regular DISCHARGE PLAN: Home with 5d of pred 40, albuterol inhaler PRN and tessalon perls for 1 week. DISPOSITION: Home DISCHARGE INSTRUCTIONS: Home with 5d of pred 40, albuterol inhaler PRN and tessalon perls for 1 week. ITEMS TO FOLLOWUP ON ON OUTPATIENT: Resolution of covid-19 PNA DISCHARGE CONDITION: Stable TIME SPENT ON DISCHARGE: 40 minutes. Vital Signs/I&Os Vital Signs Date Time Temp Pulse Resp B/P (MAP) Pulse Ox O2 Delivery O2 Flow Rate FiO2 08/19/20 04:00 98 High Flow Cannula 3.0 08/19/20 03:30 97.6 50 19 107/59 (75) 08/18/20 09:00 80 I&O- Last 24 Hours up to 6 AM 08/19/20 06:00 Intake Total 1350 ml Output Total 0 ml Balance 1350 ml Microbiology Microbiology 08/14/20 Urine Culture - Final, Complete Discharge Medications Scheduled PRN Acetaminophen (Acetaminophen) 325 Mg Tablet, 650 MG PO Q6H PRN for PAIN / FEVER, (Reported) Albuterol Sulfate (Ventolin Hfa) 18 Gm Hfa.aer.ad, 2 PUFF INH Q4H PRN for wheezing, (Reported) Ibuprofen (Ibuprofen) 200 Mg Capsule, 800 MG PO Q8H PRN for PAIN / FEVER, (Reported) Allergies Coded Allergies: No Known Drug Allergies (Verified Allergy, Unknown, 07/30/18) MIGUE JIMENES MD August 19, 2020 07:42
[2020-08-19] MEDS ORDERED: PRED20TA PO (07:55)
[2020-08-19] MEDS ORDERED: VENTAER INH (07:55)
[2020-08-19] MEDS ORDERED: BENZ-18 PO (07:55)
[2020-08-19 08:32] LABS: HEMATOCRIT 39.5 % (36.0-47.0); HEMOGLOBIN 13.5 g/dl (12.0-15.5); MEAN CORPUSCULAR HEMOGLOBIN 31.8 pg (27.0-33.0); MEAN CORPUSCULAR HGB CONC 34.2 g/dl (32.0-36.5); MEAN CORPUSCULAR VOLUME 92.9 fl (80.0-96.0); PLATELET COUNT, AUTOMATED 228 10^3/uL (150-450); RED BLOOD COUNT 4.25 10^6/uL (4.00-5.40); WHITE BLOOD COUNT 8.1 10^3/uL (4.0-10.0)
[2020-08-19 08:59] LABS: BLOOD UREA NITROGEN 13 MG/DL (7-18); CALCIUM LEVEL 8.6 MG/DL (8.5-10.1); CARBON DIOXIDE LEVEL 27 MEQ/L (21-32); CHLORIDE LEVEL 108 MEQ/L (98-107); CREATININE FOR GFR 0.92 MG/DL (0.55-1.30); GLOMERULAR FILTRATION RATE > 60.0 (>60); GLUCOSE, FASTING 84 MG/DL (70-100); MAGNESIUM LEVEL 2.1 MG/DL (1.8-2.4); POTASSIUM SERUM 4.3 MEQ/L (3.5-5.1); SODIUM LEVEL 140 MEQ/L (136-145)
[2020-08-19 09:06] LABS: ANISOCYTOSIS 1+; ATYPICAL LYMPH 6 % (0-5); LYMPHOCYTES 21 % (16-44); MONOCYTES 9 % (0-5); MYELOCYTES 1 % (0-0); PLATELET CLUMPS SMALL AMT; PLATELET ESTIMATE NORMAL (NORMAL)
[2020-08-19] MEDS: dexameTHASONE 4 MG/ML 1ML VIAL (J1100 PER 1MG) IV SCH (09:17)
[2020-08-19] MEDS: ENOXAPARIN 40MG/0.4ML SYRINGE (J1650 PER 10MG) SC SCH (09:17)
[2020-08-19] MEDS: MULTIVITAMINS/MINERALS THERAP 1 TAB PO SCH (09:17)
[2020-08-19] MEDS: ASCORBIC ACID 250 MG TAB PO SCH (09:17)
[2020-08-19 09:57] LABS: NEUTROPHILS 61 % (28-66)
[2020-08-20 16:09] LABS: MYCOPLASMA PNEUMONIAE IgG 305 U/mL (0-99); MYCOPLASMA PNEUMONIAE IgM <770 U/mL (0-769)
== END 2020-08-19 10:44 | disposition home or self-care (01) | DRG 137 ==
LOC: M ED 14:27 → M ED INP 17:32 → ENRESERV 20:02 → M 4MAIN 21:20
PROVIDERS: ADMIT Family Medicine; ATTEND Internal Medicine
PROC: XW033E5 Introduction of Remdesivir Anti-infective into Peripheral Vein, Percutaneous Approach, New Technology Group 5 (ICD-10-PCS; principal; 2020-08-14)
DX: U07.1 COVID-19 (principal); J96.01 Acute respiratory failure with hypoxia; J12.82 Pneumonia due to coronavirus disease 2019; J45.901 Unspecified asthma with (acute) exacerbation; G43.909 Migraine, unspecified, not intractable, without status migrainosus; E87.6 Hypokalemia; E86.0 Dehydration; F41.9 Anxiety disorder, unspecified

== ENCOUNTER 2020-11-04 06:39 | Emergency (ER) | payer OTHER ==
[~2020-11-04] VITALS: Ht 172.7 cm; Wt 83.6 kg
[~2020-11-04 06:39] MED LIST changes: +ACET-910 PO; +BENZ-18 PO; +DEBL1TAB PO
[2020-11-04 06:40] VITALS: BP 152/99
[2020-11-04] MEDS ORDERED: ACETAMINOPHEN TAB 650MG DOSE (2X325MG) PO ONE (08:05)
[2020-11-04] MEDS ORDERED: ONDANSETRON 4 MG TAB PO ONE (08:10)
[2020-11-04 09:06] LABS: RSV AMPLIFICATION NEGATIVE (NEGATIVE)
[2020-11-04 10:08] LABS: MONO SCRN NEGATIVE (NEGATIVE)
[2020-11-04] MEDS ORDERED: AMOX500C PO (10:12)
== END 2020-11-04 10:05 | disposition left against medical advice (07) ==
LOC: M ED 06:39
DX: R07.0 Pain in throat (principal); R13.10 Dysphagia, unspecified; Z53.20 Procedure and treatment not carried out because of patient's decision for unspecified reasons

== ENCOUNTER → 2020-11-21 | Outpatient (REF) ==
[~2020-11-21] MED LIST changes: +AMOX500C PO
== END ==
LOC: M LABSMTC 09:33
PROVIDERS: ATTEND Pediatrics
DX: Z11.52 Encounter for screening for COVID-19 (principal)

== ENCOUNTER → 2021-04-07 | Outpatient (CLI) | payer OTHER | LOC: M PLALAB 11:24 | PROVIDERS: ATTEND Nurse Practitioner Family | DX: Z11.1 Encounter for screening for respiratory tuberculosis (principal) ==

== ENCOUNTER 2021-07-06 13:44 | Emergency (ER) | payer OTHER ==
[~2021-07-06] VITALS: Ht 172.7 cm; Wt 81.8 kg
[2021-07-06 13:46] VITALS: BP 160/109
== END 2021-07-06 16:25 | disposition left against medical advice (07) ==
LOC: M ED 13:44
DX: Z53.21 Procedure and treatment not carried out due to patient leaving prior to being seen by health care provider (principal)

== ENCOUNTER → 2021-11-14 | Outpatient (CLI) | payer OTHER ==
[~2021-11-14] MED LIST changes: +ALBU2.5V10 INH; -ALBU83IN INH
[2021-11-14 13:54] LABS: BASO % 0.6 % (0.0-1.0); EOS # 0.2 10^3/uL (0.0-0.5); HEMATOCRIT 43.7 % (36.0-47.0); HEMOGLOBIN 14.2 g/dl (12.0-15.5); LYMPH # 2.5 10^3/uL (1.5-5.0); LYMPH % 39.6 % (24.0-44.0); MEAN CORPUSCULAR HEMOGLOBIN 30.9 pg (27.0-33.0); MEAN CORPUSCULAR HGB CONC 32.5 g/dl (32.0-36.5); MEAN CORPUSCULAR VOLUME 95.2 fl (80.0-96.0); MONO # 0.5 10^3/uL (0.0-0.8); MONO % 7.4 % (2.0-8.0); NEUTROPHILS # 3.1 10^3/uL (1.5-8.5); NEUTROPHILS % 49.2 % (36.0-66.0); PLATELET COUNT, AUTOMATED 338 10^3/uL (150-450); RED BLOOD COUNT 4.59 10^6/uL (4.00-5.40); WHITE BLOOD COUNT 6.4 10^3/uL (4.0-10.0)
[2021-11-14 14:31] LABS: HEMOGLOBIN A1c 5.2 %
[2021-11-14 14:40] LABS: ALBUMIN 4.1 GM/DL (3.2-5.2); ALT/SGPT 14 U/L (12-78); BILIRUBIN,TOTAL 0.6 MG/DL (0.2-1.0); BLOOD UREA NITROGEN 8 MG/DL (7-18); CALCIUM LEVEL 9.1 MG/DL (8.5-10.1); CARBON DIOXIDE LEVEL 27 MEQ/L (21-32); CHLORIDE LEVEL 109 MEQ/L (98-107); CHOLESTEROL LEVEL 151 MG/DL (<200); CHOLESTEROL RISK RATIO 2.903 (<5); CREATININE FOR GFR 1.05 MG/DL (0.55-1.30); FREE T4 0.98 NG/DL (0.76-1.46); GLOMERULAR FILTRATION RATE > 60.0 (>60); GLUCOSE, FASTING 86 MG/DL (70-100); HDL CHOLESTEROL 52 MG/DL (>40); LDL CHOLESTEROL 80 MG/DL (<100); NON-HDL-C 99 MG/DL; POTASSIUM SERUM 4.4 MEQ/L (3.5-5.1); SODIUM LEVEL 140 MEQ/L (136-145); THYROID STIMULATING HORMONE 0.762 uIU/ML (0.358-3.740); TOTAL PROTEIN 8.1 GM/DL (6.4-8.2); TRIGLYCERIDES LEVEL 97 MG/DL (<150)
[2021-11-14 14:54] LABS: ERYTHROCYTE SEDIMENTATION RATE 7 mm/hr (0-20)
[2021-11-14 15:17] LABS: TOTAL 25(OH) VITAMIN D 35.5 NG/ML (30.0-100.0)
[2021-11-18 01:08] LABS: ANA (HEP2) Negative (.); CYCLIC CITRULLINATED PEPTIDE 5 units (0-19)
== END ==
LOC: M PLALAB 11:00
PROVIDERS: ATTEND Nurse Practitioner Family
DX: R76.8 Other specified abnormal immunological findings in serum (principal); E55.9 Vitamin D deficiency, unspecified; A69.20 Lyme disease, unspecified; Z13.1 Encounter for screening for diabetes mellitus

== ENCOUNTER 2021-12-07 10:13 | Emergency (ER) | payer OTHER ==
[~2021-12-07] VITALS: Ht 172.7 cm; Wt 82.8 kg
[2021-12-07] MEDS ORDERED: IBUP1TAB7 PO (10:28)
[2021-12-07] MEDS ORDERED: ACET-683 PO (10:28)
[2021-12-07 12:06] LABS: BASO % 0.4 % (0.0-1.0); EOS % 0.8 % (0.0-3.0); HEMATOCRIT 42.5 % (36.0-47.0); HEMOGLOBIN 14.6 g/dl (12.0-15.5); LYMPH # 1.5 10^3/uL (1.5-5.0); LYMPH % 29.6 % (24.0-44.0); MEAN CORPUSCULAR HEMOGLOBIN 31.3 pg (27.0-33.0); MEAN CORPUSCULAR HGB CONC 34.4 g/dl (32.0-36.5); MONO # 0.5 10^3/uL (0.0-0.8); MONO % 9.1 % (2.0-8.0); NEUTROPHILS % 59.9 % (36.0-66.0); PLATELET COUNT, AUTOMATED 285 10^3/uL (150-450); RED BLOOD COUNT 4.67 10^6/uL (4.00-5.40)
[2021-12-07 12:37] LABS: HCG, SERUM QUALITATIVE NEGATIVE (NEGATIVE)
[2021-12-07 12:43] LABS: BLOOD UREA NITROGEN 6 MG/DL (7-18); CALCIUM LEVEL 9.6 MG/DL (8.5-10.1); CARBON DIOXIDE LEVEL 22 MEQ/L (21-32); CHLORIDE LEVEL 106 MEQ/L (98-107); CREATININE FOR GFR 0.97 MG/DL (0.55-1.30); GLOMERULAR FILTRATION RATE > 60.0 (>60); GLUCOSE, FASTING 85 MG/DL (70-100); SODIUM LEVEL 136 MEQ/L (136-145)
[2021-12-07 12:47] LABS: INR 0.93; PROTHROMBIN TIME 12.9 SECONDS (12.7-14.5)
[2021-12-07 12:50] LABS: D-DIMER QUANT 853.17 ng/ml (<500)
[2021-12-07] MEDS ORDERED: ISOVUE-370 76% 100ML VIAL As Ordered ONE (13:08)
[2021-12-07 13:12] LABS: CK-MB VALUE MASS < 1.0 NG/ML (<3.6); CPK CREATINE PHOSPHOKINASE 106 U/L (26-192); MB/CK RELATIVE INDEX 0.94 (< OR =4)
[2021-12-07] MEDS ORDERED: methylPREDNISolone 125MG 2ML VIAL IV ONE (13:40)
[2021-12-07 14:16] VITALS: BP 132/91
== END 2021-12-07 14:17 | disposition home or self-care (01) ==
LOC: M ED 10:13
DX: U07.1 COVID-19 (principal); R00.1 Bradycardia, unspecified; G43.909 Migraine, unspecified, not intractable, without status migrainosus; A69.20 Lyme disease, unspecified; F41.9 Anxiety disorder, unspecified; F32.A Depression, unspecified; F31.9 Bipolar disorder, unspecified
CPT/HCPCS: 71046; 71275; 80048; 82550; 82553; 84703; 85025; 85379; 85610; 85730; 93005; 96374; 99284; J2930; Q9967

== ENCOUNTER → 2022-05-12 | Outpatient (CLI) | payer OTHER ==
[~2022-05-12] MED LIST changes: +IBUP1TAB7 PO
[2022-05-12 14:47] LABS: BASO # 0.1 10^3/uL (0.0-0.2); BASO % 0.9 % (0.0-1.0); EOS # 0.1 10^3/uL (0.0-0.5); HEMATOCRIT 42.9 % (36.0-47.0); LYMPH # 3.1 10^3/uL (1.5-5.0); LYMPH % 45.3 % (24.0-44.0); MEAN CORPUSCULAR HEMOGLOBIN 31.2 pg (27.0-33.0); MEAN CORPUSCULAR HGB CONC 32.6 g/dl (32.0-36.5); MEAN CORPUSCULAR VOLUME 95.5 fl (80.0-96.0); MONO # 0.5 10^3/uL (0.0-0.8); NEUTROPHILS # 3.1 10^3/uL (1.5-8.5); NEUTROPHILS % 44.7 % (36.0-66.0); PLATELET COUNT, AUTOMATED 342 10^3/uL (150-450); RED BLOOD COUNT 4.49 10^6/uL (4.00-5.40); WHITE BLOOD COUNT 6.8 10^3/uL (4.0-10.0)
[2022-05-12 15:15] LABS: ERYTHROCYTE SEDIMENTATION RATE 14 mm/hr (0-20)
[2022-05-12 15:19] LABS: C REACTIVE PROTEIN QUANTITATIV < 0.40 MG/DL (<1.0); LIPASE 31 U/L (12-53)
[2022-05-12 15:20] LABS: ALBUMIN 4.2 G/DL (3.2-5.2); ALKALINE PHOSPHATASE 62 U/L (46-116); ALT/SGPT 11 U/L (7.0-40); AST/SGOT < 8 U/L (<34); BILIRUBIN,TOTAL 0.5 MG/DL (0.3-1.2); BLOOD UREA NITROGEN 10 MG/DL (9-23); CALCIUM LEVEL 9.5 MG/DL (8.5-10.1); CARBON DIOXIDE LEVEL 26 MMOL/L (20-31); CHLORIDE LEVEL 110 MMOL/L (98-107); CREATININE FOR GFR 0.97 MG/DL (0.55-1.30); GLOMERULAR FILTRATION RATE > 60.0 (>60); GLUCOSE, FASTING 83 MG/DL (60-100); POTASSIUM SERUM 4.5 MMOL/L (3.5-5.1); SODIUM LEVEL 139 MMOL/L (136-145); TOTAL PROTEIN 7.4 G/DL (5.7-8.2)
== END ==
LOC: M PLALAB 09:26
PROVIDERS: ATTEND Physician Assistant
DX: R10.9 Unspecified abdominal pain (principal)

== ENCOUNTER → 2022-05-13 | Outpatient (CLI) | payer OTHER | LOC: M RAD 07:01 → M WHC 07:01 | PROVIDERS: ATTEND Physician Assistant | DX: R14.0 Abdominal distension (gaseous) (principal); R10.9 Unspecified abdominal pain ==

== ENCOUNTER → 2022-05-14 | Outpatient (CLI) | payer OTHER | LOC: M RAD 08:19 | PROVIDERS: ATTEND Physician Assistant | DX: R14.0 Abdominal distension (gaseous) (principal); R10.9 Unspecified abdominal pain ==

== ENCOUNTER 2024-04-18 09:57 | Emergency (ER) | payer OTHER ==
[~2024-04-18] VITALS: Ht 172.7 cm; Wt 86.7 kg
[~2024-04-18 09:57] MED LIST changes: -CYCL5TAB PO; +CYCL5TAB4 PO
[2024-04-18] MEDS ORDERED: DEPO150I12 IM (10:09)
[2024-04-18 10:51] LABS: BASO # 0.1 10^3/uL (0.0-0.2); BASO % 0.7 % (0.0-1.0); EOS # 0.1 10^3/uL (0.0-0.5); EOS % 1.7 % (0.0-3.0); HEMATOCRIT 40.9 % (36.0-47.0); HEMOGLOBIN 14.1 g/dl (12.0-15.5); LYMPH # 2.4 10^3/uL (1.5-5.0); MEAN CORPUSCULAR HEMOGLOBIN 31.4 pg (27.0-33.0); MEAN CORPUSCULAR HGB CONC 34.5 g/dl (32.0-36.5); MEAN CORPUSCULAR VOLUME 91.1 fl (80.0-96.0); MONO # 0.6 10^3/uL (0.0-0.8); MONO % 8.2 % (2.0-8.0); NEUTROPHILS # 3.9 10^3/uL (1.5-8.5); NEUTROPHILS % 55.3 % (36.0-66.0); PLATELET COUNT, AUTOMATED 336 10^3/uL (150-450); RED BLOOD COUNT 4.49 10^6/uL (4.00-5.40); WHITE BLOOD COUNT 7.1 10^3/uL (4.0-10.0)
[2024-04-18 11:17] LABS: BLOOD UREA NITROGEN 8 MG/DL (9-23); CALCIUM LEVEL 9.3 MG/DL (8.5-10.1); CARBON DIOXIDE LEVEL 23 MMOL/L (20-31); CHLORIDE LEVEL 109 MMOL/L (98-107); CREATININE FOR GFR 1.02 MG/DL (0.55-1.30); GLOMERULAR FILTRATION RATE > 60.0 (>60); GLUCOSE, FASTING 104 MG/DL (60-100); SODIUM LEVEL 142 MMOL/L (136-145)
[2024-04-18 11:19] LABS: THYROID STIMULATING HORMONE 1.342 uIU/ML (0.55-4.78)
[2024-04-18] MEDS ORDERED: HOME MED LIST COMPLETE! XX SCH (12:15)
[2024-04-18] MEDS ORDERED: VENTAER INH (12:15)
[2024-04-18 12:30] VITALS: BP 137/66; TEMP 98.5; O2SAT 99
== END 2024-04-18 12:47 | disposition home or self-care (01) ==
LOC: M ED 09:57
DX: R00.2 Palpitations (principal); F41.9 Anxiety disorder, unspecified; B34.0 Adenovirus infection, unspecified; I45.10 Unspecified right bundle-branch block; F32.A Depression, unspecified; F10.10 Alcohol abuse, uncomplicated; Z87.891 Personal history of nicotine dependence; Z79.51 Long term (current) use of inhaled steroids; Z79.3 Long term (current) use of hormonal contraceptives

== ENCOUNTER → 2024-07-27 | Outpatient (CLI) | payer OTHER ==
[~2024-07-27] MED LIST changes: +DEPO150I12 IM
[2024-07-27 13:00] LABS: BASO % 0.5 % (0.0-1.0); EOS # 0.1 10^3/uL (0.0-0.5); EOS % 1.7 % (0.0-3.0); HEMATOCRIT 40.7 % (36.0-47.0); LYMPH # 2.4 10^3/uL (1.5-5.0); LYMPH % 39.5 % (24.0-44.0); MEAN CORPUSCULAR HEMOGLOBIN 30.4 pg (27.0-33.0); MEAN CORPUSCULAR HGB CONC 31.9 g/dl (32.0-36.5); MEAN CORPUSCULAR VOLUME 95.3 fl (80.0-96.0); MONO # 0.4 10^3/uL (0.0-0.8); MONO % 6.4 % (2.0-8.0); NEUTROPHILS # 3.1 10^3/uL (1.5-8.5); NEUTROPHILS % 51.7 % (36.0-66.0); PLATELET COUNT, AUTOMATED 323 10^3/uL (150-450); RED BLOOD COUNT 4.27 10^6/uL (4.00-5.40); WHITE BLOOD COUNT 6.1 10^3/uL (4.0-10.0)
[2024-07-27 13:35] LABS: ALBUMIN 3.9 G/DL (3.2-5.2); ALKALINE PHOSPHATASE 64 U/L (35-104); ALT/SGPT 13 U/L (7.0-40); AST/SGOT 9 U/L (<34); BILIRUBIN,TOTAL 0.3 MG/DL (0.3-1.2); BLOOD UREA NITROGEN 14 MG/DL (9-23); CARBON DIOXIDE LEVEL 26 MMOL/L (20-31); CHLORIDE LEVEL 106 MMOL/L (98-107); CHOLESTEROL LEVEL 149 MG/DL (<200); CHOLESTEROL RISK RATIO 2.58 (<5); CREATININE FOR GFR 0.85 MG/DL (0.55-1.30); FREE T4 1.32 NG/DL (0.89-1.76); GLOMERULAR FILTRATION RATE > 90.0 (>60); GLUCOSE, FASTING 99 MG/DL (60-100); HDL CHOLESTEROL 57.7 MG/DL (>40); LDL CHOLESTEROL 68.3 MG/DL (<100); NON-HDL-C 91.3 MG/DL; POTASSIUM SERUM 4.2 MMOL/L (3.5-5.1); SODIUM LEVEL 144 MMOL/L (136-145); THYROID STIMULATING HORMONE 0.589 uIU/ML (0.55-4.78); TOTAL 25(OH) VITAMIN D 36.3 NG/ML (20.0-100.0); TRIGLYCERIDES LEVEL 115 MG/DL (<150)
== END ==
LOC: M PLALAB 10:02
PROVIDERS: ATTEND Nurse Practitioner Family
DX: Z00.00 Encounter for general adult medical examination without abnormal findings (principal)

== ENCOUNTER → 2024-10-19 | Outpatient (CLI) | payer OTHER | LOC: M WHC 07:59 | PROVIDERS: ATTEND Nurse Practitioner Family | DX: R10.2 Pelvic and perineal pain (principal) ==

== ENCOUNTER → 2024-11-09 | Outpatient (CLI) | payer OTHER | LOC: M RAD 08:02 | PROVIDERS: ATTEND Nurse Practitioner Family | DX: I10 Essential (primary) hypertension (principal) ==

== ENCOUNTER → 2025-01-02 | Outpatient (CLI) | payer OTHER ==
[~2025-01-02] MED LIST changes: +ISOVUE-370 76% 100 ML VIAL As Ordered ONE
== END ==
LOC: M RAD 09:09
PROVIDERS: ATTEND Surgery
DX: R10.31 Right lower quadrant pain (principal); R91.8 Other nonspecific abnormal finding of lung field; R93.421 Abnormal radiologic findings on diagnostic imaging of right kidney
CPT/HCPCS: 74177; Q9967